=== PATIENT | female | born 1935 | race Caucasian/White ===

== ENCOUNTER 2018-03-27 16:18 | Inpatient (IN) | payer MEDICARE ==
[~2018-03-27] VITALS: Ht 162.6 cm; Wt 51.0 kg
[2018-03-27] MEDS ORDERED: DULO30CA2 PO (16:32)
[2018-03-27] MEDS ORDERED: IRBE300T3 PO (16:32)
[2018-03-27] MEDS ORDERED: MEMA10TA PO (16:32)
[2018-03-27] MEDS ORDERED: MELA3TAB2 PO (16:32)
[2018-03-27] MEDS ORDERED: ATOR10TA60 PO (16:32)
[2018-03-27] MEDS ORDERED: QUET25TA5 PO (16:32)
[2018-03-27] MEDS ORDERED: [UNRECOGNIZED DRUG - OTHER] SWSP (16:32)
[2018-03-27] MEDS ORDERED: TRAM50TA PO (16:32)
[2018-03-27 16:50] LABS: BASO # 0.1 x10^3/uL (0.0-0.2); BASO % 1 % (0-3); EOS # 0.1 x10^3/uL (0.0-0.7); EOS % 1 % (0-3); HEMATOCRIT 42.9 % (36.0-47.0); HEMOGLOBIN 14.3 g/dL (12.0-15.5); LYMPH # 3.3 x10^3/uL (1.0-4.8); LYMPH % 30 % (24-48); MEAN CORPUSCULAR HEMOGLOBIN 31 pg (25-35); MEAN CORPUSCULAR HGB CONC 33 g/dL (31-37); MEAN CORPUSCULAR VOLUME 94 fL (79-100); MONO # 0.9 x10^3/uL (0.0-1.1); MONO % 8 % (0-9); NEUT # 6.7 x10^3uL (1.8-7.7); NEUT % 60 % (31-73); PLATELET COUNT 229 x10^3/uL (140-400); RED BLOOD COUNT 4.57 x10^6/uL (3.50-5.40); WHITE BLOOD COUNT 11.2 x10^3/uL (4.0-11.0)
[2018-03-27 17:03] LABS: ALBUMIN 4.5 g/dL (3.4-5.0); ALBUMIN/GLOBULIN RATIO 1.2 (1.0-1.7); CALCIUM 10.5 mg/dL (8.5-10.1); CREATININE 1.6 mg/dL (0.6-1.0); GFR 30.9; POTASSIUM 3.5 mmol/L (3.5-5.1); TOTAL BILIRUBIN 0.7 mg/dL (0.2-1.0); TOTAL PROTEIN 8.2 g/dL (6.4-8.2)
--- NOTE | 2018-03-27 17:09 | EKG ---
[address] [address] Test Date: 2018-03-27 Test Time: 16:46:52 Pat Name: KLARISSA GRIGSBY Department: Room: Gender: F [employer] Maker: JASMEET : 1935 Requested By: NIMESH VASQUEZ Order Number: [id number] Reading MD: Curt Cordero Measurements Intervals [place] Rate: 85 P: 59 OK: 138 QRS: -20 QRSD: 94 T: 14 QT: 362 QTc: 436 Interpretive Statements SINUS RHYTHM LEFTWARD AXIS Electronically Signed On 03-31-2018 9:41:13 ASSISTANT HV[employer] MECH[employer]IC by Curt Cordero
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
[2018-03-27 17:38] LABS: BACTERIA,URINE 0 /HPF (0-FEW); BILIRUBIN,URINE NEG (NEG); CLARITY,URINE HAZY; COLOR,URINE AMBER; GLUCOSE,URINE NEG (NEG); HYALINE CASTS, URINE OCC /HPF; NITRITE,URINE NEG (NEG); RBC,URINE 0 /HPF (0-2); SQUAMOUS EPITHELIAL CELL,UR OCC /LPF; UROBILINOGEN,URINE 0.2 mg/dL (0.2 mg/dL)
[2018-03-27] MEDS ORDERED: SMZ/TMP 800/160MG TABLET. PO ONE (18:00)
[2018-03-27] MEDS ORDERED: ACETAMINOPHEN 325 MG TABLET PO PRN (18:15)
[2018-03-27] MEDS ORDERED: METHYL SALICYLATE/MENTHOL TOPICAL OINTMENT 29GM TUBE. TP PRN (18:15)
[2018-03-27] MEDS ORDERED: MAG HYDROX/AL HYDROX/SIMETH 30 ML ORAL.SUSP PO PRN (18:15)
[2018-03-27 18:17] VITALS: BP 172/94
[2018-03-27] MEDS: MELATONIN 3 MG TABLET PO SCH ×2 (19:41→21:00)
[2018-03-27] MEDS: QUEtiapine 25 MG TABLET. PO SCH ×2 (19:41→21:00)
[2018-03-27] MEDS: ATORVASTATIN CALCIUM 10 MG TABLET. PO SCH (20:31)
[2018-03-27] MEDS: MEMANTINE 10 MG TABLET. PO SCH (20:31)
[2018-03-27] MEDS: LIDOCAINE 2% VISCOUS 15 ML SOLUTION. SWSW SCH (21:00)
[2018-03-28] MEDS: QUEtiapine 25 MG TABLET. PO SCH ×2 (01:37→19:55)
[2018-03-28] MEDS: MELATONIN 3 MG TABLET PO SCH ×2 (01:37→19:55)
[2018-03-28 06:17] VITALS: BP 154/97
[2018-03-28] MEDS: MEMANTINE 10 MG TABLET. PO SCH ×2 (07:49→19:55)
[2018-03-28] MEDS: DULoxetine HCL 30 MG CAPSULE.DR PO SCH (07:49)
[2018-03-28] MEDS: LIDOCAINE 2% VISCOUS 15 ML SOLUTION. SWSW SCH ×4 (07:49→20:39)
[2018-03-28] MEDS: IRBESARTAN 150 MG PO SCH ×2 (07:49→07:50)
[2018-03-28] MEDS: traMADol 50 MG TABLET PO PRN ×2 (13:18→20:19)
[2018-03-28 15:49] VITALS: BP 159/93
[2018-03-28] MEDS: LISINOPRIL 10 MG TABLET PO SCH (16:31)
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
[2018-03-28 19:01] LABS: THYROID STIM HORMONE (TSH) 1.853 uIU/mL (0.358-3.740)
[2018-03-28] MEDS: ATORVASTATIN CALCIUM 10 MG TABLET. PO SCH (19:55)
[2018-03-28 21:09] LABS: THYROXINE 7.3 ug/dL (4.5-12.0)
[2018-03-29 00:08] LABS: HEMOGLOBIN A1C 5.5 % (4.8-5.6)
[2018-03-29 06:08] VITALS: BP 128/61
[2018-03-29] MEDS: MEMANTINE 10 MG TABLET. PO SCH ×2 (08:08→20:17)
[2018-03-29] MEDS: LIDOCAINE 2% VISCOUS 15 ML SOLUTION. SWSW SCH ×4 (08:08→20:39)
[2018-03-29] MEDS: DULoxetine HCL 30 MG CAPSULE.DR PO SCH (08:08)
[2018-03-29] MEDS: LISINOPRIL 10 MG TABLET PO SCH (08:08)
[2018-03-29] MEDS: NYSTATIN TOPICAL POWDER 15GM BOTTLE. TP SCH ×2 (08:09→20:40)
[2018-03-29] MEDS: traMADol 50 MG TABLET PO PRN (13:32)
[2018-03-29 15:58] VITALS: BP 127/84
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
[2018-03-29] MEDS: ATORVASTATIN CALCIUM 10 MG TABLET. PO SCH (20:17)
[2018-03-29] MEDS: QUEtiapine 25 MG TABLET. PO SCH (20:17)
[2018-03-29] MEDS: MELATONIN 3 MG TABLET PO SCH (20:17)
[2018-03-30 05:59] VITALS: BP 153/93
[2018-03-30] MEDS: LIDOCAINE 2% VISCOUS 15 ML SOLUTION. SWSW SCH ×4 (07:48→19:31)
[2018-03-30] MEDS: MEMANTINE 10 MG TABLET. PO SCH ×2 (09:11→19:30)
[2018-03-30] MEDS: DULoxetine HCL 30 MG CAPSULE.DR PO SCH (09:11)
[2018-03-30] MEDS: NYSTATIN TOPICAL POWDER 15GM BOTTLE. TP SCH ×2 (09:11→19:31)
[2018-03-30] MEDS: LISINOPRIL 10 MG TABLET PO SCH (09:11)
[2018-03-30 14:04] VITALS: BP 177/74
[2018-03-30 14:17] VITALS: BP 150/80
[2018-03-30 16:34] VITALS: BP 143/90
[2018-03-30 16:35] VITALS: BP 117/79
[2018-03-30 16:39] VITALS: BP 143/90
[2018-03-30] MEDS: QUEtiapine 25 MG TABLET. PO SCH (19:30)
[2018-03-30] MEDS: ATORVASTATIN CALCIUM 10 MG TABLET. PO SCH (19:30)
[2018-03-30] MEDS: MELATONIN 3 MG TABLET PO SCH (19:31)
[2018-03-31 05:51] VITALS: BP 151/83
[2018-03-31] MEDS: LIDOCAINE 2% VISCOUS 15 ML SOLUTION. SWSW SCH ×4 (07:30→20:21)
[2018-03-31] MEDS: DULoxetine HCL 30 MG CAPSULE.DR PO SCH (07:40)
[2018-03-31] MEDS: LISINOPRIL 10 MG TABLET PO SCH (07:40)
[2018-03-31] MEDS: MEMANTINE 10 MG TABLET. PO SCH ×2 (07:40→20:20)
[2018-03-31] MEDS: NYSTATIN TOPICAL POWDER 15GM BOTTLE. TP SCH ×2 (07:41→20:23)
--- NOTE | 2018-03-31 09:16 | PDOC ---
Exam Note: Eddie Note: Late entry for DOS 03/30/2018. Please also refer to the separate dictated note~ for this date of service dictated separately. Discussed the patient with Nursing staff reviewed the chart.~Reviewed interim history and current functioning. Reviewed vital signs,~Labs/ Radiology~and current medications noted below. Continue current treatment with the changes noted in the dictated addendum note Assessment: Vital Signs: VS - Last 72 Hours, by Label Date Time Temp Pulse Resp B/P (MAP) Pulse Ox O2 Delivery O2 Flow Rate FiO2 03/31/18 07:40 80 151/83 03/31/18 05:51 98.1 80 16 151/83 (105) 99 03/30/18 16:39 97.4 95 16 143/90 (107) 98 03/30/18 16:35 97.7 105 16 117/79 (92) 98 03/30/18 16:34 97.4 95 16 143/90 (107) 98 03/30/18 14:17 95 150/80 (103) 98 Room Air 03/30/18 14:04 98.9 102 177/74 (108) 93 Room Air 03/30/18 09:11 63 153/93 03/30/18 05:59 97.0 63 20 153/93 (113) 99 03/29/18 15:58 98.0 90 18 127/84 (98) 97 03/29/18 08:08 66 128/61 03/29/18 06:08 98.0 66 20 128/61 (83) 12 03/28/18 21:19 97 03/28/18 20:19 97 03/28/18 16:31 73 159/93 03/28/18 15:49 98.3 73 20 159/93 (115) 97 Vital Signs Date Time Temp Pulse Resp B/P (MAP) Pulse Ox O2 Delivery O2 Flow Rate FiO2 03/31/18 07:40 80 151/83 03/31/18 05:51 98.1 16 99 03/30/18 14:17 Room Air I&O Intake and Output 03/31/18 07:01 Intake Total 300 ml Balance 300 ml Intake Oral 300 ml Current Medications: Meds: Current Medications Trimethoprim/ Sulfamethoxazole (Bactrim Ds) 1 tab 1X ONCE PO Last administered on 03/27/18at 18:31; Start 03/27/18 at 18:00; Stop 03/28/18 at 14:01 ; Status DC Acetaminophen (Tylenol) 650 mg PRN Q6HRS PRN PO PAIN / TEMP; Start 03/27/18 at 18:15 Multi-Ingredient Ointment (Analgesic [place]) 1 majo PRN QID PRN TP MUSCLE PAIN; Start 03/27/18 at 18:15 Al Hydroxide/Mg Hydroxide (Mylanta Plus Xs) 15 ml PRN AFTMEALHC PRN PO DYSPEPSIA; Start 03/27/18 at 18:15 Magnesium Hydroxide (Milk Of Magnesia) 2,400 mg PRN QHS PRN PO CONSTIPATION; Start 03/27/18 at 18:15 Tramadol HCl (Ultram) 50 mg PRN Q6HRS PRN PO PAIN Last administered on at 13:32; Start 03/27/18 at 18:15 Atorvastatin Calcium (Lipitor) 10 mg QHS PO Last administered on 03/30/18 19: 30; Start 03/27/18 at 21:00 Duloxetine HCl (Cymbalta) 30 mg DAILY PO Last administered on 03/31/18 07:40; Start 03/28/18 at 09:00 Non-Formulary Medication (Irbesartan ) 150 mg DAILY PO ; Start 03/28/18 at 09:00 ; Stop 03/28/18 at 14:01; Status DC Melatonin 3 mg HS PO Last administered on 03/30/18 19:31; Start 03/27/18 at 21 :00 Memantine (Namenda) 10 mg BID PO Last administered on 03/31/18 07:40; Start at 21:00 Quetiapine Fumarate (SEROquel) 25 mg HS PO Last administered on 03/30/18 19:30 ; Start 03/27/18 at 21:00 Lidocaine HCl (Viscous Lidocaine) 5 ml QIDACHS SWSW Last administered on 16:39; Start 03/27/18 at 21:00 Lisinopril (Prinivil) 10 mg DAILY PO Last administered on 03/31/18 07:40; Start 03/28/18 at 14:00 Olanzapine (ZyPREXA ZYDIS) 2.5 mg PRN Q2HR PRN PO ANXIETY / AGITATION Last administered on 1/15/19at 08:32; Start 03/28/18 at 17:00 Trazodone HCl (Desyrel) 50 mg PRN QHS PRN PO INSOMNIA, MAY REPEAT X1; Start 03/04 at 17:00 Nystatin (Nystop) 1 majo BID TP Last administered on 03/31/18at 07:41; Start at 09:00 Active Scripts Active Reported Tramadol Hcl (Tramadol HCl) 50 Mg Tablet 50 Mg PO PRN Q6HRS PRN Seroquel (Quetiapine Fumarate) 25 Mg Tablet 25 Mg PO HS Namenda (Memantine Hcl) 10 Mg Tablet 10 Mg PO BID [viscous lidocain 2%] 5 Ml SWSP QIDACHS Melatonin 3 Mg Tablet 3 Mg PO HS Irbesartan 300 Mg Tablet 150 Mg PO DAILY Cymbalta (Duloxetine Hcl) 30 Mg Capsule.dr 30 Mg PO DAILY Atorvastatin Calcium 10 Mg Tablet 10 Mg PO QHS I have reviewed the current psychotropics carefully including drug interactions. Risk benefit ratio favors no change other than as noted in my dictated progress note. 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
[2018-03-31] MEDS: traMADol 50 MG TABLET PO PRN ×2 (10:59→20:23)
[2018-03-31 17:16] VITALS: BP 135/85
[2018-03-31] MEDS: traZODone 50 MG TABLET. PO PRN (20:20)
[2018-03-31] MEDS: ATORVASTATIN CALCIUM 10 MG TABLET. PO SCH (20:20)
[2018-03-31] MEDS: QUEtiapine 25 MG TABLET. PO SCH ×2 (20:20→20:23)
[2018-03-31] MEDS: MELATONIN 3 MG TABLET PO SCH (20:20)
--- NOTE | 2018-03-31 21:03 | PN ---
DATE: 03/30/2018 PSYCHIATRIC PROGRESS NOTE This late entry 03/30/2018 covers elements not covered in my initial note. SUBJECTIVE: I met with the patient in the evening at length in her room. Per nursing report, the patient's , Jose visited her and she remains quite resistive to medications, disorganized, agitated when staff was checking her blood pressure. She is unable to cooperate with doing the lidocaine swish and spit. Quite confused. REVIEW OF SYSTEMS: Ambulation impaired. No CV, , pulmonary, eye system symptoms on review. She is quite restless, anxious, constantly moving. MENTAL STATUS EXAM: Oriented to herself. Insight, judgment, recent and remote memory, attention, concentration, fund of knowledge poor, consistent with her diagnosis. IMPRESSION: Major neurocognitive disorder, Alzheimer, vascular with delusion, depression, behavioral disturbance. Rest unchanged. PLAN: Continue psychotropics from initial note. We may consider adjusting the Seroquel to help with her anxiety, restlessness. DERICK LINARES MD DR: HADLEY/maria elena JOB#: [id number] / [id number]
--- NOTE | 2018-03-31 22:43 | PDOC ---
Exam Note: Eddie Note: Please also refer to the separate dictated note~for this date of service dictated separately.~Patient seen individually. Discussed the patient with Nursing staff reviewed the chart.~Reviewed interim history and current functioning. Reviewed vital signs,~Labs/ Radiology~and current medications noted below. Continue current treatment with the changes noted in the dictated addendum note Assessment: Vital Signs: Vital Signs Date Time Temp Pulse Resp B/P (MAP) Pulse Ox O2 Delivery O2 Flow Rate FiO2 03/31/18 21:23 20 97 03/31/18 17:16 98.8 89 135/85 (102) 03/31/18 12:15 Room Air I&O Intake and Output 03/31/18 07:01 Intake Total 300 ml Balance 300 ml Intake Oral 300 ml Current Medications: Meds: Current Medications Trimethoprim/ Sulfamethoxazole (Bactrim Ds) 1 tab 1X ONCE PO Last administered on 03/27/18at 18:31; Start 03/27/18 at 18:00; Stop 03/28/18 at 14:01 ; Status DC Acetaminophen (Tylenol) 650 mg PRN Q6HRS PRN PO PAIN / TEMP; Start 03/27/18 at 18:15 Multi-Ingredient Ointment (Analgesic [place]) 1 majo PRN QID PRN TP MUSCLE PAIN; Start 03/27/18 at 18:15 Al Hydroxide/Mg Hydroxide (Mylanta Plus Xs) 15 ml PRN AFTMEALHC PRN PO DYSPEPSIA; Start 03/27/18 at 18:15 Magnesium Hydroxide (Milk Of Magnesia) 2,400 mg PRN QHS PRN PO CONSTIPATION; Start 03/27/18 at 18:15 Tramadol HCl (Ultram) 50 mg PRN Q6HRS PRN PO PAIN Last administered on at 20:23; Start 03/27/18 at 18:15 Atorvastatin Calcium (Lipitor) 10 mg QHS PO Last administered on 03/31/18at 20: 20; Start 03/27/18 at 21:00 Duloxetine HCl (Cymbalta) 30 mg DAILY PO Last administered on 03/31/18at 07:40; Start 03/28/18 at 09:00 Non-Formulary Medication (Irbesartan ) 150 mg DAILY PO ; Start 03/28/18 at 09:00 ; Stop 03/28/18 at 14:01; Status DC Melatonin 3 mg HS PO Last administered on 03/31/18 20:20; Start 03/27/18 at 21 :00 Memantine (Namenda) 10 mg BID PO Last administered on 03/31/18 20:20; Start at 21:00 Quetiapine Fumarate (SEROquel) 25 mg HS PO Last administered on 03/31/18 20:20 ; Start 03/27/18 at 21:00; Stop 03/31/18 at 21:00; Status DC Lidocaine HCl (Viscous Lidocaine) 5 ml QIDACHS SWSW Last administered on 20:21; Start 03/27/18 at 21:00 Lisinopril (Prinivil) 10 mg DAILY PO Last administered on 03/31/18 07:40; Start 03/28/18 at 14:00 Olanzapine (ZyPREXA ZYDIS) 2.5 mg PRN Q2HR PRN PO ANXIETY / AGITATION Last administered on 03/31/18 20:22; Start 03/28/18 at 17:00 Trazodone HCl (Desyrel) 50 mg PRN QHS PRN PO INSOMNIA, MAY REPEAT X1 Last administered on 03/31/18 20:20; Start 03/28/18 at 17:00 Nystatin (Nystop) 1 majo BID TP Last administered on 03/31/18 20:23; Start at 09:00 Quetiapine Fumarate (SEROquel) 12.5 mg TID@0900,1700,2100 PO Last administered on 03/31/18 20:23; Start 03/31/18 at 21:00 Active Scripts Active Reported Tramadol Hcl (Tramadol HCl) 50 Mg Tablet 50 Mg PO PRN Q6HRS PRN Seroquel (Quetiapine Fumarate) 25 Mg Tablet 25 Mg PO HS Namenda (Memantine Hcl) 10 Mg Tablet 10 Mg PO BID [viscous lidocain 2%] 5 Ml SWSP QIDACHS Melatonin 3 Mg Tablet 3 Mg PO HS Irbesartan 300 Mg Tablet 150 Mg PO DAILY Cymbalta (Duloxetine Hcl) 30 Mg Capsule.dr 30 Mg PO DAILY Atorvastatin Calcium 10 Mg Tablet 10 Mg PO QHS I have reviewed the current psychotropics carefully including drug interactions. Risk benefit ratio favors no change other than as noted in my dictated progress note. Diagnosis: Problems: (1) Dementia (2) Agitation (3) Anxiety disorder (4) Dementia, vascular, with delusions (5) Dementia, vascular, with depression (6) Dementia in Alzheimer's disease with depression (7) Dementia in Alzheimer's disease with delusions (8) Impulse control disorder DERICK LINARES MD Mar 31, 2018 22:43
[2018-04-01 05:47] VITALS: BP 159/89
[2018-04-01 07:17] LABS: BASO % 1 % (0-3); EOS # 0.2 x10^3/uL (0.0-0.7); EOS % 3 % (0-3); HEMATOCRIT 38.5 % (36.0-47.0); HEMOGLOBIN 12.8 g/dL (12.0-15.5); LYMPH # 2.6 x10^3/uL (1.0-4.8); LYMPH % 42 % (24-48); MEAN CORPUSCULAR HEMOGLOBIN 31 pg (25-35); MEAN CORPUSCULAR HGB CONC 33 g/dL (31-37); MEAN CORPUSCULAR VOLUME 94 fL (79-100); MONO # 0.6 x10^3/uL (0.0-1.1); MONO % 10 % (0-9); NEUT # 2.7 x10^3uL (1.8-7.7); NEUT % 44 % (31-73); PLATELET COUNT 162 x10^3/uL (140-400); RED BLOOD COUNT 4.11 x10^6/uL (3.50-5.40); WHITE BLOOD COUNT 6.2 x10^3/uL (4.0-11.0)
[2018-04-01 07:31] LABS: ALBUMIN 3.8 g/dL (3.4-5.0); ALBUMIN/GLOBULIN RATIO 1.2 (1.0-1.7); CALCIUM 9.8 mg/dL (8.5-10.1); CREATININE 1.6 mg/dL (0.6-1.0); GFR 30.9; POTASSIUM 3.5 mmol/L (3.5-5.1); TOTAL BILIRUBIN 0.7 mg/dL (0.2-1.0)
[2018-04-01] MEDS: LISINOPRIL 10 MG TABLET PO SCH (08:00)
[2018-04-01] MEDS: DULoxetine HCL 30 MG CAPSULE.DR PO SCH (08:01)
[2018-04-01] MEDS: QUEtiapine 25 MG TABLET. PO SCH ×3 (08:01→19:52)
[2018-04-01] MEDS: MEMANTINE 10 MG TABLET. PO SCH ×2 (08:01→19:58)
[2018-04-01] MEDS: NYSTATIN TOPICAL POWDER 15GM BOTTLE. TP SCH ×2 (08:01→19:59)
[2018-04-01] MEDS: LIDOCAINE 2% VISCOUS 15 ML SOLUTION. SWSW SCH (08:02)
[2018-04-01] MEDS: traMADol 50 MG TABLET PO PRN (10:31)
[2018-04-01 15:51] VITALS: BP 132/82
[2018-04-01] MEDS: traZODone 50 MG TABLET. PO PRN (19:53)
[2018-04-01] MEDS: MELATONIN 3 MG TABLET PO SCH (19:53)
[2018-04-01] MEDS: ATORVASTATIN CALCIUM 10 MG TABLET. PO SCH (19:53)
--- NOTE | 2018-04-01 20:27 | PN ---
DATE: 03/31/2018 PSYCHIATRIC PROGRESS NOTE This late entry 03/31/2018 covers elements not covered in my initial note. SUBJECTIVE: I met with the patient in the evening. The patient slept 7-3/4 hours previous night, remains quite confused, agitated, disorganized, threw her book in a rather aggressive manner at another patient. Received Zyprexa, had to be placed in the [place]. Gait is unsteady. Information from the family relates that she has a long history of anxiety and in the 1940s, she would carry Valium with her all the time for the anxiety. REVIEW OF SYSTEMS: No CV, , pulmonary, eye, ENT system symptoms on review. Reliability poor. MENTAL STATUS EXAM: Oriented to herself. Insight, judgment, recent and remote memory, attention, concentration, fund of knowledge poor, consistent with her diagnosis. She seems quite paranoid as I met with her at some length. LABORATORY DATA: Reviewed. IMPRESSION: Major neurocognitive disorder, Alzheimer, vascular with delusion, depression, behavioral disturbance; anxiety disorder, unspecified; impulse control disorder, unspecified. PLAN: Change Seroquel 25 mg at bedtime to 12.5 mg 9 a.m., 5:00 p.m. and at bedtime. Maintain Namenda, Cymbalta along with Zyprexa p.r.n., trazodone p.r.n. for now. DERICK LINARES MD DR: HADLEY/maria elena JOB#: [id number] / [id number]
--- NOTE | 2018-04-01 22:41 | PDOC ---
Exam Note: Eddie Note: Please also refer to the separate dictated note~for this date of service dictated separately.~Patient seen individually. Discussed the patient with Nursing staff reviewed the chart.~Reviewed interim history and current functioning. Reviewed vital signs,~Labs/ Radiology~and current medications noted below. Continue current treatment with the changes noted in the dictated addendum note Assessment: Vital Signs: Vital Signs Date Time Temp Pulse Resp B/P (MAP) Pulse Ox O2 Delivery O2 Flow Rate FiO2 04/01/18 15:51 98.4 84 18 132/82 (99) 95 04/01/18 12:40 Room Air I&O Intake and Output 04/01/18 07:01 Intake Total 600 ml Balance 600 ml Intake Oral 600 ml # Bowel Movements 1 Labs: Laboratory Tests Test 04/01/18 06:48 White Blood Count 6.2 x10^3/uL (4.0-11.0) Red Blood Count 4.11 x10^6/uL (3.50-5.40) Hemoglobin 12.8 g/dL (12.0-15.5) Hematocrit 38.5 % (36.0-47.0) Mean Corpuscular Volume 94 fL (79-100) Mean Corpuscular Hemoglobin 31 pg (25-35) Mean Corpuscular Hemoglobin Concent 33 g/dL (31-37) Red Cell Distribution Width 13.0 % (11.5-14.5) Platelet Count 162 x10^3/uL (140-400) Neutrophils (%) (Auto) 44 % (31-73) Lymphocytes (%) (Auto) 42 % (24-48) Monocytes (%) (Auto) 10 % (0-9) H Eosinophils (%) (Auto) 3 % (0-3) Basophils (%) (Auto) 1 % (0-3) Neutrophils # (Auto) 2.7 x10^3uL (1.8-7.7) Lymphocytes # (Auto) 2.6 x10^3/uL (1.0-4.8) Monocytes # (Auto) 0.6 x10^3/uL (0.0-1.1) Eosinophils # (Auto) 0.2 x10^3/uL (0.0-0.7) Basophils # (Auto) 0.0 x10^3/uL (0.0-0.2) Sodium Level 146 mmol/L (136-145) H Potassium Level 3.5 mmol/L (3.5-5.1) Chloride Level 107 mmol/L (98-107) Carbon Dioxide Level 29 mmol/L (21-32) Anion Gap 10 (6-14) Blood Urea Nitrogen 32 mg/dL (7-20) H Creatinine 1.6 mg/dL (0.6-1.0) H Estimated GFR (Cockcroft-Gault) 30.9 BUN/Creatinine Ratio 20 (6-20) Glucose Level 86 mg/dL (70-99) Calcium Level 9.8 mg/dL (8.5-10.1) Total Bilirubin 0.7 mg/dL (0.2-1.0) Aspartate Amino Transferase (AST) 15 U/L (15-37) Alanine Aminotransferase (ALT) 17 U/L (14-59) Alkaline Phosphatase 48 U/L (46-116) Total Protein 7.0 g/dL (6.4-8.2) Albumin 3.8 g/dL (3.4-5.0) Albumin/Globulin Ratio 1.2 (1.0-1.7) Current Medications: Meds: Current Medications Trimethoprim/ Sulfamethoxazole (Bactrim Ds) 1 tab 1X ONCE PO Last administered on 03/27/18at 18:31; Start 03/27/18 at 18:00; Stop 03/28/18 at 14:01 ; Status DC Acetaminophen (Tylenol) 650 mg PRN Q6HRS PRN PO PAIN / TEMP; Start 03/27/18 at 18:15 Multi-Ingredient Ointment (Analgesic [place]) 1 majo PRN QID PRN TP MUSCLE PAIN; Start 03/27/18 at 18:15 Al Hydroxide/Mg Hydroxide (Mylanta Plus Xs) 15 ml PRN AFTMEALHC PRN PO DYSPEPSIA; Start 03/27/18 at 18:15 Magnesium Hydroxide (Milk Of Magnesia) 2,400 mg PRN QHS PRN PO CONSTIPATION; Start 03/27/18 at 18:15 Tramadol HCl (Ultram) 50 mg PRN Q6HRS PRN PO PAIN Last administered on at 10:31; Start 03/27/18 at 18:15 Atorvastatin Calcium (Lipitor) 10 mg QHS PO Last administered on 04/01/18 19: 53; Start 03/27/18 at 21:00 Duloxetine HCl (Cymbalta) 30 mg DAILY PO Last administered on 04/01/18at 08:01; Start 03/28/18 at 09:00 Non-Formulary Medication (Irbesartan ) 150 mg DAILY PO ; Start 03/28/18 at 09:00 ; Stop 03/28/18 at 14:01; Status DC Melatonin 3 mg HS PO Last administered on 04/01/18 19:53; Start 03/27/18 at 21 :00 Memantine (Namenda) 10 mg BID PO Last administered on 04/01/18 19:58; Start at 21:00 Quetiapine Fumarate (SEROquel) 25 mg HS PO Last administered on 03/31/18 20:20 ; Start 03/27/18 at 21:00; Stop 03/31/18 at 21:00; Status DC Lidocaine HCl (Viscous Lidocaine) 5 ml QIDACHS SWSW Last administered on 08:02; Start 03/27/18 at 21:00; Stop 04/01/18 at 12:18; Status DC Lisinopril (Prinivil) 10 mg DAILY PO Last administered on 04/01/18 08:00; Start 03/28/18 at 14:00 Olanzapine (ZyPREXA ZYDIS) 2.5 mg PRN Q2HR PRN PO ANXIETY / AGITATION Last administered on 03/31/18 20:22; Start 03/28/18 at 17:00 Trazodone HCl (Desyrel) 50 mg PRN QHS PRN PO INSOMNIA, MAY REPEAT X1 Last administered on 04/01/18 19:53; Start 03/28/18 at 17:00 Nystatin (Nystop) 1 majo BID TP Last administered on 04/01/18 19:59; Start at 09:00 Quetiapine Fumarate (SEROquel) 12.5 mg TID@0900,1700,2100 PO Last administered on 04/01/18 19:52; Start 03/31/18 at 21:00 Active Scripts Active Reported Tramadol Hcl (Tramadol HCl) 50 Mg Tablet 50 Mg PO PRN Q6HRS PRN Seroquel (Quetiapine Fumarate) 25 Mg Tablet 25 Mg PO HS Namenda (Memantine Hcl) 10 Mg Tablet 10 Mg PO BID [viscous lidocain 2%] 5 Ml SWSP QIDACHS Melatonin 3 Mg Tablet 3 Mg PO HS Irbesartan 300 Mg Tablet 150 Mg PO DAILY Cymbalta (Duloxetine Hcl) 30 Mg Capsule.dr 30 Mg PO DAILY Atorvastatin Calcium 10 Mg Tablet 10 Mg PO QHS I have reviewed the current psychotropics carefully including drug interactions. Risk benefit ratio favors no change other than as noted in my dictated progress note. Diagnosis: Problems: (1) Dementia (2) Agitation (3) Anxiety disorder (4) Dementia, vascular, with delusions (5) Dementia, vascular, with depression (6) Dementia in Alzheimer's disease with depression (7) Dementia in Alzheimer's disease with delusions (8) Impulse control disorder DERICK LINARES MD Apr 01, 2018 22:41
[2018-04-02 05:15] VITALS: BP 132/85
[2018-04-02] MEDS: MEMANTINE 10 MG TABLET. PO SCH ×2 (08:16→19:10)
[2018-04-02] MEDS: DULoxetine HCL 30 MG CAPSULE.DR PO SCH (08:16)
[2018-04-02] MEDS: QUEtiapine 25 MG TABLET. PO SCH ×3 (08:16→19:13)
[2018-04-02] MEDS: LISINOPRIL 10 MG TABLET PO SCH (08:16)
[2018-04-02] MEDS: NYSTATIN TOPICAL POWDER 15GM BOTTLE. TP SCH ×2 (08:17→19:13)
[2018-04-02 15:51] VITALS: BP 122/76
[2018-04-02] MEDS: MELATONIN 3 MG TABLET PO SCH (19:10)
[2018-04-02] MEDS: ATORVASTATIN CALCIUM 10 MG TABLET. PO SCH (19:10)
[2018-04-02] MEDS: traZODone 50 MG TABLET. PO PRN (19:13)
--- NOTE | 2018-04-02 19:52 | PN ---
DATE: 04/01/2018 This late entry for 04/01/2018 covers elements not covered in my initial note. SUBJECTIVE: I met with the patient in the evening. The patient was quite agitated previous night, slept 6-3/4 hours, drowsy during the day on 04/01/2018, complains of back pain. REVIEW OF SYSTEMS: No CV, , pulmonary, eye system symptoms on review. Reliability poor. Gait unsteady, in [place] chair. MENTAL STATUS EXAM: Oriented to herself. Insight, judgment, recent and remote memory, attention, concentration, fund of knowledge poor, consistent with her diagnosis. No active suicidal ideation. LABORATORY DATA: Reviewed. IMPRESSION: Major neurocognitive disorder, Alzheimer, vascular with delusion, depression, behavioral disturbance; anxiety disorder, unspecified; impulse control disorder, unspecified. PLAN: Continue current psychotropics. No change from initial note. We will adjust further post-assessment over the next day or so. DERICK LINARES MD DR: HADLEY/maria elena JOB#: [id number] / [id number]
--- NOTE | 2018-04-02 23:12 | PDOC ---
Exam Note: Eddie Note: Please also refer to the separate dictated note~for this date of service dictated separately.~Patient seen individually. Discussed the patient with Nursing staff reviewed the chart.~Reviewed interim history and current functioning. Reviewed vital signs,~Labs/ Radiology~and current medications noted below. Continue current treatment with the changes noted in the dictated addendum note Assessment: Vital Signs: Vital Signs Date Time Temp Pulse Resp B/P (MAP) Pulse Ox O2 Delivery O2 Flow Rate FiO2 04/02/18 15:51 97.6 76 17 122/76 (91) 97 Room Air I&O Intake and Output 04/02/18 07:01 Intake Total 740 ml Balance 740 ml Intake Oral 740 ml Current Medications: Meds: Current Medications Trimethoprim/ Sulfamethoxazole (Bactrim Ds) 1 tab 1X ONCE PO Last administered on 03/27/18at 18:31; Start 03/27/18 at 18:00; Stop 03/28/18 at 14:01 ; Status DC Acetaminophen (Tylenol) 650 mg PRN Q6HRS PRN PO PAIN / TEMP; Start 03/27/18 at 18:15 Multi-Ingredient Ointment (Analgesic [place]) 1 majo PRN QID PRN TP MUSCLE PAIN; Start 03/27/18 at 18:15 Al Hydroxide/Mg Hydroxide (Mylanta Plus Xs) 15 ml PRN AFTMEALHC PRN PO DYSPEPSIA; Start 03/27/18 at 18:15 Magnesium Hydroxide (Milk Of Magnesia) 2,400 mg PRN QHS PRN PO CONSTIPATION; Start 03/27/18 at 18:15 Tramadol HCl (Ultram) 50 mg PRN Q6HRS PRN PO PAIN Last administered on at 10:31; Start 03/27/18 at 18:15 Atorvastatin Calcium (Lipitor) 10 mg QHS PO Last administered on 04/02/18at 19: 10; Start 03/27/18 at 21:00 Duloxetine HCl (Cymbalta) 30 mg DAILY PO Last administered on 04/02/18at 08:16; Start 03/28/18 at 09:00 Non-Formulary Medication (Irbesartan ) 150 mg DAILY PO ; Start 03/28/18 at 09:00 ; Stop 03/28/18 at 14:01; Status DC Melatonin 3 mg HS PO Last administered on 04/02/18 19:10; Start 03/27/18 at 21 :00 Memantine (Namenda) 10 mg BID PO Last administered on 04/02/18at 19:10; Start at 21:00 Quetiapine Fumarate (SEROquel) 25 mg HS PO Last administered on 03/31/18at 20:20 ; Start 03/27/18 at 21:00; Stop 03/31/18 at 21:00; Status DC Lidocaine HCl (Viscous Lidocaine) 5 ml QIDACHS SWSW Last administered on 08:02; Start 03/27/18 at 21:00; Stop 04/01/18 at 12:18; Status DC Lisinopril (Prinivil) 10 mg DAILY PO Last administered on 04/02/18at 08:16; Start 03/28/18 at 14:00 Olanzapine (ZyPREXA ZYDIS) 2.5 mg PRN Q2HR PRN PO ANXIETY / AGITATION Last administered on 03/31/18at 20:22; Start 03/28/18 at 17:00 Trazodone HCl (Desyrel) 50 mg PRN QHS PRN PO INSOMNIA, MAY REPEAT X1 Last administered on 04/02/18 19:13; Start 03/28/18 at 17:00 Nystatin (Nystop) 1 majo BID TP Last administered on 04/02/18at 19:13; Start at 09:00 Quetiapine Fumarate (SEROquel) 12.5 mg TID@0900,1700,2100 PO Last administered on 04/02/18at 19:13; Start 03/31/18 at 21:00 Active Scripts Active Reported Tramadol Hcl (Tramadol HCl) 50 Mg Tablet 50 Mg PO PRN Q6HRS PRN Seroquel (Quetiapine Fumarate) 25 Mg Tablet 25 Mg PO HS Namenda (Memantine Hcl) 10 Mg Tablet 10 Mg PO BID [viscous lidocain 2%] 5 Ml SWSP QIDACHS Melatonin 3 Mg Tablet 3 Mg PO HS Irbesartan 300 Mg Tablet 150 Mg PO DAILY Cymbalta (Duloxetine Hcl) 30 Mg Capsule.dr 30 Mg PO DAILY Atorvastatin Calcium 10 Mg Tablet 10 Mg PO QHS I have reviewed the current psychotropics carefully including drug interactions. Risk benefit ratio favors no change other than as noted in my dictated progress note. Diagnosis: Problems: (1) Dementia (2) Agitation (3) Anxiety disorder (4) Dementia, vascular, with delusions (5) Dementia, vascular, with depression (6) Dementia in Alzheimer's disease with depression (7) Dementia in Alzheimer's disease with delusions (8) Impulse control disorder DERICK LINARES MD Apr 02, 2018 23:12
[2018-04-03] MEDS: traMADol 50 MG TABLET PO PRN ×2 (02:34→19:46)
[2018-04-03 05:43] VITALS: BP 151/87
[2018-04-03] MEDS: DULoxetine HCL 30 MG CAPSULE.DR PO SCH (07:07)
[2018-04-03] MEDS: QUEtiapine 25 MG TABLET. PO SCH ×3 (07:07→19:38)
[2018-04-03] MEDS: NYSTATIN TOPICAL POWDER 15GM BOTTLE. TP SCH ×2 (07:07→19:39)
[2018-04-03] MEDS: LISINOPRIL 10 MG TABLET PO SCH (07:07)
[2018-04-03] MEDS: MEMANTINE 10 MG TABLET. PO SCH ×2 (07:07→19:38)
[2018-04-03 16:15] VITALS: BP 134/77
[2018-04-03] MEDS: ATORVASTATIN CALCIUM 10 MG TABLET. PO SCH (19:38)
[2018-04-03] MEDS: MELATONIN 3 MG TABLET PO SCH (19:38)
[2018-04-03] MEDS: MIRTAZAPINE 7.5 MG TABLET. PO SCH (19:38)
--- NOTE | 2018-04-03 20:08 | PN ---
DATE: 04/02/2018 This late entry for 04/02/2018 covers elements not covered in my initial note. SUBJECTIVE: I met with the patient in the evening and staffed at a treatment team meeting with the entire team in the morning. The patient slept 6-1/4 hours previous evening. Appetite is 50%. She is restless, complains of pain, received lidocaine patch, drowsy, disorganized most of the day. Reportedly from her history, she used to be a certified nursing assistant instructor in Humanities at . She did attend physical therapy intervention on 04/02/2018. REVIEW OF SYSTEMS: Ambulation impaired, in wheelchair. No CV, , pulmonary, eye, ENT system symptoms on review. Gait unsteady. MENTAL STATUS EXAM: Oriented to herself. Insight, judgment, recent and remote memory, attention, concentration, fund of knowledge poor, consistent with her diagnosis. IMPRESSION: Major neurocognitive disorder, Alzheimer, vascular with delusion, depression, behavioral disturbance. Rest unchanged from initial note. PLAN: No change from initial note. DERICK LINARES MD DR: HADLEY/maria elena JOB#: [id number] / [id number]
--- NOTE | 2018-04-03 23:56 | PDOC ---
Exam Note: Eddie Note: Please also refer to the separate dictated note~for this date of service dictated separately.~Patient seen individually. Discussed the patient with Nursing staff reviewed the chart.~Reviewed interim history and current functioning. Reviewed vital signs,~Labs/ Radiology~and current medications noted below. Continue current treatment with the changes noted in the dictated addendum note Assessment: Vital Signs: Vital Signs Date Time Temp Pulse Resp B/P (MAP) Pulse Ox O2 Delivery O2 Flow Rate FiO2 04/03/18 20:46 96 04/03/18 16:15 98.0 94 20 134/77 (96) 04/03/18 05:43 Room Air I&O Intake and Output 04/03/18 07:01 Intake Total 420 ml Balance 420 ml Intake Oral 420 ml Current Medications: Meds: Current Medications Trimethoprim/ Sulfamethoxazole (Bactrim Ds) 1 tab 1X ONCE PO Last administered on 03/27/18at 18:31; Start 03/27/18 at 18:00; Stop 03/28/18 at 14:01 ; Status DC Acetaminophen (Tylenol) 650 mg PRN Q6HRS PRN PO PAIN / TEMP; Start 03/27/18 at 18:15 Multi-Ingredient Ointment (Analgesic [place]) 1 majo PRN QID PRN TP MUSCLE PAIN; Start 03/27/18 at 18:15 Al Hydroxide/Mg Hydroxide (Mylanta Plus Xs) 15 ml PRN AFTMEALHC PRN PO DYSPEPSIA; Start 03/27/18 at 18:15 Magnesium Hydroxide (Milk Of Magnesia) 2,400 mg PRN QHS PRN PO CONSTIPATION; Start 03/27/18 at 18:15 Tramadol HCl (Ultram) 50 mg PRN Q6HRS PRN PO PAIN Last administered on at 19:46; Start 03/27/18 at 18:15 Atorvastatin Calcium (Lipitor) 10 mg QHS PO Last administered on 04/03/18at 19: 38; Start 03/27/18 at 21:00 Duloxetine HCl (Cymbalta) 30 mg DAILY PO Last administered on 04/03/18at 07:07; Start 03/28/18 at 09:00 Non-Formulary Medication (Irbesartan ) 150 mg DAILY PO ; Start 03/28/18 at 09:00 ; Stop 03/28/18 at 14:01; Status DC Melatonin 3 mg HS PO Last administered on 04/03/18 19:38; Start 03/27/18 at 21 :00 Memantine (Namenda) 10 mg BID PO Last administered on 04/03/18at 19:38; Start at 21:00 Quetiapine Fumarate (SEROquel) 25 mg HS PO Last administered on 03/31/18at 20:20 ; Start 03/27/18 at 21:00; Stop 03/31/18 at 21:00; Status DC Lidocaine HCl (Viscous Lidocaine) 5 ml QIDACHS SWSW Last administered on at 08:02; Start 03/27/18 at 21:00; Stop 04/01/18 at 12:18; Status DC Lisinopril (Prinivil) 10 mg DAILY PO Last administered on 04/03/18 07:07; Start 03/28/18 at 14:00 Olanzapine (ZyPREXA ZYDIS) 2.5 mg PRN Q2HR PRN PO ANXIETY / AGITATION Last administered on 04/03/18at 02:29; Start 03/28/18 at 17:00 Trazodone HCl (Desyrel) 50 mg PRN QHS PRN PO INSOMNIA, MAY REPEAT X1 Last administered on 04/02/18at 19:13; Start 03/28/18 at 17:00 Nystatin (Nystop) 1 majo BID TP Last administered on 04/03/18at 19:39; Start at 09:00 Quetiapine Fumarate (SEROquel) 12.5 mg TID@0900,1700,2100 PO Last administered on 04/03/18at 19:38; Start 03/31/18 at 21:00 Mirtazapine (Remeron) 7.5 mg QHS PO Last administered on 04/03/18at 19:38; Start 04/03/18 at 21:00 Active Scripts Active Reported Tramadol Hcl (Tramadol HCl) 50 Mg Tablet 50 Mg PO PRN Q6HRS PRN Seroquel (Quetiapine Fumarate) 25 Mg Tablet 25 Mg PO HS Namenda (Memantine Hcl) 10 Mg Tablet 10 Mg PO BID [viscous lidocain 2%] 5 Ml SWSP QIDACHS Melatonin 3 Mg Tablet 3 Mg PO HS Irbesartan 300 Mg Tablet 150 Mg PO DAILY Cymbalta (Duloxetine Hcl) 30 Mg Capsule.dr 30 Mg PO DAILY Atorvastatin Calcium 10 Mg Tablet 10 Mg PO QHS I have reviewed the current psychotropics carefully including drug interactions. Risk benefit ratio favors no change other than as noted in my dictated progress note. Diagnosis: Problems: (1) Dementia (2) Agitation (3) Anxiety disorder (4) Dementia, vascular, with delusions (5) Dementia, vascular, with depression (6) Dementia in Alzheimer's disease with depression (7) Dementia in Alzheimer's disease with delusions (8) Impulse control disorder DERICK LINARES MD Apr 03, 2018 23:56
[2018-04-04 05:28] VITALS: BP 135/87
[2018-04-04] MEDS: MEMANTINE 10 MG TABLET. PO SCH ×2 (07:55→19:40)
[2018-04-04] MEDS: DULoxetine HCL 30 MG CAPSULE.DR PO SCH (07:55)
[2018-04-04] MEDS: LISINOPRIL 10 MG TABLET PO SCH (07:57)
[2018-04-04] MEDS: QUEtiapine 25 MG TABLET. PO SCH ×3 (07:58→19:41)
[2018-04-04] MEDS: NYSTATIN TOPICAL POWDER 15GM BOTTLE. TP SCH ×2 (08:08→19:41)
[2018-04-04 15:33] VITALS: BP 119/80
[2018-04-04] MEDS: CHOLECALCIFEROL (VITAMIN D3) 50,000 UNIT CAPSULE PO SCH (16:13)
[2018-04-04] MEDS: traMADol 50 MG TABLET PO PRN (19:40)
[2018-04-04] MEDS: MIRTAZAPINE 7.5 MG TABLET. PO SCH (19:40)
[2018-04-04] MEDS: MELATONIN 3 MG TABLET PO SCH (19:41)
[2018-04-04] MEDS: ATORVASTATIN CALCIUM 10 MG TABLET. PO SCH (19:41)
--- NOTE | 2018-04-04 23:59 | PDOC ---
Exam Note: Eddie Note: Please also refer to the separate dictated note~for this date of service dictated separately.~Patient seen individually. Discussed the patient with Nursing staff reviewed the chart.~Reviewed interim history and current functioning. Reviewed vital signs,~Labs/ Radiology~and current medications noted below. Continue current treatment with the changes noted in the dictated addendum note Assessment: Vital Signs: Vital Signs Date Time Temp Pulse Resp B/P (MAP) Pulse Ox O2 Delivery O2 Flow Rate FiO2 04/04/18 20:40 94 04/04/18 15:33 97.7 87 18 119/80 (93) 04/03/18 05:43 Room Air I&O Intake and Output 04/04/18 07:01 Intake Total 600 ml Balance 600 ml Intake Oral 600 ml Current Medications: Meds: Current Medications Trimethoprim/ Sulfamethoxazole (Bactrim Ds) 1 tab 1X ONCE PO Last administered on 03/27/18at 18:31; Start 03/27/18 at 18:00; Stop 03/28/18 at 14:01 ; Status DC Acetaminophen (Tylenol) 650 mg PRN Q6HRS PRN PO PAIN / TEMP; Start 03/27/18 at 18:15 Multi-Ingredient Ointment (Analgesic [place]) 1 majo PRN QID PRN TP MUSCLE PAIN; Start 03/27/18 at 18:15 Al Hydroxide/Mg Hydroxide (Mylanta Plus Xs) 15 ml PRN AFTMEALHC PRN PO DYSPEPSIA; Start 03/27/18 at 18:15 Magnesium Hydroxide (Milk Of Magnesia) 2,400 mg PRN QHS PRN PO CONSTIPATION; Start 03/27/18 at 18:15 Tramadol HCl (Ultram) 50 mg PRN Q6HRS PRN PO PAIN Last administered on at 19:40; Start 03/27/18 at 18:15 Atorvastatin Calcium (Lipitor) 10 mg QHS PO Last administered on 04/04/18at 19: 41; Start 03/27/18 at 21:00 Duloxetine HCl (Cymbalta) 30 mg DAILY PO Last administered on 04/04/18at 07:55; Start 03/28/18 at 09:00 Non-Formulary Medication (Irbesartan ) 150 mg DAILY PO ; Start 03/28/18 at 09:00 ; Stop 03/28/18 at 14:01; Status DC Melatonin 3 mg HS PO Last administered on 04/04/18 19:41; Start 03/27/18 at 21 :00 Memantine (Namenda) 10 mg BID PO Last administered on 04/04/18 19:40; Start at 21:00 Quetiapine Fumarate (SEROquel) 25 mg HS PO Last administered on 03/31/18 20:20 ; Start 03/27/18 at 21:00; Stop 03/31/18 at 21:00; Status DC Lidocaine HCl (Viscous Lidocaine) 5 ml QIDACHS SWSW Last administered on 08:02; Start 03/27/18 at 21:00; Stop 04/01/18 at 12:18; Status DC Lisinopril (Prinivil) 10 mg DAILY PO Last administered on 04/04/18 07:57; Start 03/28/18 at 14:00 Olanzapine (ZyPREXA ZYDIS) 2.5 mg PRN Q2HR PRN PO ANXIETY / AGITATION Last administered on 04/03/18 02:29; Start 03/28/18 at 17:00 Trazodone HCl (Desyrel) 50 mg PRN QHS PRN PO INSOMNIA, MAY REPEAT X1 Last administered on 04/02/18 19:13; Start 03/28/18 at 17:00 Nystatin (Nystop) 1 majo BID TP Last administered on 04/04/18 19:41; Start at 09:00 Quetiapine Fumarate (SEROquel) 12.5 mg TID@0900,1700,2100 PO Last administered on 04/04/18 19:41; Start 03/31/18 at 21:00 Mirtazapine (Remeron) 7.5 mg QHS PO Last administered on 04/04/18 19:40; Start 04/03/18 at 21:00 Vitamin D (Vitamin D3) 50,000 unit WEEKLY PO Last administered on 04/04/18 16: 13; Start 04/04/18 at 16:15 Active Scripts Active Reported Tramadol Hcl (Tramadol HCl) 50 Mg Tablet 50 Mg PO PRN Q6HRS PRN Seroquel (Quetiapine Fumarate) 25 Mg Tablet 25 Mg PO HS Namenda (Memantine Hcl) 10 Mg Tablet 10 Mg PO BID [viscous lidocain 2%] 5 Ml SWSP QIDACHS Melatonin 3 Mg Tablet 3 Mg PO HS Irbesartan 300 Mg Tablet 150 Mg PO DAILY Cymbalta (Duloxetine Hcl) 30 Mg Capsule.dr 30 Mg PO DAILY Atorvastatin Calcium 10 Mg Tablet 10 Mg PO QHS I have reviewed the current psychotropics carefully including drug interactions. Risk benefit ratio favors no change other than as noted in my dictated progress note. Diagnosis: Problems: (1) Dementia (2) Agitation (3) Anxiety disorder (4) Dementia, vascular, with delusions (5) Dementia, vascular, with depression (6) Dementia in Alzheimer's disease with depression (7) Dementia in Alzheimer's disease with delusions (8) Impulse control disorder DERICK LINARES MD Apr 04, 2018 23:59
[2018-04-05 05:50] VITALS: BP 141/85
[2018-04-05] MEDS: MEMANTINE 10 MG TABLET. PO SCH ×2 (08:03→19:42)
[2018-04-05] MEDS: QUEtiapine 25 MG TABLET. PO SCH ×3 (08:03→19:42)
[2018-04-05] MEDS: DULoxetine HCL 30 MG CAPSULE.DR PO SCH (08:03)
[2018-04-05] MEDS: LISINOPRIL 10 MG TABLET PO SCH (08:04)
[2018-04-05] MEDS: NYSTATIN TOPICAL POWDER 15GM BOTTLE. TP SCH ×2 (08:04→19:42)
[2018-04-05 15:40] VITALS: BP 128/94
[2018-04-05] MEDS: MELATONIN 3 MG TABLET PO SCH (19:42)
[2018-04-05] MEDS: MIRTAZAPINE 7.5 MG TABLET. PO SCH (19:42)
[2018-04-05] MEDS: ATORVASTATIN CALCIUM 10 MG TABLET. PO SCH (19:42)
[2018-04-05] MEDS: traMADol 50 MG TABLET PO PRN (19:47)
--- NOTE | 2018-04-05 22:32 | PDOC ---
Exam Note: Eddie Note: Please also refer to the separate dictated note~for this date of service dictated separately. Discussed the patient with Nursing staff reviewed the chart.~Reviewed interim history and current functioning. Reviewed vital signs,~ Labs/ Radiology~and current medications noted below. Continue current treatment with the changes noted in the dictated addendum note Assessment: Vital Signs: Vital Signs Date Time Temp Pulse Resp B/P (MAP) Pulse Ox O2 Delivery O2 Flow Rate FiO2 04/05/18 20:47 98 04/05/18 15:40 97.6 90 16 128/94 (105) 04/03/18 05:43 Room Air I&O Intake and Output 04/05/18 07:01 Intake Total 890 ml Output Total 1 ml Balance 889 ml Intake Oral 840 ml Tube Feeding 50 ml Output Urine Total 1 ml Current Medications: Meds: Current Medications Trimethoprim/ Sulfamethoxazole (Bactrim Ds) 1 tab 1X ONCE PO Last administered on 03/27/18at 18:31; Start 03/27/18 at 18:00; Stop 03/28/18 at 14:01 ; Status DC Acetaminophen (Tylenol) 650 mg PRN Q6HRS PRN PO PAIN / TEMP; Start 03/27/18 at 18:15 Multi-Ingredient Ointment (Analgesic [place]) 1 majo PRN QID PRN TP MUSCLE PAIN; Start 03/27/18 at 18:15 Al Hydroxide/Mg Hydroxide (Mylanta Plus Xs) 15 ml PRN AFTMEALHC PRN PO DYSPEPSIA; Start 03/27/18 at 18:15 Magnesium Hydroxide (Milk Of Magnesia) 2,400 mg PRN QHS PRN PO CONSTIPATION; Start 03/27/18 at 18:15 Tramadol HCl (Ultram) 50 mg PRN Q6HRS PRN PO PAIN Last administered on at 19:47; Start 03/27/18 at 18:15 Atorvastatin Calcium (Lipitor) 10 mg QHS PO Last administered on 04/05/18at 19: 42; Start 03/27/18 at 21:00 Duloxetine HCl (Cymbalta) 30 mg DAILY PO Last administered on 04/05/18at 08:03; Start 03/28/18 at 09:00 Non-Formulary Medication (Irbesartan ) 150 mg DAILY PO ; Start 03/28/18 at 09:00 ; Stop 03/28/18 at 14:01; Status DC Melatonin 3 mg HS PO Last administered on 04/05/18 19:42; Start 03/27/18 at 21 :00 Memantine (Namenda) 10 mg BID PO Last administered on 04/05/18at 19:42; Start at 21:00 Quetiapine Fumarate (SEROquel) 25 mg HS PO Last administered on 03/31/18at 20:20 ; Start 03/27/18 at 21:00; Stop 03/31/18 at 21:00; Status DC Lidocaine HCl (Viscous Lidocaine) 5 ml QIDACHS SWSW Last administered on 08:02; Start 03/27/18 at 21:00; Stop 04/01/18 at 12:18; Status DC Lisinopril (Prinivil) 10 mg DAILY PO Last administered on 04/05/18at 08:04; Start 03/28/18 at 14:00 Olanzapine (ZyPREXA ZYDIS) 2.5 mg PRN Q2HR PRN PO ANXIETY / AGITATION Last administered on 04/03/18at 02:29; Start 03/28/18 at 17:00 Trazodone HCl (Desyrel) 50 mg PRN QHS PRN PO INSOMNIA, MAY REPEAT X1 Last administered on 04/02/18 19:13; Start 03/28/18 at 17:00 Nystatin (Nystop) 1 majo BID TP Last administered on 04/05/18 19:42; Start at 09:00 Quetiapine Fumarate (SEROquel) 12.5 mg TID@0900,1700,2100 PO Last administered on 04/05/18 19:42; Start 03/31/18 at 21:00 Mirtazapine (Remeron) 7.5 mg QHS PO Last administered on 04/05/18 19:42; Start 04/03/18 at 21:00 Vitamin D (Vitamin D3) 50,000 unit WEEKLY PO Last administered on 04/04/18 16: 13; Start 04/04/18 at 16:15 Active Scripts Active Reported Tramadol Hcl (Tramadol HCl) 50 Mg Tablet 50 Mg PO PRN Q6HRS PRN Seroquel (Quetiapine Fumarate) 25 Mg Tablet 25 Mg PO HS Namenda (Memantine Hcl) 10 Mg Tablet 10 Mg PO BID [viscous lidocain 2%] 5 Ml SWSP QIDACHS Melatonin 3 Mg Tablet 3 Mg PO HS Irbesartan 300 Mg Tablet 150 Mg PO DAILY Cymbalta (Duloxetine Hcl) 30 Mg Capsule.dr 30 Mg PO DAILY Atorvastatin Calcium 10 Mg Tablet 10 Mg PO QHS I have reviewed the current psychotropics carefully including drug interactions. Risk benefit ratio favors no change other than as noted in my dictated progress note. Diagnosis: Problems: (1) Dementia (2) Agitation (3) Anxiety disorder (4) Dementia, vascular, with delusions (5) Dementia, vascular, with depression (6) Dementia in Alzheimer's disease with depression (7) Dementia in Alzheimer's disease with delusions (8) Impulse control disorder DERICK LINARES MD Apr 05, 2018 22:32
[2018-04-06 05:57] VITALS: BP 167/91
--- NOTE | 2018-04-06 06:55 | PDOC ---
Exam Note: Eddie Note: PSYCHIATRIC PROGRESS NOTE This late entry 04/03/2018 covers elements, not covered in my initial note. SUBJECTIVE: I met with the patient individually in the evening of 04/03/2018. Reviewed information from nursing staff. Reviewed the chart. She slept 2 hours. She was sedated during the day. She got trazodone previous night. REVIEW OF SYSTEMS: Gait unsteady. No CV, , Pulmonary, Eye, ENT system symptoms on review. MENTAL STATUS EXAMINATION: Oriented to herself. Insight and judgment, recent and remote memory, attention and concentration, fund of knowledge poor consistent with her diagnosis. LABORATORY DATA: Reviewed. IMPRESSION: Major neurocognitive disorder, vascular with delusion, depression, behavioral disturbance. Rest unchanged. PLAN: I have carefully reviewed current psychotropics. We will add Remeron 7.5 mg p.o. h.s. Assessment: Vital Signs: VS - Last 72 Hours, by Label Date Time Temp Pulse Resp B/P (MAP) Pulse Ox O2 Delivery O2 Flow Rate FiO2 04/06/18 05:57 97.3 83 16 167/91 (116) 97 04/05/18 20:47 98 04/05/18 15:40 97.6 90 16 128/94 (105) 98 04/05/18 08:04 67 141/85 04/05/18 05:50 97.8 67 16 141/85 (103) 99 04/04/18 19:40 94 04/04/18 15:33 97.7 87 18 119/80 (93) 94 04/04/18 07:57 79 135/87 04/04/18 05:28 98.1 79 18 135/87 (103) 100 04/03/18 19:46 96 04/03/18 16:15 98.0 94 20 134/77 (96) 96 04/03/18 07:07 85 151/87 Vital Signs Date Time Temp Pulse Resp B/P (MAP) Pulse Ox O2 Delivery O2 Flow Rate FiO2 04/06/18 05:57 97.3 83 16 167/91 (116) 97 04/03/18 05:43 Room Air I&O Intake and Output 04/06/18 07:01 Intake Total 720 ml Balance 720 ml Intake Oral 720 ml Current Medications: Meds: Current Medications Trimethoprim/ Sulfamethoxazole (Bactrim Ds) 1 tab 1X ONCE PO Last administered on 03/27/18at 18:31; Start 03/27/18 at 18:00; Stop 03/28/18 at 14:01 ; Status DC Acetaminophen (Tylenol) 650 mg PRN Q6HRS PRN PO PAIN / TEMP; Start 03/27/18 at 18:15 Multi-Ingredient Ointment (Analgesic [place]) 1 majo PRN QID PRN TP MUSCLE PAIN; Start 03/27/18 at 18:15 Al Hydroxide/Mg Hydroxide (Mylanta Plus Xs) 15 ml PRN AFTMEALHC PRN PO DYSPEPSIA; Start 03/27/18 at 18:15 Magnesium Hydroxide (Milk Of Magnesia) 2,400 mg PRN QHS PRN PO CONSTIPATION; Start 03/27/18 at 18:15 Tramadol HCl (Ultram) 50 mg PRN Q6HRS PRN PO PAIN Last administered on at 19:47; Start 03/27/18 at 18:15 Atorvastatin Calcium (Lipitor) 10 mg QHS PO Last administered on 04/05/18at 19: 42; Start 03/27/18 at 21:00 Duloxetine HCl (Cymbalta) 30 mg DAILY PO Last administered on 04/05/18at 08:03; Start 03/28/18 at 09:00 Non-Formulary Medication (Irbesartan ) 150 mg DAILY PO ; Start 03/28/18 at 09:00 ; Stop 03/28/18 at 14:01; Status DC Melatonin 3 mg HS PO Last administered on 04/05/18at 19:42; Start 03/27/18 at 21 :00 Memantine (Namenda) 10 mg BID PO Last administered on 04/05/18at 19:42; Start at 21:00 Quetiapine Fumarate (SEROquel) 25 mg HS PO Last administered on 03/31/18at 20:20 ; Start 03/27/18 at 21:00; Stop 03/31/18 at 21:00; Status DC Lidocaine HCl (Viscous Lidocaine) 5 ml QIDACHS SWSW Last administered on at 08:02; Start 03/27/18 at 21:00; Stop 04/01/18 at 12:18; Status DC Lisinopril (Prinivil) 10 mg DAILY PO Last administered on 04/05/18 08:04; Start 03/28/18 at 14:00 Olanzapine (ZyPREXA ZYDIS) 2.5 mg PRN Q2HR PRN PO ANXIETY / AGITATION Last administered on 04/03/18 02:29; Start 03/28/18 at 17:00 Trazodone HCl (Desyrel) 50 mg PRN QHS PRN PO INSOMNIA, MAY REPEAT X1 Last administered on 04/02/18 19:13; Start 03/28/18 at 17:00 Nystatin (Nystop) 1 majo BID TP Last administered on 04/05/18 19:42; Start at 09:00 Quetiapine Fumarate (SEROquel) 12.5 mg TID@0900,1700,2100 PO Last administered on 04/05/18 19:42; Start 03/31/18 at 21:00 Mirtazapine (Remeron) 7.5 mg QHS PO Last administered on 04/05/18 19:42; Start 04/03/18 at 21:00 Vitamin D (Vitamin D3) 50,000 unit WEEKLY PO Last administered on 04/04/18 16: 13; Start 04/04/18 at 16:15 Active Scripts Active Reported Tramadol Hcl (Tramadol HCl) 50 Mg Tablet 50 Mg PO PRN Q6HRS PRN Seroquel (Quetiapine Fumarate) 25 Mg Tablet 25 Mg PO HS Namenda (Memantine Hcl) 10 Mg Tablet 10 Mg PO BID [viscous lidocain 2%] 5 Ml SWSP QIDACHS Melatonin 3 Mg Tablet 3 Mg PO HS Irbesartan 300 Mg Tablet 150 Mg PO DAILY Cymbalta (Duloxetine Hcl) 30 Mg Capsule.dr 30 Mg PO DAILY Atorvastatin Calcium 10 Mg Tablet 10 Mg PO QHS I have reviewed the current psychotropics carefully including drug interactions. Risk benefit ratio favors no change other than as noted in my dictated progress note. Diagnosis: Problems: (1) Dementia (2) Agitation (3) Anxiety disorder (4) Dementia, vascular, with delusions (5) Dementia, vascular, with depression (6) Dementia in Alzheimer's disease with depression (7) Dementia in Alzheimer's disease with delusions (8) Impulse control disorder DERICK LINARES MD Apr 06, 2018 06:55
--- NOTE | 2018-04-06 07:13 | PDOC ---
Exam Note: Eddie Note: PSYCHIATRIC PROGRESS NOTE This late entry 04/04/2018 covers elements, not covered in my initial note. SUBJECTIVE: I met with the patient individually in the evening of 04/04/2018. Reviewed information from nursing staff. Reviewed the chart. She slept 7-1/2 hours. She did well previous night. She was disorganized, restless, agitated, unable to ambulate in wheelchair, but walking little bit better to the bathroom , which is an improvement. Rest unchanged. REVIEW OF SYSTEMS: Gait unsteady. No CV, , Pulmonary, Eye, ENT system symptoms on review. MENTAL STATUS EXAMINATION: Oriented to herself. Insight and judgment, recent and remote memory, attention and concentration, fund of knowledge poor consistent with her diagnosis. LABORATORY DATA: Reviewed. IMPRESSION: Major neurocognitive disorder, vascular with delusion, depression, behavioral disturbance. Rest unchanged. PLAN: I have carefully reviewed her current psychotropics. There is no change from my initial note. Assessment: Vital Signs: VS - Last 72 Hours, by Label Date Time Temp Pulse Resp B/P (MAP) Pulse Ox O2 Delivery O2 Flow Rate FiO2 04/06/18 05:57 97.3 83 16 167/91 (116) 97 04/05/18 20:47 98 04/05/18 15:40 97.6 90 16 128/94 (105) 98 04/05/18 08:04 67 141/85 04/05/18 05:50 97.8 67 16 141/85 (103) 99 04/04/18 19:40 94 04/04/18 15:33 97.7 87 18 119/80 (93) 94 04/04/18 07:57 79 135/87 04/04/18 05:28 98.1 79 18 135/87 (103) 100 04/03/18 19:46 96 04/03/18 16:15 98.0 94 20 134/77 (96) 96 Vital Signs Date Time Temp Pulse Resp B/P (MAP) Pulse Ox O2 Delivery O2 Flow Rate FiO2 04/06/18 05:57 97.3 83 16 167/91 (116) 97 04/03/18 05:43 Room Air I&O Intake and Output 04/06/18 07:01 Intake Total 720 ml Balance 720 ml Intake Oral 720 ml Current Medications: Meds: Current Medications Trimethoprim/ Sulfamethoxazole (Bactrim Ds) 1 tab 1X ONCE PO Last administered on 03/27/18at 18:31; Start 03/27/18 at 18:00; Stop 03/28/18 at 14:01 ; Status DC Acetaminophen (Tylenol) 650 mg PRN Q6HRS PRN PO PAIN / TEMP; Start 03/27/18 at 18:15 Multi-Ingredient Ointment (Analgesic [place]) 1 majo PRN QID PRN TP MUSCLE PAIN; Start 03/27/18 at 18:15 Al Hydroxide/Mg Hydroxide (Mylanta Plus Xs) 15 ml PRN AFTMEALHC PRN PO DYSPEPSIA; Start 03/27/18 at 18:15 Magnesium Hydroxide (Milk Of Magnesia) 2,400 mg PRN QHS PRN PO CONSTIPATION; Start 03/27/18 at 18:15 Tramadol HCl (Ultram) 50 mg PRN Q6HRS PRN PO PAIN Last administered on at 19:47; Start 03/27/18 at 18:15 Atorvastatin Calcium (Lipitor) 10 mg QHS PO Last administered on 04/05/18at 19: 42; Start 03/27/18 at 21:00 Duloxetine HCl (Cymbalta) 30 mg DAILY PO Last administered on 04/05/18at 08:03; Start 03/28/18 at 09:00 Non-Formulary Medication (Irbesartan ) 150 mg DAILY PO ; Start 03/28/18 at 09:00 ; Stop 03/28/18 at 14:01; Status DC Melatonin 3 mg HS PO Last administered on 04/05/18at 19:42; Start 03/27/18 at 21 :00 Memantine (Namenda) 10 mg BID PO Last administered on 04/05/18at 19:42; Start at 21:00 Quetiapine Fumarate (SEROquel) 25 mg HS PO Last administered on 03/31/18at 20:20 ; Start 03/27/18 at 21:00; Stop 03/31/18 at 21:00; Status DC Lidocaine HCl (Viscous Lidocaine) 5 ml QIDACHS SWSW Last administered on at 08:02; Start 03/27/18 at 21:00; Stop 04/01/18 at 12:18; Status DC Lisinopril (Prinivil) 10 mg DAILY PO Last administered on 04/05/18 08:04; Start 03/28/18 at 14:00 Olanzapine (ZyPREXA ZYDIS) 2.5 mg PRN Q2HR PRN PO ANXIETY / AGITATION Last administered on 04/03/18 02:29; Start 03/28/18 at 17:00 Trazodone HCl (Desyrel) 50 mg PRN QHS PRN PO INSOMNIA, MAY REPEAT X1 Last administered on 04/02/18 19:13; Start 03/28/18 at 17:00 Nystatin (Nystop) 1 majo BID TP Last administered on 04/05/18 19:42; Start at 09:00 Quetiapine Fumarate (SEROquel) 12.5 mg TID@0900,1700,2100 PO Last administered on 04/05/18 19:42; Start 03/31/18 at 21:00 Mirtazapine (Remeron) 7.5 mg QHS PO Last administered on 04/05/18 19:42; Start 04/03/18 at 21:00 Vitamin D (Vitamin D3) 50,000 unit WEEKLY PO Last administered on 04/04/18 16: 13; Start 04/04/18 at 16:15 Active Scripts Active Reported Tramadol Hcl (Tramadol HCl) 50 Mg Tablet 50 Mg PO PRN Q6HRS PRN Seroquel (Quetiapine Fumarate) 25 Mg Tablet 25 Mg PO HS Namenda (Memantine Hcl) 10 Mg Tablet 10 Mg PO BID [viscous lidocain 2%] 5 Ml SWSP QIDACHS Melatonin 3 Mg Tablet 3 Mg PO HS Irbesartan 300 Mg Tablet 150 Mg PO DAILY Cymbalta (Duloxetine Hcl) 30 Mg Capsule.dr 30 Mg PO DAILY Atorvastatin Calcium 10 Mg Tablet 10 Mg PO QHS I have reviewed the current psychotropics carefully including drug interactions. Risk benefit ratio favors no change other than as noted in my dictated progress note. Diagnosis: Problems: (1) Dementia (2) Agitation (3) Anxiety disorder (4) Dementia, vascular, with delusions (5) Dementia, vascular, with depression (6) Dementia in Alzheimer's disease with depression (7) Dementia in Alzheimer's disease with delusions (8) Impulse control disorder DERICK LINARES MD Apr 06, 2018 07:13
[2018-04-06] MEDS: QUEtiapine 25 MG TABLET. PO SCH ×3 (07:47→19:21)
[2018-04-06] MEDS: DULoxetine HCL 30 MG CAPSULE.DR PO SCH (07:47)
[2018-04-06] MEDS: NYSTATIN TOPICAL POWDER 15GM BOTTLE. TP SCH ×2 (07:48→19:21)
[2018-04-06] MEDS: MEMANTINE 10 MG TABLET. PO SCH ×2 (07:48→19:20)
[2018-04-06] MEDS: LISINOPRIL 10 MG TABLET PO SCH (07:48)
[2018-04-06 16:40] VITALS: BP 165/93
[2018-04-06] MEDS: ATORVASTATIN CALCIUM 10 MG TABLET. PO SCH (19:20)
[2018-04-06] MEDS: MIRTAZAPINE 7.5 MG TABLET. PO SCH (19:20)
[2018-04-06] MEDS: MELATONIN 3 MG TABLET PO SCH (19:20)
[2018-04-06] MEDS: MAGNESIUM HYDROXIDE 2,400 MG/30 ML ORAL.SUSP. PO PRN (19:23)
[2018-04-06] MEDS: traMADol 50 MG TABLET PO PRN (19:23)
--- NOTE | 2018-04-06 22:32 | PDOC ---
Exam Note: Eddie Note: Please also refer to the separate dictated note~for this date of service dictated separately.~Patient seen individually. Discussed the patient with Nursing staff reviewed the chart.~Reviewed interim history and current functioning. Reviewed vital signs,~Labs/ Radiology~and current medications noted below. Continue current treatment with the changes noted in the dictated addendum note Assessment: Vital Signs: Vital Signs Date Time Temp Pulse Resp B/P (MAP) Pulse Ox O2 Delivery O2 Flow Rate FiO2 04/06/18 20:23 95 04/06/18 16:40 97.6 89 20 165/93 (117) 04/03/18 05:43 Room Air I&O Intake and Output 04/06/18 07:01 Intake Total 720 ml Balance 720 ml Intake Oral 720 ml Current Medications: Meds: Current Medications Trimethoprim/ Sulfamethoxazole (Bactrim Ds) 1 tab 1X ONCE PO Last administered on 03/27/18at 18:31; Start 03/27/18 at 18:00; Stop 03/28/18 at 14:01 ; Status DC Acetaminophen (Tylenol) 650 mg PRN Q6HRS PRN PO PAIN / TEMP; Start 03/27/18 at 18:15 Multi-Ingredient Ointment (Analgesic [place]) 1 majo PRN QID PRN TP MUSCLE PAIN; Start 03/27/18 at 18:15 Al Hydroxide/Mg Hydroxide (Mylanta Plus Xs) 15 ml PRN AFTMEALHC PRN PO DYSPEPSIA; Start 03/27/18 at 18:15 Magnesium Hydroxide (Milk Of Magnesia) 2,400 mg PRN QHS PRN PO CONSTIPATION Last administered on 04/06/18at 19:23; Start 03/27/18 at 18:15 Tramadol HCl (Ultram) 50 mg PRN Q6HRS PRN PO PAIN Last administered on at 19:23; Start 03/27/18 at 18:15 Atorvastatin Calcium (Lipitor) 10 mg QHS PO Last administered on 04/06/18at 19: 20; Start 03/27/18 at 21:00 Duloxetine HCl (Cymbalta) 30 mg DAILY PO Last administered on 04/06/18at 07:47; Start 03/28/18 at 09:00 Non-Formulary Medication (Irbesartan ) 150 mg DAILY PO ; Start 03/28/18 at 09:00 ; Stop 03/28/18 at 14:01; Status DC Melatonin 3 mg HS PO Last administered on 04/06/18 19:20; Start 03/27/18 at 21 :00 Memantine (Namenda) 10 mg BID PO Last administered on 04/06/18 19:20; Start at 21:00 Quetiapine Fumarate (SEROquel) 25 mg HS PO Last administered on 03/31/18at 20:20 ; Start 03/27/18 at 21:00; Stop 03/31/18 at 21:00; Status DC Lidocaine HCl (Viscous Lidocaine) 5 ml QIDACHS SWSW Last administered on 08:02; Start 03/27/18 at 21:00; Stop 04/01/18 at 12:18; Status DC Lisinopril (Prinivil) 10 mg DAILY PO Last administered on 04/06/18at 07:48; Start 03/28/18 at 14:00 Olanzapine (ZyPREXA ZYDIS) 2.5 mg PRN Q2HR PRN PO ANXIETY / AGITATION Last administered on 04/03/18at 02:29; Start 03/28/18 at 17:00 Trazodone HCl (Desyrel) 50 mg PRN QHS PRN PO INSOMNIA, MAY REPEAT X1 Last administered on 04/02/18 19:13; Start 03/28/18 at 17:00 Nystatin (Nystop) 1 majo BID TP Last administered on 04/06/18 19:21; Start at 09:00 Quetiapine Fumarate (SEROquel) 12.5 mg TID@0900,1700,2100 PO Last administered on 04/06/18 19:21; Start 03/31/18 at 21:00 Mirtazapine (Remeron) 7.5 mg QHS PO Last administered on 04/06/18 19:20; Start 04/03/18 at 21:00 Vitamin D (Vitamin D3) 50,000 unit WEEKLY PO Last administered on 04/04/18 16: 13; Start 04/04/18 at 16:15 Active Scripts Active Reported Tramadol Hcl (Tramadol HCl) 50 Mg Tablet 50 Mg PO PRN Q6HRS PRN Seroquel (Quetiapine Fumarate) 25 Mg Tablet 25 Mg PO HS Namenda (Memantine Hcl) 10 Mg Tablet 10 Mg PO BID [viscous lidocain 2%] 5 Ml SWSP QIDACHS Melatonin 3 Mg Tablet 3 Mg PO HS Irbesartan 300 Mg Tablet 150 Mg PO DAILY Cymbalta (Duloxetine Hcl) 30 Mg Capsule.dr 30 Mg PO DAILY Atorvastatin Calcium 10 Mg Tablet 10 Mg PO QHS I have reviewed the current psychotropics carefully including drug interactions. Risk benefit ratio favors no change other than as noted in my dictated progress note. Diagnosis: Problems: (1) Dementia (2) Agitation (3) Anxiety disorder (4) Dementia, vascular, with delusions (5) Dementia, vascular, with depression (6) Dementia in Alzheimer's disease with depression (7) Dementia in Alzheimer's disease with delusions (8) Impulse control disorder DERICK LINARES MD Apr 06, 2018 22:32
[2018-04-07 05:38] VITALS: BP 127/83
[2018-04-07] MEDS: LISINOPRIL 10 MG TABLET PO SCH (08:51)
[2018-04-07] MEDS: DULoxetine HCL 30 MG CAPSULE.DR PO SCH (08:51)
[2018-04-07] MEDS: NYSTATIN TOPICAL POWDER 15GM BOTTLE. TP SCH ×2 (08:52→19:41)
[2018-04-07] MEDS: QUEtiapine 25 MG TABLET. PO SCH ×3 (08:52→19:41)
[2018-04-07] MEDS: MEMANTINE 10 MG TABLET. PO SCH ×2 (08:52→19:42)
[2018-04-07] MEDS: traMADol 50 MG TABLET PO PRN (11:24)
[2018-04-07 15:46] VITALS: BP 128/82
--- NOTE | 2018-04-07 16:52 | PN ---
DATE: 04/05/2018 PSYCHIATRIC PROGRESS NOTE SUBJECTIVE: This late entry 04/05/2018 covers elements not covered in my initial note. The patient slept 8-1/4 hours previous night, compliant with medication, remains in a Broda chair, confused, agitated in the evening. Swallow study will be done at the request of the family. MENTAL STATUS EXAM: Oriented to herself. Insight, judgment, recent and remote memory, attention, concentration, fund of knowledge poor, consistent with her diagnosis mentioned in my initial note. PLAN: No change from initial note. MAN Leonid LINARES MD DR: HADLEY/maria elena JOB#: [id number] / [id number]
--- NOTE | 2018-04-07 17:59 | PN ---
DATE: 04/06/2018 PSYCHIATRIC PROGRESS NOTE This late entry 04/06/2018 covers elements not covered in my initial note. SUBJECTIVE: I met with the patient in the evening. The patient slept 7-1/2 hours previous night. She remains confused, withdrawn. REVIEW OF SYSTEMS: Ambulation impaired, in Broda chair. No CV, , pulmonary, eye, ENT system symptoms on review. Reliability poor. MENTAL STATUS EXAM: Oriented to herself. Insight, judgment, recent and remote memory, attention, concentration, fund of knowledge poor, consistent with her diagnosis mentioned in my initial note. PLAN: No change from initial note. Maintain Cymbalta, melatonin, Seroquel, Namenda, trazodone, Remeron along with Zyprexa p.r.n. MAN Leonid LINARES MD DR: HADLEY/maria elena JOB#: [id number] / [id number]
[2018-04-07] MEDS: MIRTAZAPINE 7.5 MG TABLET. PO SCH (19:42)
[2018-04-07] MEDS: ATORVASTATIN CALCIUM 10 MG TABLET. PO SCH (19:42)
[2018-04-07] MEDS: MELATONIN 3 MG TABLET PO SCH (19:42)
--- NOTE | 2018-04-07 22:22 | PDOC ---
Exam Note: Eddie Note: Please also refer to the separate dictated note~for this date of service dictated separately.~Patient seen individually. Discussed the patient with Nursing staff reviewed the chart.~Reviewed interim history and current functioning. Reviewed vital signs,~Labs/ Radiology~and current medications noted below. Continue current treatment with the changes noted in the dictated addendum note Assessment: Vital Signs: Vital Signs Date Time Temp Pulse Resp B/P (MAP) Pulse Ox O2 Delivery O2 Flow Rate FiO2 04/07/18 15:46 97.4 81 16 128/82 (97) 97 04/07/18 11:24 Room Air I&O Intake and Output 04/07/18 07:01 Intake Total 1080 ml Balance 1080 ml Intake Oral 1080 ml Current Medications: Meds: Current Medications Trimethoprim/ Sulfamethoxazole (Bactrim Ds) 1 tab 1X ONCE PO Last administered on 03/27/18at 18:31; Start 03/27/18 at 18:00; Stop 03/28/18 at 14:01 ; Status DC Acetaminophen (Tylenol) 650 mg PRN Q6HRS PRN PO PAIN / TEMP; Start 03/27/18 at 18:15 Multi-Ingredient Ointment (Analgesic [place]) 1 majo PRN QID PRN TP MUSCLE PAIN; Start 03/27/18 at 18:15 Al Hydroxide/Mg Hydroxide (Mylanta Plus Xs) 15 ml PRN AFTMEALHC PRN PO DYSPEPSIA; Start 03/27/18 at 18:15 Magnesium Hydroxide (Milk Of Magnesia) 2,400 mg PRN QHS PRN PO CONSTIPATION Last administered on 04/06/18at 19:23; Start 03/27/18 at 18:15 Tramadol HCl (Ultram) 50 mg PRN Q6HRS PRN PO PAIN Last administered on at 11:24; Start 03/27/18 at 18:15 Atorvastatin Calcium (Lipitor) 10 mg QHS PO Last administered on 04/07/18at 19: 42; Start 03/27/18 at 21:00 Duloxetine HCl (Cymbalta) 30 mg DAILY PO Last administered on 04/07/18at 08:51; Start 03/28/18 at 09:00 Non-Formulary Medication (Irbesartan ) 150 mg DAILY PO ; Start 03/28/18 at 09:00 ; Stop 03/28/18 at 14:01; Status DC Melatonin 3 mg HS PO Last administered on 04/07/18 19:42; Start 03/27/18 at 21 :00 Memantine (Namenda) 10 mg BID PO Last administered on 04/07/18 19:42; Start at 21:00 Quetiapine Fumarate (SEROquel) 25 mg HS PO Last administered on 03/31/18 20:20 ; Start 03/27/18 at 21:00; Stop 03/31/18 at 21:00; Status DC Lidocaine HCl (Viscous Lidocaine) 5 ml QIDACHS SWSW Last administered on 08:02; Start 03/27/18 at 21:00; Stop 04/01/18 at 12:18; Status DC Lisinopril (Prinivil) 10 mg DAILY PO Last administered on 04/07/18 08:51; Start 03/28/18 at 14:00 Olanzapine (ZyPREXA ZYDIS) 2.5 mg PRN Q2HR PRN PO ANXIETY / AGITATION Last administered on 04/07/18 18:51; Start 03/28/18 at 17:00 Trazodone HCl (Desyrel) 50 mg PRN QHS PRN PO INSOMNIA, MAY REPEAT X1 Last administered on 04/02/18 19:13; Start 03/28/18 at 17:00 Nystatin (Nystop) 1 majo BID TP Last administered on 04/07/18 19:41; Start at 09:00 Quetiapine Fumarate (SEROquel) 12.5 mg TID@0900,1700,2100 PO Last administered on 04/07/18 19:41; Start 03/31/18 at 21:00 Mirtazapine (Remeron) 7.5 mg QHS PO Last administered on 04/07/18 19:42; Start 04/03/18 at 21:00 Vitamin D (Vitamin D3) 50,000 unit WEEKLY PO Last administered on 04/04/18 16: 13; Start 04/04/18 at 16:15 Active Scripts Active Reported Tramadol Hcl (Tramadol HCl) 50 Mg Tablet 50 Mg PO PRN Q6HRS PRN Seroquel (Quetiapine Fumarate) 25 Mg Tablet 25 Mg PO HS Namenda (Memantine Hcl) 10 Mg Tablet 10 Mg PO BID [viscous lidocain 2%] 5 Ml SWSP QIDACHS Melatonin 3 Mg Tablet 3 Mg PO HS Irbesartan 300 Mg Tablet 150 Mg PO DAILY Cymbalta (Duloxetine Hcl) 30 Mg Capsule.dr 30 Mg PO DAILY Atorvastatin Calcium 10 Mg Tablet 10 Mg PO QHS I have reviewed the current psychotropics carefully including drug interactions. Risk benefit ratio favors no change other than as noted in my dictated progress note. Diagnosis: Problems: (1) Dementia (2) Agitation (3) Anxiety disorder (4) Dementia, vascular, with delusions (5) Dementia, vascular, with depression (6) Dementia in Alzheimer's disease with depression (7) Dementia in Alzheimer's disease with delusions (8) Impulse control disorder DERICK LINARES MD Apr 07, 2018 22:22
[2018-04-08 06:19] VITALS: BP 177/94
[2018-04-08] MEDS: LISINOPRIL 10 MG TABLET PO SCH (06:53)
[2018-04-08] MEDS: MEMANTINE 10 MG TABLET. PO SCH ×2 (06:53→21:07)
[2018-04-08] MEDS: DULoxetine HCL 30 MG CAPSULE.DR PO SCH (06:53)
[2018-04-08] MEDS: QUEtiapine 25 MG TABLET. PO SCH ×3 (06:53→21:07)
[2018-04-08] MEDS: NYSTATIN TOPICAL POWDER 15GM BOTTLE. TP SCH ×2 (06:54→21:07)
[2018-04-08] MEDS: traMADol 50 MG TABLET PO PRN (16:13)
[2018-04-08 16:58] VITALS: BP 147/84
--- NOTE | 2018-04-08 20:51 | PN ---
DATE: 04/07/2018 This is a late entry for 04/07/2018 and covers elements not covered in my initial note. SUBJECTIVE: I met with the patient in the evening. The patient has been confused, disorganized, slept 7 hours previous night, quite anxious at times. REVIEW OF SYSTEMS: Ambulation impaired, in Broda chair. He complains of back pain, received Ultram at 12:30 p.m. No CV, , pulmonary, eye system symptoms on review. MENTAL STATUS EXAM: Oriented to herself. Insight, judgment, recent and remote memory, attention, concentration, fund of knowledge poor, consistent with her diagnosis. She gets quite disturbed around nighttime and nursing staff wonders whether it is due to pain. We will defer to Dr. Goss to see if Ultram could be added at night as well. LABORATORY DATA: Reviewed. IMPRESSION: Major neurocognitive disorder, Alzheimer, vascular with delusion, depression, behavioral disturbance; anxiety disorder, unspecified; impulse control disorder, unspecified. Rest unchanged from initial note. PLAN: No change from initial note other than what is noted above. MAN Leonid LINARES MD DR: HADLEY/maria elena JOB#: [id number] / [id number]
[2018-04-08] MEDS: traMADol 50 MG TABLET PO SCH (21:00)
[2018-04-08] MEDS: MELATONIN 3 MG TABLET PO SCH (21:06)
[2018-04-08] MEDS: MIRTAZAPINE 7.5 MG TABLET. PO SCH (21:06)
[2018-04-08] MEDS: ATORVASTATIN CALCIUM 10 MG TABLET. PO SCH (21:07)
--- NOTE | 2018-04-08 22:36 | PDOC ---
Exam Note: Eddie Note: Please also refer to the separate dictated note~for this date of service dictated separately.~Patient seen individually. Discussed the patient with Nursing staff reviewed the chart.~Reviewed interim history and current functioning. Reviewed vital signs,~Labs/ Radiology~and current medications noted below. Continue current treatment with the changes noted in the dictated addendum note Assessment: Vital Signs: Vital Signs Date Time Temp Pulse Resp B/P (MAP) Pulse Ox O2 Delivery O2 Flow Rate FiO2 04/08/18 17:36 97 Room Air 04/08/18 16:58 97.9 87 18 147/84 (105) I&O Intake and Output 04/08/18 07:01 Intake Total 660 ml Balance 660 ml Intake Oral 660 ml # Bowel Movements 1 Current Medications: Meds: Current Medications Trimethoprim/ Sulfamethoxazole (Bactrim Ds) 1 tab 1X ONCE PO Last administered on 03/27/18at 18:31; Start 03/27/18 at 18:00; Stop 03/28/18 at 14:01 ; Status DC Acetaminophen (Tylenol) 650 mg PRN Q6HRS PRN PO PAIN / TEMP; Start 03/27/18 at 18:15 Multi-Ingredient Ointment (Analgesic [place]) 1 majo PRN QID PRN TP MUSCLE PAIN; Start 03/27/18 at 18:15 Al Hydroxide/Mg Hydroxide (Mylanta Plus Xs) 15 ml PRN AFTMEALHC PRN PO DYSPEPSIA; Start 03/27/18 at 18:15 Magnesium Hydroxide (Milk Of Magnesia) 2,400 mg PRN QHS PRN PO CONSTIPATION Last administered on 04/06/18at 19:23; Start 03/27/18 at 18:15 Tramadol HCl (Ultram) 50 mg PRN Q6HRS PRN PO PAIN Last administered on at 16:13; Start 03/27/18 at 18:15 Atorvastatin Calcium (Lipitor) 10 mg QHS PO Last administered on 04/08/18at 21: 07; Start 03/27/18 at 21:00 Duloxetine HCl (Cymbalta) 30 mg DAILY PO Last administered on 04/08/18at 06:53; Start 03/28/18 at 09:00; Stop 04/08/18 at 16:56; Status DC Non-Formulary Medication (Irbesartan ) 150 mg DAILY PO ; Start 03/28/18 at 09:00 ; Stop 03/28/18 at 14:01; Status DC Melatonin 3 mg HS PO Last administered on 04/08/18 21:06; Start 03/27/18 at 21 :00 Memantine (Namenda) 10 mg BID PO Last administered on 04/08/18 21:07; Start at 21:00 Quetiapine Fumarate (SEROquel) 25 mg HS PO Last administered on 03/31/18 20:20 ; Start 03/27/18 at 21:00; Stop 03/31/18 at 21:00; Status DC Lidocaine HCl (Viscous Lidocaine) 5 ml QIDACHS SWSW Last administered on 08:02; Start 03/27/18 at 21:00; Stop 04/01/18 at 12:18; Status DC Lisinopril (Prinivil) 10 mg DAILY PO Last administered on 04/08/18 06:53; Start 03/28/18 at 14:00 Olanzapine (ZyPREXA ZYDIS) 2.5 mg PRN Q2HR PRN PO ANXIETY / AGITATION Last administered on 04/07/18 18:51; Start 03/28/18 at 17:00 Trazodone HCl (Desyrel) 50 mg PRN QHS PRN PO INSOMNIA, MAY REPEAT X1 Last administered on 04/02/18at 19:13; Start 03/28/18 at 17:00 Nystatin (Nystop) 1 majo BID TP Last administered on 04/08/18 21:07; Start at 09:00 Quetiapine Fumarate (SEROquel) 12.5 mg TID@0900,1700,2100 PO Last administered on 04/08/18 21:07; Start 03/31/18 at 21:00 Mirtazapine (Remeron) 7.5 mg QHS PO Last administered on 04/08/18 21:06; Start 04/03/18 at 21:00 Vitamin D (Vitamin D3) 50,000 unit WEEKLY PO Last administered on 04/04/18 16: 13; Start 04/04/18 at 16:15 Duloxetine HCl (Cymbalta) 40 mg DAILY PO ; Start 1/24/19 at 09:00 Tramadol HCl (Ultram) 50 mg QHS PO ; Start 04/08/18 at 21:00 Active Scripts Active Reported Tramadol Hcl (Tramadol HCl) 50 Mg Tablet 50 Mg PO PRN Q6HRS PRN Seroquel (Quetiapine Fumarate) 25 Mg Tablet 25 Mg PO HS Namenda (Memantine Hcl) 10 Mg Tablet 10 Mg PO BID [viscous lidocain 2%] 5 Ml SWSP QIDACHS Melatonin 3 Mg Tablet 3 Mg PO HS Irbesartan 300 Mg Tablet 150 Mg PO DAILY Cymbalta (Duloxetine Hcl) 30 Mg Capsule.dr 30 Mg PO DAILY Atorvastatin Calcium 10 Mg Tablet 10 Mg PO QHS I have reviewed the current psychotropics carefully including drug interactions. Risk benefit ratio favors no change other than as noted in my dictated progress note. Diagnosis: Problems: (1) Dementia (2) Agitation (3) Anxiety disorder (4) Dementia, vascular, with delusions (5) Dementia, vascular, with depression (6) Dementia in Alzheimer's disease with depression (7) Dementia in Alzheimer's disease with delusions (8) Impulse control disorder DERICK LINARES MD Apr 08, 2018 22:36
[2018-04-09 05:34] VITALS: BP 123/82
[2018-04-09] MEDS: QUEtiapine 25 MG TABLET. PO SCH ×3 (08:25→20:06)
[2018-04-09] MEDS: MEMANTINE 10 MG TABLET. PO SCH ×2 (08:25→20:05)
[2018-04-09] MEDS: LISINOPRIL 10 MG TABLET PO SCH (08:25)
[2018-04-09] MEDS: DULoxetine HCL 20 MG CAPSULE.DR PO SCH (08:27)
[2018-04-09] MEDS: NYSTATIN TOPICAL POWDER 15GM BOTTLE. TP SCH ×2 (08:28→20:06)
[2018-04-09 10:01] LABS: BASO # 0.1 x10^3/uL (0.0-0.2); BASO % 1 % (0-3); EOS # 0.2 x10^3/uL (0.0-0.7); EOS % 2 % (0-3); HEMATOCRIT 38.7 % (36.0-47.0); HEMOGLOBIN 12.8 g/dL (12.0-15.5); LYMPH # 2.2 x10^3/uL (1.0-4.8); LYMPH % 25 % (24-48); MEAN CORPUSCULAR HEMOGLOBIN 31 pg (25-35); MEAN CORPUSCULAR HGB CONC 33 g/dL (31-37); MEAN CORPUSCULAR VOLUME 94 fL (79-100); MONO # 0.7 x10^3/uL (0.0-1.1); MONO % 8 % (0-9); NEUT # 5.5 x10^3uL (1.8-7.7); NEUT % 63 % (31-73); PLATELET COUNT 181 x10^3/uL (140-400); RED BLOOD COUNT 4.13 x10^6/uL (3.50-5.40); RED CELL DISTRIBUTION WIDTH 13.2 % (11.5-14.5); WHITE BLOOD COUNT 8.7 x10^3/uL (4.0-11.0)
[2018-04-09 10:13] LABS: ALBUMIN 3.2 g/dL (3.4-5.0); ALBUMIN/GLOBULIN RATIO 0.9 (1.0-1.7); CALCIUM 9.6 mg/dL (8.5-10.1); CREATININE 1.5 mg/dL (0.6-1.0); GFR 33.2; POTASSIUM 3.9 mmol/L (3.5-5.1); TOTAL BILIRUBIN 0.4 mg/dL (0.2-1.0); TOTAL PROTEIN 6.9 g/dL (6.4-8.2)
[2018-04-09] MEDS: traMADol 50 MG TABLET PO PRN (11:52)
[2018-04-09 16:39] VITALS: BP 152/76
[2018-04-09] MEDS: ATORVASTATIN CALCIUM 10 MG TABLET. PO SCH (20:05)
[2018-04-09] MEDS: MIRTAZAPINE 7.5 MG TABLET. PO SCH (20:05)
[2018-04-09] MEDS: MELATONIN 3 MG TABLET PO SCH (20:06)
[2018-04-09] MEDS: traMADol 50 MG TABLET PO SCH (20:06)
--- NOTE | 2018-04-09 22:48 | PDOC ---
Exam Note: Eddie Note: Please also refer to the separate dictated note~for this date of service dictated separately.~Patient seen individually. Discussed the patient with Nursing staff reviewed the chart.~Reviewed interim history and current functioning. Reviewed vital signs,~Labs/ Radiology~and current medications noted below. Continue current treatment with the changes noted in the dictated addendum note Assessment: Vital Signs: Vital Signs Date Time Temp Pulse Resp B/P (MAP) Pulse Ox O2 Delivery O2 Flow Rate FiO2 04/09/18 20:06 Room Air 04/09/18 16:39 97.2 76 18 152/76 (101) 97 I&O Intake and Output 04/09/18 07:01 Intake Total 380 ml Balance 380 ml Intake Oral 380 ml # Voids 1 Labs: Laboratory Tests Test 04/09/18 09:50 White Blood Count 8.7 x10^3/uL (4.0-11.0) Red Blood Count 4.13 x10^6/uL (3.50-5.40) Hemoglobin 12.8 g/dL (12.0-15.5) Hematocrit 38.7 % (36.0-47.0) Mean Corpuscular Volume 94 fL (79-100) Mean Corpuscular Hemoglobin 31 pg (25-35) Mean Corpuscular Hemoglobin Concent 33 g/dL (31-37) Red Cell Distribution Width 13.2 % (11.5-14.5) Platelet Count 181 x10^3/uL (140-400) Neutrophils (%) (Auto) 63 % (31-73) Lymphocytes (%) (Auto) 25 % (24-48) Monocytes (%) (Auto) 8 % (0-9) Eosinophils (%) (Auto) 2 % (0-3) Basophils (%) (Auto) 1 % (0-3) Neutrophils # (Auto) 5.5 x10^3uL (1.8-7.7) Lymphocytes # (Auto) 2.2 x10^3/uL (1.0-4.8) Monocytes # (Auto) 0.7 x10^3/uL (0.0-1.1) Eosinophils # (Auto) 0.2 x10^3/uL (0.0-0.7) Basophils # (Auto) 0.1 x10^3/uL (0.0-0.2) Sodium Level 144 mmol/L (136-145) Potassium Level 3.9 mmol/L (3.5-5.1) Chloride Level 104 mmol/L (98-107) Carbon Dioxide Level 32 mmol/L (21-32) Anion Gap 8 (6-14) Blood Urea Nitrogen 50 mg/dL (7-20) H Creatinine 1.5 mg/dL (0.6-1.0) H Estimated GFR (Cockcroft-Gault) 33.2 BUN/Creatinine Ratio 33 (6-20) H Glucose Level 123 mg/dL (70-99) H Calcium Level 9.6 mg/dL (8.5-10.1) Total Bilirubin 0.4 mg/dL (0.2-1.0) Aspartate Amino Transferase (AST) 22 U/L (15-37) Alanine Aminotransferase (ALT) 29 U/L (14-59) Alkaline Phosphatase 58 U/L (46-116) Total Protein 6.9 g/dL (6.4-8.2) Albumin 3.2 g/dL (3.4-5.0) L Albumin/Globulin Ratio 0.9 (1.0-1.7) L Current Medications: Meds: Current Medications Trimethoprim/ Sulfamethoxazole (Bactrim Ds) 1 tab 1X ONCE PO Last administered on 03/27/18at 18:31; Start 03/27/18 at 18:00; Stop 03/28/18 at 14:01 ; Status DC Acetaminophen (Tylenol) 650 mg PRN Q6HRS PRN PO PAIN / TEMP; Start 03/27/18 at 18:15 Multi-Ingredient Ointment (Analgesic [place]) 1 majo PRN QID PRN TP MUSCLE PAIN; Start 03/27/18 at 18:15 Al Hydroxide/Mg Hydroxide (Mylanta Plus Xs) 15 ml PRN AFTMEALHC PRN PO DYSPEPSIA; Start 03/27/18 at 18:15 Magnesium Hydroxide (Milk Of Magnesia) 2,400 mg PRN QHS PRN PO CONSTIPATION Last administered on 04/06/18at 19:23; Start 03/27/18 at 18:15 Tramadol HCl (Ultram) 50 mg PRN Q6HRS PRN PO PAIN Last administered on at 11:52; Start 03/27/18 at 18:15 Atorvastatin Calcium (Lipitor) 10 mg QHS PO Last administered on 04/09/18 20: 05; Start 03/27/18 at 21:00 Duloxetine HCl (Cymbalta) 30 mg DAILY PO Last administered on 04/08/18at 06:53; Start 03/28/18 at 09:00; Stop 04/08/18 at 16:56; Status DC Non-Formulary Medication (Irbesartan ) 150 mg DAILY PO ; Start 03/28/18 at 09:00 ; Stop 03/28/18 at 14:01; Status DC Melatonin 3 mg HS PO Last administered on 04/09/18 20:06; Start 03/27/18 at 21 :00 Memantine (Namenda) 10 mg BID PO Last administered on 04/09/18 20:05; Start at 21:00 Quetiapine Fumarate (SEROquel) 25 mg HS PO Last administered on 03/31/18 20:20 ; Start 03/27/18 at 21:00; Stop 03/31/18 at 21:00; Status DC Lidocaine HCl (Viscous Lidocaine) 5 ml QIDACHS SWSW Last administered on at 08:02; Start 03/27/18 at 21:00; Stop 04/01/18 at 12:18; Status DC Lisinopril (Prinivil) 10 mg DAILY PO Last administered on 04/09/18 08:25; Start 03/28/18 at 14:00 Olanzapine (ZyPREXA ZYDIS) 2.5 mg PRN Q2HR PRN PO ANXIETY / AGITATION Last administered on 04/07/18at 18:51; Start 03/28/18 at 17:00 Trazodone HCl (Desyrel) 50 mg PRN QHS PRN PO INSOMNIA, MAY REPEAT X1 Last administered on 04/02/18 19:13; Start 03/28/18 at 17:00 Nystatin (Nystop) 1 majo BID TP Last administered on 04/09/18 20:06; Start at 09:00 Quetiapine Fumarate (SEROquel) 12.5 mg TID@0900,1700,2100 PO Last administered on 04/09/18 20:06; Start 03/31/18 at 21:00 Mirtazapine (Remeron) 7.5 mg QHS PO Last administered on 04/09/18at 20:05; Start 04/03/18 at 21:00 Vitamin D (Vitamin D3) 50,000 unit WEEKLY PO Last administered on 04/04/18at 16: 13; Start 04/04/18 at 16:15 Duloxetine HCl (Cymbalta) 40 mg DAILY PO Last administered on 04/09/18at 08:27; Start 04/09/18 at 09:00 Tramadol HCl (Ultram) 50 mg QHS PO Last administered on 04/09/18at 20:06; Start 04/08/18 at 21:00 Active Scripts Active Reported Tramadol Hcl (Tramadol HCl) 50 Mg Tablet 50 Mg PO PRN Q6HRS PRN Seroquel (Quetiapine Fumarate) 25 Mg Tablet 25 Mg PO HS Namenda (Memantine Hcl) 10 Mg Tablet 10 Mg PO BID [viscous lidocain 2%] 5 Ml SWSP QIDACHS Melatonin 3 Mg Tablet 3 Mg PO HS Irbesartan 300 Mg Tablet 150 Mg PO DAILY Cymbalta (Duloxetine Hcl) 30 Mg Capsule.dr 30 Mg PO DAILY Atorvastatin Calcium 10 Mg Tablet 10 Mg PO QHS I have reviewed the current psychotropics carefully including drug interactions. Risk benefit ratio favors no change other than as noted in my dictated progress note. Diagnosis: Problems: (1) Dementia (2) Agitation (3) Anxiety disorder (4) Dementia, vascular, with delusions (5) Dementia, vascular, with depression (6) Dementia in Alzheimer's disease with depression (7) Dementia in Alzheimer's disease with delusions (8) Impulse control disorder DERICK LINARES MD Apr 09, 2018 22:48
[2018-04-10 05:59] VITALS: BP 160/94
[2018-04-10] MEDS: DULoxetine HCL 20 MG CAPSULE.DR PO SCH (08:12)
[2018-04-10] MEDS: LISINOPRIL 10 MG TABLET PO SCH (08:12)
[2018-04-10] MEDS: MEMANTINE 10 MG TABLET. PO SCH ×2 (08:12→19:43)
[2018-04-10] MEDS: QUEtiapine 25 MG TABLET. PO SCH ×3 (08:12→19:43)
[2018-04-10] MEDS: NYSTATIN TOPICAL POWDER 15GM BOTTLE. TP SCH ×2 (08:13→19:44)
--- NOTE | 2018-04-10 15:53 | PN ---
DATE: 04/08/2018 PSYCHIATRIC PROGRESS NOTE This late entry 04/08/2018 covers elements, not covered in my initial note. SUBJECTIVE: I met with the patient in the evening. The patient slept 7-1/4 hours previous night. She was tired in the morning, more awake around 2:00 p.m., calling out for gym. REVIEW OF SYSTEMS: Positive for back pain, impaired ambulation, in Broda chair, received Ultram in the morning. No CV, , pulmonary, eye system symptoms on review. MENTAL STATUS EXAM: Oriented to herself. Insight, judgment, recent and remote memory, attention, concentration, fund of knowledge poor, consistent with her diagnosis. LABORATORY DATA: Reviewed. IMPRESSION: Major neurocognitive disorder, Alzheimer, vascular with delusion, depression, behavioral disturbance; anxiety disorder, unspecified. Rest unchanged. PLAN: Increase Cymbalta from 30 mg a day to 40 mg a day. Continue rest, unchanged for now. MAN Leonid LINARES MD DR: HADLEY/maria elena JOB#: [id number] / [id number]
[2018-04-10 16:49] VITALS: BP 110/92
[2018-04-10] MEDS: MELATONIN 3 MG TABLET PO SCH (19:42)
[2018-04-10] MEDS: ATORVASTATIN CALCIUM 10 MG TABLET. PO SCH (19:42)
[2018-04-10] MEDS: MIRTAZAPINE 7.5 MG TABLET. PO SCH (19:43)
[2018-04-10] MEDS: traMADol 50 MG TABLET PO SCH (19:43)
--- NOTE | 2018-04-10 20:17 | PN ---
DATE: 04/09/2018 PSYCHIATRIC PROGRESS NOTE This late entry 04/09/2018 covers elements not covered in my initial note. SUBJECTIVE: I met with the patient in the evening. The patient was staffed at a treatment team meeting with the entire team in the morning. The patient slept 7 hours previous evening. Appetite is 50%. She gets somewhat irritable, labile at times, yells out, but less so than before. It seems during visits that she gets more irritative when her is around per nursing report. REVIEW OF SYSTEMS: Ambulation impaired, in Broda chair. No CV, , pulmonary, eye, ENT system symptoms on review. Reliability poor. MENTAL STATUS EXAM: Oriented to herself. Insight, judgment, recent and remote memory, attention, concentration, fund of knowledge poor, consistent with her diagnosis mentioned in my initial note. IMPRESSION: Major neurocognitive disorder, Alzheimer, vascular with delusion, depression, behavioral disturbance. Rest unchanged. PLAN: No change from initial note, may need to adjust Seroquel gradually depending on her progress. MAN Leonid LINARES MD DR: HADLEY/maria elena JOB#: [id number] / [id number]
--- NOTE | 2018-04-10 22:38 | PDOC ---
Exam Note: Eddie Note: Please also refer to the separate dictated note~for this date of service dictated separately.~Patient seen individually. Discussed the patient with Nursing staff reviewed the chart.~Reviewed interim history and current functioning. Reviewed vital signs,~Labs/ Radiology~and current medications noted below. Continue current treatment with the changes noted in the dictated addendum note Assessment: Vital Signs: Vital Signs Date Time Temp Pulse Resp B/P (MAP) Pulse Ox O2 Delivery O2 Flow Rate FiO2 04/10/18 20:52 20 95 04/10/18 16:49 97.1 94 110/92 (98) Room Air I&O Intake and Output 04/10/18 07:01 Intake Total 520 ml Balance 520 ml Intake Oral 520 ml Current Medications: Meds: Current Medications Trimethoprim/ Sulfamethoxazole (Bactrim Ds) 1 tab 1X ONCE PO Last administered on 03/27/18at 18:31; Start 03/27/18 at 18:00; Stop 03/28/18 at 14:01 ; Status DC Acetaminophen (Tylenol) 650 mg PRN Q6HRS PRN PO PAIN / TEMP; Start 03/27/18 at 18:15 Multi-Ingredient Ointment (Analgesic [place]) 1 majo PRN QID PRN TP MUSCLE PAIN; Start 03/27/18 at 18:15 Al Hydroxide/Mg Hydroxide (Mylanta Plus Xs) 15 ml PRN AFTMEALHC PRN PO DYSPEPSIA; Start 03/27/18 at 18:15 Magnesium Hydroxide (Milk Of Magnesia) 2,400 mg PRN QHS PRN PO CONSTIPATION Last administered on 04/06/18at 19:23; Start 03/27/18 at 18:15 Tramadol HCl (Ultram) 50 mg PRN Q6HRS PRN PO PAIN Last administered on at 11:52; Start 03/27/18 at 18:15 Atorvastatin Calcium (Lipitor) 10 mg QHS PO Last administered on 04/10/18at 19: 42; Start 03/27/18 at 21:00 Duloxetine HCl (Cymbalta) 30 mg DAILY PO Last administered on 04/08/18at 06:53; Start 03/28/18 at 09:00; Stop 04/08/18 at 16:56; Status DC Non-Formulary Medication (Irbesartan ) 150 mg DAILY PO ; Start 03/28/18 at 09:00 ; Stop 03/28/18 at 14:01; Status DC Melatonin 3 mg HS PO Last administered on 04/10/18 19:42; Start 03/27/18 at 21 :00 Memantine (Namenda) 10 mg BID PO Last administered on 04/10/18 19:43; Start at 21:00 Quetiapine Fumarate (SEROquel) 25 mg HS PO Last administered on 03/31/18 20:20 ; Start 03/27/18 at 21:00; Stop 03/31/18 at 21:00; Status DC Lidocaine HCl (Viscous Lidocaine) 5 ml QIDACHS SWSW Last administered on 08:02; Start 03/27/18 at 21:00; Stop 04/01/18 at 12:18; Status DC Lisinopril (Prinivil) 10 mg DAILY PO Last administered on 04/10/18 08:12; Start 03/28/18 at 14:00 Olanzapine (ZyPREXA ZYDIS) 2.5 mg PRN Q2HR PRN PO ANXIETY / AGITATION Last administered on 04/10/18 09:55; Start 03/28/18 at 17:00 Trazodone HCl (Desyrel) 50 mg PRN QHS PRN PO INSOMNIA, MAY REPEAT X1 Last administered on 04/02/18 19:13; Start 03/28/18 at 17:00 Nystatin (Nystop) 1 majo BID TP Last administered on 04/10/18 19:44; Start at 09:00 Quetiapine Fumarate (SEROquel) 12.5 mg TID@0900,1700,2100 PO Last administered on 04/10/18 19:43; Start 03/31/18 at 21:00 Mirtazapine (Remeron) 7.5 mg QHS PO Last administered on 04/10/18 19:43; Start 04/03/18 at 21:00 Vitamin D (Vitamin D3) 50,000 unit WEEKLY PO Last administered on 04/04/18 16: 13; Start 04/04/18 at 16:15 Duloxetine HCl (Cymbalta) 40 mg DAILY PO Last administered on 04/10/18 08:12; Start 04/09/18 at 09:00 Tramadol HCl (Ultram) 50 mg QHS PO Last administered on 04/10/18at 19:43; Start 04/08/18 at 21:00 Active Scripts Active Reported Tramadol Hcl (Tramadol HCl) 50 Mg Tablet 50 Mg PO PRN Q6HRS PRN Seroquel (Quetiapine Fumarate) 25 Mg Tablet 25 Mg PO HS Namenda (Memantine Hcl) 10 Mg Tablet 10 Mg PO BID [viscous lidocain 2%] 5 Ml SWSP QIDACHS Melatonin 3 Mg Tablet 3 Mg PO HS Irbesartan 300 Mg Tablet 150 Mg PO DAILY Cymbalta (Duloxetine Hcl) 30 Mg Capsule.dr 30 Mg PO DAILY Atorvastatin Calcium 10 Mg Tablet 10 Mg PO QHS I have reviewed the current psychotropics carefully including drug interactions. Risk benefit ratio favors no change other than as noted in my dictated progress note. Diagnosis: Problems: (1) Dementia (2) Agitation (3) Anxiety disorder (4) Dementia, vascular, with delusions (5) Dementia, vascular, with depression (6) Dementia in Alzheimer's disease with depression (7) Dementia in Alzheimer's disease with delusions (8) Impulse control disorder DERICK LINARES MD Apr 10, 2018 22:38
[2018-04-11 06:27] VITALS: BP 136/85
[2018-04-11] MEDS: LISINOPRIL 10 MG TABLET PO SCH (08:13)
[2018-04-11] MEDS: MEMANTINE 10 MG TABLET. PO SCH ×2 (08:13→19:38)
[2018-04-11] MEDS: DULoxetine HCL 20 MG CAPSULE.DR PO SCH (08:13)
[2018-04-11] MEDS: QUEtiapine 25 MG TABLET. PO SCH ×3 (08:13→19:39)
[2018-04-11] MEDS: CHOLECALCIFEROL (VITAMIN D3) 50,000 UNIT CAPSULE PO SCH (09:47)
[2018-04-11] MEDS: NYSTATIN TOPICAL POWDER 15GM BOTTLE. TP SCH ×2 (09:47→19:39)
[2018-04-11 15:50] VITALS: BP 108/71
[2018-04-11] MEDS: MIRTAZAPINE 7.5 MG TABLET. PO SCH (19:38)
[2018-04-11] MEDS: MELATONIN 3 MG TABLET PO SCH (19:38)
[2018-04-11] MEDS: ATORVASTATIN CALCIUM 10 MG TABLET. PO SCH (19:38)
[2018-04-11] MEDS: traMADol 50 MG TABLET PO SCH (19:39)
--- NOTE | 2018-04-11 22:16 | PDOC ---
Exam Note: Eddie Note: Please also refer to the separate dictated note~for this date of service dictated separately.~Patient seen individually. Discussed the patient with Nursing staff reviewed the chart.~Reviewed interim history and current functioning. Reviewed vital signs,~Labs/ Radiology~and current medications noted below. Continue current treatment with the changes noted in the dictated addendum note Assessment: Vital Signs: Vital Signs Date Time Temp Pulse Resp B/P (MAP) Pulse Ox O2 Delivery O2 Flow Rate FiO2 04/11/18 20:39 98 04/11/18 15:50 97.0 87 20 108/71 (83) 04/10/18 16:49 Room Air I&O Intake and Output 04/11/18 07:01 Intake Total 780 ml Balance 780 ml Intake Oral 780 ml # Voids 1 Current Medications: Meds: Current Medications Trimethoprim/ Sulfamethoxazole (Bactrim Ds) 1 tab 1X ONCE PO Last administered on 03/27/18at 18:31; Start 03/27/18 at 18:00; Stop 03/28/18 at 14:01 ; Status DC Acetaminophen (Tylenol) 650 mg PRN Q6HRS PRN PO PAIN / TEMP; Start 03/27/18 at 18:15 Multi-Ingredient Ointment (Analgesic [place]) 1 majo PRN QID PRN TP MUSCLE PAIN; Start 03/27/18 at 18:15 Al Hydroxide/Mg Hydroxide (Mylanta Plus Xs) 15 ml PRN AFTMEALHC PRN PO DYSPEPSIA; Start 03/27/18 at 18:15 Magnesium Hydroxide (Milk Of Magnesia) 2,400 mg PRN QHS PRN PO CONSTIPATION Last administered on 04/06/18at 19:23; Start 03/27/18 at 18:15 Tramadol HCl (Ultram) 50 mg PRN Q6HRS PRN PO PAIN Last administered on at 11:52; Start 03/27/18 at 18:15 Atorvastatin Calcium (Lipitor) 10 mg QHS PO Last administered on 04/11/18at 19: 38; Start 03/27/18 at 21:00 Duloxetine HCl (Cymbalta) 30 mg DAILY PO Last administered on 04/08/18at 06:53; Start 03/28/18 at 09:00; Stop 04/08/18 at 16:56; Status DC Non-Formulary Medication (Irbesartan ) 150 mg DAILY PO ; Start 03/28/18 at 09:00 ; Stop 03/28/18 at 14:01; Status DC Melatonin 3 mg HS PO Last administered on 04/11/18 19:38; Start 03/27/18 at 21 :00 Memantine (Namenda) 10 mg BID PO Last administered on 04/11/18 19:38; Start at 21:00 Quetiapine Fumarate (SEROquel) 25 mg HS PO Last administered on 03/31/18 20:20 ; Start 03/27/18 at 21:00; Stop 03/31/18 at 21:00; Status DC Lidocaine HCl (Viscous Lidocaine) 5 ml QIDACHS SWSW Last administered on 08:02; Start 03/27/18 at 21:00; Stop 04/01/18 at 12:18; Status DC Lisinopril (Prinivil) 10 mg DAILY PO Last administered on 04/11/18 08:13; Start 03/28/18 at 14:00 Olanzapine (ZyPREXA ZYDIS) 2.5 mg PRN Q2HR PRN PO ANXIETY / AGITATION Last administered on 04/11/18 17:58; Start 03/28/18 at 17:00 Trazodone HCl (Desyrel) 50 mg PRN QHS PRN PO INSOMNIA, MAY REPEAT X1 Last administered on 04/02/18 19:13; Start 03/28/18 at 17:00 Nystatin (Nystop) 1 majo BID TP Last administered on 04/11/18 19:39; Start at 09:00 Quetiapine Fumarate (SEROquel) 12.5 mg TID@0900,1700,2100 PO Last administered on 04/11/18 19:39; Start 03/31/18 at 21:00 Mirtazapine (Remeron) 7.5 mg QHS PO Last administered on 04/11/18 19:38; Start 04/03/18 at 21:00 Vitamin D (Vitamin D3) 50,000 unit WEEKLY PO Last administered on 04/11/18at 09: 47; Start 04/04/18 at 16:15 Duloxetine HCl (Cymbalta) 40 mg DAILY PO Last administered on 04/11/18at 08:13; Start 04/09/18 at 09:00 Tramadol HCl (Ultram) 50 mg QHS PO Last administered on 04/11/18at 19:39; Start 04/08/18 at 21:00 Active Scripts Active Reported Tramadol Hcl (Tramadol HCl) 50 Mg Tablet 50 Mg PO PRN Q6HRS PRN Seroquel (Quetiapine Fumarate) 25 Mg Tablet 25 Mg PO HS Namenda (Memantine Hcl) 10 Mg Tablet 10 Mg PO BID [viscous lidocain 2%] 5 Ml SWSP QIDACHS Melatonin 3 Mg Tablet 3 Mg PO HS Irbesartan 300 Mg Tablet 150 Mg PO DAILY Cymbalta (Duloxetine Hcl) 30 Mg Capsule.dr 30 Mg PO DAILY Atorvastatin Calcium 10 Mg Tablet 10 Mg PO QHS I have reviewed the current psychotropics carefully including drug interactions. Risk benefit ratio favors no change other than as noted in my dictated progress note. Diagnosis: Problems: (1) Dementia (2) Agitation (3) Anxiety disorder (4) Dementia, vascular, with delusions (5) Dementia, vascular, with depression (6) Dementia in Alzheimer's disease with depression (7) Dementia in Alzheimer's disease with delusions (8) Impulse control disorder DERICK LINARES MD Apr 11, 2018 22:16
--- NOTE | 2018-04-12 05:04 | PN ---
DATE: 04/10/2018 PSYCHIATRIC PROGRESS NOTE This is a late entry 04/10/2018, covers elements not covered in my initial note. SUBJECTIVE: I met with the patient in the evening. Per nursing report, the patient slept 8 hours previous night, was walking earlier in the day room, anxious around lunchtime. REVIEW OF SYSTEMS: Ambulation impaired, in Broda chair. No CV, , pulmonary, eye, ENT system symptoms on review. Reliability poor. MENTAL STATUS EXAM: Oriented to herself. Insight, judgment, recent and remote memory, attention, concentration, fund of knowledge poor, consistent with her diagnosis mentioned in my initial note. PLAN: No change from initial note. MAN Leonid LINARES MD DR: HADLEY/maria elena JOB#: [id number] / [id number]
[2018-04-12 05:54] VITALS: BP 159/81
[2018-04-12] MEDS: DULoxetine HCL 20 MG CAPSULE.DR PO SCH (07:49)
[2018-04-12] MEDS: QUEtiapine 25 MG TABLET. PO SCH ×3 (07:49→20:08)
[2018-04-12] MEDS: MEMANTINE 10 MG TABLET. PO SCH ×2 (07:49→20:06)
[2018-04-12] MEDS: LISINOPRIL 10 MG TABLET PO SCH (07:49)
[2018-04-12] MEDS: NYSTATIN TOPICAL POWDER 15GM BOTTLE. TP SCH ×2 (08:05→21:42)
[2018-04-12 08:16] LABS: BASO # 0.1 x10^3/uL (0.0-0.2); BASO % 1 % (0-3); EOS # 0.2 x10^3/uL (0.0-0.7); EOS % 3 % (0-3); HEMATOCRIT 40.4 % (36.0-47.0); HEMOGLOBIN 13.3 g/dL (12.0-15.5); LYMPH # 2.4 x10^3/uL (1.0-4.8); LYMPH % 30 % (24-48); MEAN CORPUSCULAR HEMOGLOBIN 31 pg (25-35); MEAN CORPUSCULAR HGB CONC 33 g/dL (31-37); MEAN CORPUSCULAR VOLUME 95 fL (79-100); MONO # 0.8 x10^3/uL (0.0-1.1); MONO % 10 % (0-9); NEUT # 4.7 x10^3uL (1.8-7.7); NEUT % 57 % (31-73); PLATELET COUNT 181 x10^3/uL (140-400); RED BLOOD COUNT 4.26 x10^6/uL (3.50-5.40); RED CELL DISTRIBUTION WIDTH 12.7 % (11.5-14.5); WHITE BLOOD COUNT 8.3 x10^3/uL (4.0-11.0)
[2018-04-12 08:36] LABS: ALBUMIN 3.2 g/dL (3.4-5.0); ALBUMIN/GLOBULIN RATIO 0.9 (1.0-1.7); CALCIUM 9.7 mg/dL (8.5-10.1); CREATININE 1.5 mg/dL (0.6-1.0); GFR 33.2; TOTAL BILIRUBIN 0.5 mg/dL (0.2-1.0); TOTAL PROTEIN 6.9 g/dL (6.4-8.2)
[2018-04-12] MEDS: traMADol 50 MG TABLET PO PRN (14:49)
[2018-04-12] MEDS: MAGNESIUM HYDROXIDE 2,400 MG/30 ML ORAL.SUSP. PO PRN (14:50)
[2018-04-12 16:12] VITALS: BP 138/84
[2018-04-12] MEDS: MIRTAZAPINE 7.5 MG TABLET. PO SCH (20:06)
[2018-04-12] MEDS: ATORVASTATIN CALCIUM 10 MG TABLET. PO SCH (20:06)
[2018-04-12] MEDS: traMADol 50 MG TABLET PO SCH (20:07)
[2018-04-12] MEDS: MELATONIN 3 MG TABLET PO SCH (20:08)
--- NOTE | 2018-04-12 22:56 | PDOC ---
Exam Note: Eddie Note: Please also refer to the separate dictated note~for this date of service dictated separately.~Patient seen individually. Discussed the patient with Nursing staff reviewed the chart.~Reviewed interim history and current functioning. Reviewed vital signs,~Labs/ Radiology~and current medications noted below. Continue current treatment with the changes noted in the dictated addendum note Assessment: Vital Signs: Vital Signs Date Time Temp Pulse Resp B/P (MAP) Pulse Ox O2 Delivery O2 Flow Rate FiO2 04/12/18 21:42 96 04/12/18 16:12 97.9 87 18 138/84 (102) 04/10/18 16:49 Room Air I&O Intake and Output 04/12/18 07:01 Intake Total 520 ml Balance 520 ml Intake Oral 520 ml Labs: Laboratory Tests Test 04/12/18 07:40 White Blood Count 8.3 x10^3/uL (4.0-11.0) Red Blood Count 4.26 x10^6/uL (3.50-5.40) Hemoglobin 13.3 g/dL (12.0-15.5) Hematocrit 40.4 % (36.0-47.0) Mean Corpuscular Volume 95 fL (79-100) Mean Corpuscular Hemoglobin 31 pg (25-35) Mean Corpuscular Hemoglobin Concent 33 g/dL (31-37) Red Cell Distribution Width 12.7 % (11.5-14.5) Platelet Count 181 x10^3/uL (140-400) Neutrophils (%) (Auto) 57 % (31-73) Lymphocytes (%) (Auto) 30 % (24-48) Monocytes (%) (Auto) 10 % (0-9) H Eosinophils (%) (Auto) 3 % (0-3) Basophils (%) (Auto) 1 % (0-3) Neutrophils # (Auto) 4.7 x10^3uL (1.8-7.7) Lymphocytes # (Auto) 2.4 x10^3/uL (1.0-4.8) Monocytes # (Auto) 0.8 x10^3/uL (0.0-1.1) Eosinophils # (Auto) 0.2 x10^3/uL (0.0-0.7) Basophils # (Auto) 0.1 x10^3/uL (0.0-0.2) Sodium Level 144 mmol/L (136-145) Potassium Level 4.0 mmol/L (3.5-5.1) Chloride Level 107 mmol/L (98-107) Carbon Dioxide Level 30 mmol/L (21-32) Anion Gap 7 (6-14) Blood Urea Nitrogen 34 mg/dL (7-20) H Creatinine 1.5 mg/dL (0.6-1.0) H Estimated GFR (Cockcroft-Gault) 33.2 BUN/Creatinine Ratio 23 (6-20) H Glucose Level 94 mg/dL (70-99) Calcium Level 9.7 mg/dL (8.5-10.1) Total Bilirubin 0.5 mg/dL (0.2-1.0) Aspartate Amino Transferase (AST) 14 U/L (15-37) L Alanine Aminotransferase (ALT) 24 U/L (14-59) Alkaline Phosphatase 58 U/L (46-116) Total Protein 6.9 g/dL (6.4-8.2) Albumin 3.2 g/dL (3.4-5.0) L Albumin/Globulin Ratio 0.9 (1.0-1.7) L Current Medications: Meds: Current Medications Trimethoprim/ Sulfamethoxazole (Bactrim Ds) 1 tab 1X ONCE PO Last administered on 03/27/18at 18:31; Start 03/27/18 at 18:00; Stop 03/28/18 at 14:01 ; Status DC Acetaminophen (Tylenol) 650 mg PRN Q6HRS PRN PO PAIN / TEMP; Start 03/27/18 at 18:15 Multi-Ingredient Ointment (Analgesic [place]) 1 majo PRN QID PRN TP MUSCLE PAIN; Start 03/27/18 at 18:15 Al Hydroxide/Mg Hydroxide (Mylanta Plus Xs) 15 ml PRN AFTMEALHC PRN PO DYSPEPSIA Last administered on 04/12/18at 12:33; Start 03/27/18 at 18:15 Magnesium Hydroxide (Milk Of Magnesia) 2,400 mg PRN QHS PRN PO CONSTIPATION Last administered on 04/12/18at 14:50; Start 03/27/18 at 18:15 Tramadol HCl (Ultram) 50 mg PRN Q6HRS PRN PO PAIN Last administered on 14:49; Start 03/27/18 at 18:15 Atorvastatin Calcium (Lipitor) 10 mg QHS PO Last administered on 04/12/18 20: 06; Start 03/27/18 at 21:00 Duloxetine HCl (Cymbalta) 30 mg DAILY PO Last administered on 04/08/18 06:53; Start 03/28/18 at 09:00; Stop 04/08/18 at 16:56; Status DC Non-Formulary Medication (Irbesartan ) 150 mg DAILY PO ; Start 03/28/18 at 09:00 ; Stop 03/28/18 at 14:01; Status DC Melatonin 3 mg HS PO Last administered on 04/12/18 20:08; Start 03/27/18 at 21 :00 Memantine (Namenda) 10 mg BID PO Last administered on 04/12/18 20:06; Start at 21:00 Quetiapine Fumarate (SEROquel) 25 mg HS PO Last administered on 03/31/18 20:20 ; Start 03/27/18 at 21:00; Stop 03/31/18 at 21:00; Status DC Lidocaine HCl (Viscous Lidocaine) 5 ml QIDACHS SWSW Last administered on 08:02; Start 03/27/18 at 21:00; Stop 04/01/18 at 12:18; Status DC Lisinopril (Prinivil) 10 mg DAILY PO Last administered on 04/12/18 07:49; Start 03/28/18 at 14:00 Olanzapine (ZyPREXA ZYDIS) 2.5 mg PRN Q2HR PRN PO ANXIETY / AGITATION Last administered on 04/11/18 17:58; Start 03/28/18 at 17:00 Trazodone HCl (Desyrel) 50 mg PRN QHS PRN PO INSOMNIA, MAY REPEAT X1 Last administered on 04/02/18 19:13; Start 03/28/18 at 17:00 Nystatin (Nystop) 1 majo BID TP Last administered on 04/12/18 21:42; Start at 09:00 Quetiapine Fumarate (SEROquel) 12.5 mg TID@0900,1700,2100 PO Last administered on 04/12/18 20:08; Start 03/31/18 at 21:00 Mirtazapine (Remeron) 7.5 mg QHS PO Last administered on 04/12/18 20:06; Start 04/03/18 at 21:00 Vitamin D (Vitamin D3) 50,000 unit WEEKLY PO Last administered on 04/11/18at 09: 47; Start 04/04/18 at 16:15 Duloxetine HCl (Cymbalta) 40 mg DAILY PO Last administered on 04/12/18at 07:49; Start 04/09/18 at 09:00 Tramadol HCl (Ultram) 50 mg QHS PO Last administered on 04/12/18at 20:07; Start 04/08/18 at 21:00 Active Scripts Active Reported Tramadol Hcl (Tramadol HCl) 50 Mg Tablet 50 Mg PO PRN Q6HRS PRN Seroquel (Quetiapine Fumarate) 25 Mg Tablet 25 Mg PO HS Namenda (Memantine Hcl) 10 Mg Tablet 10 Mg PO BID [viscous lidocain 2%] 5 Ml SWSP QIDACHS Melatonin 3 Mg Tablet 3 Mg PO HS Irbesartan 300 Mg Tablet 150 Mg PO DAILY Cymbalta (Duloxetine Hcl) 30 Mg Capsule.dr 30 Mg PO DAILY Atorvastatin Calcium 10 Mg Tablet 10 Mg PO QHS I have reviewed the current psychotropics carefully including drug interactions. Risk benefit ratio favors no change other than as noted in my dictated progress note. Diagnosis: Problems: (1) Dementia (2) Agitation (3) Anxiety disorder (4) Dementia, vascular, with delusions (5) Dementia, vascular, with depression (6) Dementia in Alzheimer's disease with depression (7) Dementia in Alzheimer's disease with delusions (8) Impulse control disorder DERICK LINARES MD Apr 12, 2018 22:56
[2018-04-13 05:23] VITALS: BP 146/77
[2018-04-13] MEDS: MEMANTINE 10 MG TABLET. PO SCH ×2 (07:49→19:36)
[2018-04-13] MEDS: LISINOPRIL 10 MG TABLET PO SCH (07:50)
[2018-04-13] MEDS: QUEtiapine 25 MG TABLET. PO SCH ×3 (07:50→19:37)
[2018-04-13] MEDS: DULoxetine HCL 20 MG CAPSULE.DR PO SCH (07:50)
[2018-04-13] MEDS: NYSTATIN TOPICAL POWDER 15GM BOTTLE. TP SCH ×2 (07:50→19:37)
[2018-04-13 15:43] VITALS: BP 116/70
--- NOTE | 2018-04-13 16:02 | RAD ---
2 view chest 04/13/2018 CLINICAL INDICATION: Shortness of breath. COMPARISON: None. FINDINGS: Cardiac and mediastinal silhouettes are unremarkable. No pleural effusion, pneumothorax or focal consolidation. IMPRESSION: No acute cardiopulmonary abnormality. Electronically signed by: Nguyễn Lozano MD (04/13/2018 3:58 PM) [facility]
[2018-04-13] MEDS: MIRTAZAPINE 7.5 MG TABLET. PO SCH (19:36)
[2018-04-13] MEDS: MELATONIN 3 MG TABLET PO SCH (19:37)
[2018-04-13] MEDS: ATORVASTATIN CALCIUM 10 MG TABLET. PO SCH (19:37)
[2018-04-13] MEDS: traMADol 50 MG TABLET PO SCH (19:39)
--- NOTE | 2018-04-13 21:37 | PN ---
DATE: 04/12/2018 This is a late entry for 04/12/2018 covers elements not covered in my initial note. SUBJECTIVE: The patient slept 8 hours previous night. She gets more agitated consequent to pain, does much better when she receives Ultram, received Zyprexa x 2. REVIEW OF SYSTEMS: Ambulation impaired, in Broda chair. No CV, , pulmonary, eye system symptoms on review. MENTAL STATUS EXAM: Oriented to herself. Insight, judgment, recent and remote memory, attention, concentration, fund of knowledge poor, consistent with her diagnosis mentioned in my initial note. IMPRESSION: Major neurocognitive disorder, Alzheimer, vascular with delusion, depression, behavioral disturbance. Rest unchanged. PLAN: No change from initial note. Continue Cymbalta, melatonin, Seroquel and Namenda along with trazodone and Zyprexa p.r.n., Remeron 7.5 mg at bedtime. DERICK LINARES MD DR: HADLEY/maria elena JOB#: [id number] / [id number]
--- NOTE | 2018-04-13 22:26 | PN ---
DATE: 04/11/2018 This late entry for 04/11/2018 covers elements not covered in my initial note. SUBJECTIVE: I met with the patient in the evening. The patient slept 8-1/4 hours previous night. She has been anxious, grabbing at the hands of anyone standing around her, confused speech is nonsensical. She was agitated, received Zyprexa and then did better. REVIEW OF SYSTEMS: Ambulation impaired, in Broda chair. No CV, , pulmonary, eye, ENT system symptoms on review. Reliability poor. MENTAL STATUS EXAM: Oriented to herself. Insight, judgment, recent and remote memory, attention, concentration, fund of knowledge poor, consistent with her diagnosis mentioned in my initial note. PLAN: No change from initial note. MAN Leonid LINARES MD DR: HADLEY/maria elena JOB#: [id number] / [id number]
--- NOTE | 2018-04-13 22:54 | PDOC ---
Exam Note: Eddie Note: Please also refer to the separate dictated note~for this date of service dictated separately.~Patient seen individually. Discussed the patient with Nursing staff reviewed the chart.~Reviewed interim history and current functioning. Reviewed vital signs,~Labs/ Radiology~and current medications noted below. Continue current treatment with the changes noted in the dictated addendum note Assessment: Vital Signs: Vital Signs Date Time Temp Pulse Resp B/P (MAP) Pulse Ox O2 Delivery O2 Flow Rate FiO2 04/13/18 20:39 98 04/13/18 15:43 98.5 76 20 116/70 (85) 04/10/18 16:49 Room Air I&O Intake and Output 04/13/18 07:01 Intake Total 480 ml Balance 480 ml Intake Oral 480 ml Current Medications: Meds: Current Medications Trimethoprim/ Sulfamethoxazole (Bactrim Ds) 1 tab 1X ONCE PO Last administered on 03/27/18at 18:31; Start 03/27/18 at 18:00; Stop 03/28/18 at 14:01 ; Status DC Acetaminophen (Tylenol) 650 mg PRN Q6HRS PRN PO PAIN / TEMP; Start 03/27/18 at 18:15 Multi-Ingredient Ointment (Analgesic [place]) 1 majo PRN QID PRN TP MUSCLE PAIN; Start 03/27/18 at 18:15 Al Hydroxide/Mg Hydroxide (Mylanta Plus Xs) 15 ml PRN AFTMEALHC PRN PO DYSPEPSIA Last administered on 04/12/18at 12:33; Start 03/27/18 at 18:15 Magnesium Hydroxide (Milk Of Magnesia) 2,400 mg PRN QHS PRN PO CONSTIPATION Last administered on 04/12/18at 14:50; Start 03/27/18 at 18:15 Tramadol HCl (Ultram) 50 mg PRN Q6HRS PRN PO PAIN Last administered on at 14:49; Start 03/27/18 at 18:15 Atorvastatin Calcium (Lipitor) 10 mg QHS PO Last administered on 04/13/18at 19: 37; Start 03/27/18 at 21:00 Duloxetine HCl (Cymbalta) 30 mg DAILY PO Last administered on 04/08/18at 06:53; Start 03/28/18 at 09:00; Stop 04/08/18 at 16:56; Status DC Non-Formulary Medication (Irbesartan ) 150 mg DAILY PO ; Start 03/28/18 at 09:00 ; Stop 03/28/18 at 14:01; Status DC Melatonin 3 mg HS PO Last administered on 04/13/18at 19:37; Start 03/27/18 at 21 :00 Memantine (Namenda) 10 mg BID PO Last administered on 04/13/18 19:36; Start at 21:00 Quetiapine Fumarate (SEROquel) 25 mg HS PO Last administered on 03/31/18 20:20 ; Start 03/27/18 at 21:00; Stop 03/31/18 at 21:00; Status DC Lidocaine HCl (Viscous Lidocaine) 5 ml QIDACHS SWSW Last administered on at 08:02; Start 03/27/18 at 21:00; Stop 04/01/18 at 12:18; Status DC Lisinopril (Prinivil) 10 mg DAILY PO Last administered on 04/13/18at 07:50; Start 03/28/18 at 14:00 Olanzapine (ZyPREXA ZYDIS) 2.5 mg PRN Q2HR PRN PO ANXIETY / AGITATION Last administered on 04/11/18 17:58; Start 03/28/18 at 17:00 Trazodone HCl (Desyrel) 50 mg PRN QHS PRN PO INSOMNIA, MAY REPEAT X1 Last administered on 04/02/18at 19:13; Start 03/28/18 at 17:00 Nystatin (Nystop) 1 majo BID TP Last administered on 04/13/18 19:37; Start at 09:00 Quetiapine Fumarate (SEROquel) 12.5 mg TID@0900,1700,2100 PO Last administered on 04/13/18 19:37; Start 03/31/18 at 21:00 Mirtazapine (Remeron) 7.5 mg QHS PO Last administered on 04/13/18 19:36; Start 04/03/18 at 21:00 Vitamin D (Vitamin D3) 50,000 unit WEEKLY PO Last administered on 04/11/18 09: 47; Start 04/04/18 at 16:15 Duloxetine HCl (Cymbalta) 40 mg DAILY PO Last administered on 04/13/18at 07:50; Start 04/09/18 at 09:00 Tramadol HCl (Ultram) 50 mg QHS PO Last administered on 04/13/18at 19:39; Start 04/08/18 at 21:00 Furosemide (Lasix) 40 mg DAILY PO ; Start 04/14/18 at 09:00; Stop 04/14/18 at 09 :00; Status DC Active Scripts Active Reported Tramadol Hcl (Tramadol HCl) 50 Mg Tablet 50 Mg PO PRN Q6HRS PRN Seroquel (Quetiapine Fumarate) 25 Mg Tablet 25 Mg PO HS Namenda (Memantine Hcl) 10 Mg Tablet 10 Mg PO BID [viscous lidocain 2%] 5 Ml SWSP QIDACHS Melatonin 3 Mg Tablet 3 Mg PO HS Irbesartan 300 Mg Tablet 150 Mg PO DAILY Cymbalta (Duloxetine Hcl) 30 Mg Capsule.dr 30 Mg PO DAILY Atorvastatin Calcium 10 Mg Tablet 10 Mg PO QHS I have reviewed the current psychotropics carefully including drug interactions. Risk benefit ratio favors no change other than as noted in my dictated progress note. Diagnosis: Problems: (1) Dementia (2) Agitation (3) Anxiety disorder (4) Dementia, vascular, with delusions (5) Dementia, vascular, with depression (6) Dementia in Alzheimer's disease with depression (7) Dementia in Alzheimer's disease with delusions (8) Impulse control disorder DERICK LINARES MD Apr 13, 2018 22:54
--- NOTE | 2018-04-14 00:29 | PN ---
DATE: 04/13/2018 SUBJECTIVE: The patient is an 82-year-old female patient whom I have seen today at the nursing staff request as the patient has bilateral lower extremity swelling and also marked erythema. She apparently was seen by Dr. Bernard, who started her on doxycycline for bilateral lower extremity cellulitis; however, she continued to have severe pain, particularly in her left heel area and swelling of both lower extremities. No fever, chills or rigors were documented. OBJECTIVE: GENERAL: When I examined her, she looked well and was clearly in no apparent respiratory distress. No pallor, jaundice, cyanosis, or thyromegaly. No jugular venous distension. No limb edema. VITAL SIGNS: Her heart rate was 91, blood pressure 146/77, temperature was 97.7, respiratory rate was 18, and oxygen saturation 100%. HEAD, EYES, EARS, NOSE AND THROAT: Normocephalic, atraumatic. NECK: Supple. HEART: Showed normal first and second sounds. No gallop, rub or murmur. CHEST: Clear to auscultation. No crepitation or rhonchi. ABDOMEN: Slightly distended, soft, nontender. 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 She moves upper extremities to much greater extent than lower extremity. She is mostly chair bound. LABORATORY DATA: As of yesterday showed white cell count of 8300, hemoglobin 13.3, hematocrit 40, MCV 95, and platelet count of 181,000. Her serum sodium 144, potassium 4, chloride 107, bicarbonate 30, anion gap of 7, BUN 34, creatinine 1.5, estimated GFR was 33 mL. Glucose was 94 and calcium was 9.7. Total bilirubin, AST, ALT, alkaline phosphatase were normal. Total protein was 6.9, albumin was 3.2. Her 25-hydroxy vitamin D is 18.7. PLAN: My plan is to obviously continue with the doxycycline. I will add Lasix 40 mg once a day. We will monitor her closely and obviously. [place] have [place] her on IV antibiotic if her cellulitis has not responded well to doxycycline. ALY HOOKER MD DR: JOEY/maria elena JOB#: [id number] / [id number]
[2018-04-14 06:30] VITALS: BP 144/75
[2018-04-14] MEDS: LISINOPRIL 10 MG TABLET PO SCH (07:48)
[2018-04-14] MEDS: MEMANTINE 10 MG TABLET. PO SCH ×2 (07:49→21:06)
[2018-04-14] MEDS: QUEtiapine 25 MG TABLET. PO SCH ×3 (07:49→21:06)
[2018-04-14] MEDS: NYSTATIN TOPICAL POWDER 15GM BOTTLE. TP SCH ×2 (07:49→21:08)
[2018-04-14] MEDS: DULoxetine HCL 20 MG CAPSULE.DR PO SCH (07:49)
[2018-04-14] MEDS ORDERED: FUROSEMIDE 40 MG TABLET PO SCH (09:00)
[2018-04-14] MEDS: traMADol 50 MG TABLET PO PRN (11:14)
[2018-04-14 16:13] VITALS: BP 143/83
[2018-04-14] MEDS: ATORVASTATIN CALCIUM 10 MG TABLET. PO SCH (21:06)
[2018-04-14] MEDS: MIRTAZAPINE 7.5 MG TABLET. PO SCH (21:06)
[2018-04-14] MEDS: MELATONIN 3 MG TABLET PO SCH (21:06)
[2018-04-14] MEDS: traMADol 50 MG TABLET PO SCH (21:08)
--- NOTE | 2018-04-14 22:45 | PDOC ---
Exam Note: Eddie Note: Please also refer to the separate dictated note~for this date of service dictated separately.~Patient seen individually. Discussed the patient with Nursing staff reviewed the chart.~Reviewed interim history and current functioning. Reviewed vital signs,~Labs/ Radiology~and current medications noted below. Continue current treatment with the changes noted in the dictated addendum note Assessment: Vital Signs: Vital Signs Date Time Temp Pulse Resp B/P (MAP) Pulse Ox O2 Delivery O2 Flow Rate FiO2 04/14/18 16:13 97.5 91 16 143/83 (103) 97 Room Air I&O Intake and Output 04/14/18 07:01 Intake Total 720 ml Balance 720 ml Intake Oral 720 ml Current Medications: Meds: Current Medications Trimethoprim/ Sulfamethoxazole (Bactrim Ds) 1 tab 1X ONCE PO Last administered on 03/27/18at 18:31; Start 03/27/18 at 18:00; Stop 03/28/18 at 14:01 ; Status DC Acetaminophen (Tylenol) 650 mg PRN Q6HRS PRN PO PAIN / TEMP; Start 03/27/18 at 18:15 Multi-Ingredient Ointment (Analgesic [place]) 1 majo PRN QID PRN TP MUSCLE PAIN; Start 03/27/18 at 18:15 Al Hydroxide/Mg Hydroxide (Mylanta Plus Xs) 15 ml PRN AFTMEALHC PRN PO DYSPEPSIA Last administered on 04/12/18at 12:33; Start 03/27/18 at 18:15 Magnesium Hydroxide (Milk Of Magnesia) 2,400 mg PRN QHS PRN PO CONSTIPATION Last administered on 04/12/18at 14:50; Start 03/27/18 at 18:15 Tramadol HCl (Ultram) 50 mg PRN Q6HRS PRN PO PAIN Last administered on at 11:14; Start 03/27/18 at 18:15 Atorvastatin Calcium (Lipitor) 10 mg QHS PO Last administered on 04/14/18at 21: 06; Start 03/27/18 at 21:00 Duloxetine HCl (Cymbalta) 30 mg DAILY PO Last administered on 04/08/18at 06:53; Start 03/28/18 at 09:00; Stop 04/08/18 at 16:56; Status DC Non-Formulary Medication (Irbesartan ) 150 mg DAILY PO ; Start 03/28/18 at 09:00 ; Stop 03/28/18 at 14:01; Status DC Melatonin 3 mg HS PO Last administered on 04/14/18 21:06; Start 03/27/18 at 21 :00 Memantine (Namenda) 10 mg BID PO Last administered on 04/14/18 21:06; Start at 21:00 Quetiapine Fumarate (SEROquel) 25 mg HS PO Last administered on 03/31/18 20:20 ; Start 03/27/18 at 21:00; Stop 03/31/18 at 21:00; Status DC Lidocaine HCl (Viscous Lidocaine) 5 ml QIDACHS SWSW Last administered on 08:02; Start 03/27/18 at 21:00; Stop 04/01/18 at 12:18; Status DC Lisinopril (Prinivil) 10 mg DAILY PO Last administered on 04/14/18 07:48; Start 03/28/18 at 14:00 Olanzapine (ZyPREXA ZYDIS) 2.5 mg PRN Q2HR PRN PO ANXIETY / AGITATION Last administered on 04/14/18 10:22; Start 03/28/18 at 17:00 Trazodone HCl (Desyrel) 50 mg PRN QHS PRN PO INSOMNIA, MAY REPEAT X1 Last administered on 04/02/18 19:13; Start 03/28/18 at 17:00 Nystatin (Nystop) 1 majo BID TP Last administered on 04/14/18 21:08; Start at 09:00 Quetiapine Fumarate (SEROquel) 12.5 mg TID@0900,1700,2100 PO Last administered on 04/14/18 21:06; Start 03/31/18 at 21:00 Mirtazapine (Remeron) 7.5 mg QHS PO Last administered on 04/14/18 21:06; Start 04/03/18 at 21:00 Vitamin D (Vitamin D3) 50,000 unit WEEKLY PO Last administered on 04/11/18 09: 47; Start 04/04/18 at 16:15 Duloxetine HCl (Cymbalta) 40 mg DAILY PO Last administered on 1/29/19at 07:49; Start 04/09/18 at 09:00 Tramadol HCl (Ultram) 50 mg QHS PO Last administered on 04/14/18at 21:08; Start 04/08/18 at 21:00 Furosemide (Lasix) 40 mg DAILY PO ; Start 04/14/18 at 09:00; Stop 04/14/18 at 09 :00; Status DC Active Scripts Active Reported Tramadol Hcl (Tramadol HCl) 50 Mg Tablet 50 Mg PO PRN Q6HRS PRN Seroquel (Quetiapine Fumarate) 25 Mg Tablet 25 Mg PO HS Namenda (Memantine Hcl) 10 Mg Tablet 10 Mg PO BID [viscous lidocain 2%] 5 Ml SWSP QIDACHS Melatonin 3 Mg Tablet 3 Mg PO HS Irbesartan 300 Mg Tablet 150 Mg PO DAILY Cymbalta (Duloxetine Hcl) 30 Mg Capsule.dr 30 Mg PO DAILY Atorvastatin Calcium 10 Mg Tablet 10 Mg PO QHS I have reviewed the current psychotropics carefully including drug interactions. Risk benefit ratio favors no change other than as noted in my dictated progress note. Diagnosis: Problems: (1) Dementia (2) Agitation (3) Anxiety disorder (4) Dementia, vascular, with delusions (5) Dementia, vascular, with depression (6) Dementia in Alzheimer's disease with depression (7) Dementia in Alzheimer's disease with delusions (8) Impulse control disorder DERICK LINARES MD Apr 14, 2018 22:45
--- NOTE | 2018-04-14 22:54 | PN ---
DATE: 04/13/2018 PSYCHIATRIC PROGRESS NOTE This late entry 04/13/2018 covers elements not covered in my initial note. SUBJECTIVE: I met with the patient in the evening. The patient slept 7-1/4 hours previous night. She has been somewhat sedated during the day in a Broda chair. Seroquel is being held if she is sedated. REVIEW OF SYSTEMS: Ambulation impaired as above. No CV, , pulmonary, eye, ENT system symptoms on review. Reliability poor. She does have some stiffness. MENTAL STATUS EXAM: Oriented to herself. Insight, judgment, recent and remote memory, attention, concentration, fund of knowledge poor, consistent with her diagnoses. IMPRESSION: Major neurocognitive disorder, Alzheimer, vascular with delusion, depression, behavioral disturbance. Rest unchanged. PLAN: No change from initial note. Hold Seroquel if she is sedated. Rest unchanged. MAN Leonid LINARES MD DR: HADLEY/maria elena JOB#: [id number] / [id number]
[2018-04-15] MEDS ORDERED: LISI10TA2 PO (00:20)
[2018-04-15] MEDS ORDERED: TRAM-48 PO (00:23)
[2018-04-15] MEDS ORDERED: MIRT15TA PO (00:25)
[2018-04-15] MEDS ORDERED: TRAZ-120 PO (00:26)
[2018-04-15] MEDS ORDERED: OLAN5TAB5 PO (00:28)
[2018-04-15] MEDS ORDERED: NYST15PO9 TP (00:29)
[2018-04-15] MEDS ORDERED: CHOL500021 PO (00:31)
[2018-04-15] MEDS ORDERED: ACET325T9 PO (00:32)
[2018-04-15] MEDS ORDERED: MAG355OR17 PO (00:35)
[2018-04-15] MEDS ORDERED: MAGN2400 PO (00:36)
[2018-04-15] MEDS ORDERED: MENT113G6 TP (00:37)
[2018-04-15 05:58] VITALS: BP 151/89
[2018-04-15] MEDS: DULoxetine HCL 20 MG CAPSULE.DR PO SCH (08:17)
[2018-04-15] MEDS: LISINOPRIL 10 MG TABLET PO SCH (08:17)
[2018-04-15] MEDS: MEMANTINE 10 MG TABLET. PO SCH ×2 (08:18→20:34)
[2018-04-15] MEDS: QUEtiapine 25 MG TABLET. PO SCH ×3 (08:18→20:34)
[2018-04-15] MEDS: NYSTATIN TOPICAL POWDER 15GM BOTTLE. TP SCH ×2 (08:18→20:35)
[2018-04-15] MEDS: MAGNESIUM HYDROXIDE 2,400 MG/30 ML ORAL.SUSP. PO PRN ×2 (10:37→20:36)
[2018-04-15 16:33] VITALS: BP 136/74
[2018-04-15] MEDS: ATORVASTATIN CALCIUM 10 MG TABLET. PO SCH (20:34)
[2018-04-15] MEDS: MIRTAZAPINE 7.5 MG TABLET. PO SCH (20:34)
[2018-04-15] MEDS: traMADol 50 MG TABLET PO SCH (20:34)
[2018-04-15] MEDS: MELATONIN 3 MG TABLET PO SCH (20:34)
--- NOTE | 2018-04-15 22:07 | PN ---
DATE: 04/14/2018 PSYCHIATRIC PROGRESS NOTE This late entry 04/14/2018 covers elements not covered in my initial note. SUBJECTIVE: I met with the patient in the evening. The patient slept 7-3/4 hours previous night. She has been ambulating a little bit better, wandered into the day room, was agitated around 10:30, received Zyprexa 2.5 for this. Ultram for pain, really helps behaviorally as well. REVIEW OF SYSTEMS: Ambulation impaired. No CV, , pulmonary, eye system symptoms on review. MENTAL STATUS EXAM: Oriented to herself. Insight, judgment, recent and remote memory, attention, concentration, fund of knowledge poor, consistent with her diagnosis. She is not very verbal. LABORATORY DATA: Reviewed. IMPRESSION: Major neurocognitive disorder, Alzheimer, vascular with delusion, depression, behavioral disturbance. Rest unchanged. PLAN: No change from initial note. DERICK LINARES MD DR: HADLEY/maria elena JOB#: [id number] / [id number]
--- NOTE | 2018-04-15 22:38 | PDOC ---
Exam Note: Eddie Note: Please also refer to the separate dictated note~for this date of service dictated separately.~Patient seen individually. Discussed the patient with Nursing staff reviewed the chart.~Reviewed interim history and current functioning. Reviewed vital signs,~Labs/ Radiology~and current medications noted below. Continue current treatment with the changes noted in the dictated addendum note Assessment: Vital Signs: Vital Signs Date Time Temp Pulse Resp B/P (MAP) Pulse Ox O2 Delivery O2 Flow Rate FiO2 04/15/18 16:33 97.4 70 20 136/74 (94) 95 04/14/18 16:13 Room Air I&O Intake and Output 04/15/18 07:01 Intake Total 600 ml Balance 600 ml Intake Oral 600 ml Current Medications: Meds: Current Medications Trimethoprim/ Sulfamethoxazole (Bactrim Ds) 1 tab 1X ONCE PO Last administered on 03/27/18at 18:31; Start 03/27/18 at 18:00; Stop 03/28/18 at 14:01 ; Status DC Acetaminophen (Tylenol) 650 mg PRN Q6HRS PRN PO PAIN / TEMP; Start 03/27/18 at 18:15 Multi-Ingredient Ointment (Analgesic [place]) 1 majo PRN QID PRN TP MUSCLE PAIN; Start 03/27/18 at 18:15 Al Hydroxide/Mg Hydroxide (Mylanta Plus Xs) 15 ml PRN AFTMEALHC PRN PO DYSPEPSIA Last administered on 04/12/18at 12:33; Start 03/27/18 at 18:15 Magnesium Hydroxide (Milk Of Magnesia) 2,400 mg PRN QHS PRN PO CONSTIPATION Last administered on 04/15/18at 20:36; Start 03/27/18 at 18:15 Tramadol HCl (Ultram) 50 mg PRN Q6HRS PRN PO PAIN Last administered on at 11:14; Start 03/27/18 at 18:15 Atorvastatin Calcium (Lipitor) 10 mg QHS PO Last administered on 04/15/18at 20: 34; Start 03/27/18 at 21:00 Duloxetine HCl (Cymbalta) 30 mg DAILY PO Last administered on 04/08/18at 06:53; Start 03/28/18 at 09:00; Stop 04/08/18 at 16:56; Status DC Non-Formulary Medication (Irbesartan ) 150 mg DAILY PO ; Start 03/28/18 at 09:00 ; Stop 03/28/18 at 14:01; Status DC Melatonin 3 mg HS PO Last administered on 04/15/18 20:34; Start 03/27/18 at 21 :00 Memantine (Namenda) 10 mg BID PO Last administered on 04/15/18 20:34; Start at 21:00 Quetiapine Fumarate (SEROquel) 25 mg HS PO Last administered on 03/31/18 20:20 ; Start 03/27/18 at 21:00; Stop 03/31/18 at 21:00; Status DC Lidocaine HCl (Viscous Lidocaine) 5 ml QIDACHS SWSW Last administered on 08:02; Start 03/27/18 at 21:00; Stop 04/01/18 at 12:18; Status DC Lisinopril (Prinivil) 10 mg DAILY PO Last administered on 04/15/18 08:17; Start 03/28/18 at 14:00 Olanzapine (ZyPREXA ZYDIS) 2.5 mg PRN Q2HR PRN PO ANXIETY / AGITATION Last administered on 04/15/18 14:50; Start 03/28/18 at 17:00 Trazodone HCl (Desyrel) 50 mg PRN QHS PRN PO INSOMNIA, MAY REPEAT X1 Last administered on 04/02/18 19:13; Start 03/28/18 at 17:00 Nystatin (Nystop) 1 majo BID TP Last administered on 04/15/18 20:35; Start at 09:00 Quetiapine Fumarate (SEROquel) 12.5 mg TID@0900,1700,2100 PO Last administered on 04/15/18 20:34; Start 03/31/18 at 21:00 Mirtazapine (Remeron) 7.5 mg QHS PO Last administered on 04/15/18 20:34; Start 04/03/18 at 21:00 Vitamin D (Vitamin D3) 50,000 unit WEEKLY PO Last administered on 04/11/18at 09: 47; Start 04/04/18 at 16:15 Duloxetine HCl (Cymbalta) 40 mg DAILY PO Last administered on 04/15/18at 08:17; Start 04/09/18 at 09:00 Tramadol HCl (Ultram) 50 mg QHS PO Last administered on 04/15/18at 20:34; Start 04/08/18 at 21:00 Furosemide (Lasix) 40 mg DAILY PO ; Start 04/14/18 at 09:00; Stop 04/14/18 at 09 :00; Status DC Active Scripts Active Reported Beng[place] (Menthol) 113 Gm Gel..gram. 113 Gm TP PRN QID PRN Milk Of Magnesia (Magnesium Hydroxide) 2,400 Mg/10 Ml Oral.susp 2,400 Mg PO PRN QHS PRN Advanced Antacid Liquid (Mag Hydrox/Al Hydrox/Simeth) 355 Ml Oral.susp 15 Ml PO PRN QID PRN Tylenol (Acetaminophen) 325 Mg Tablet 650 Mg PO PRN Q4HRS PRN D3-50 (Cholecalciferol (Vitamin D3)) 50,000 Unit Capsule 50,000 Unit PO WEEKLY Nystatin 15 Gm Powder 15 Gm TP BID Zyprexa Zydis (Olanzapine) 5 Mg Tab.rapdis 2.5 Mg PO PRN Q2HR PRN Trazodone Hcl 50 Mg Tablet 50 Mg PO PRN QHS PRN Remeron (Mirtazapine) 15 Mg Tablet 7.5 Mg PO HS Ultram (Tramadol HCl) 50 Mg Tablet 50 Mg PO HS Lisinopril 10 Mg Tablet 10 Mg PO DAILY Tramadol Hcl (Tramadol HCl) 50 Mg Tablet 50 Mg PO PRN Q6HRS PRN Seroquel (Quetiapine Fumarate) 25 Mg Tablet 12.5 Mg PO [id number] Namenda (Memantine Hcl) 10 Mg Tablet 10 Mg PO BID Melatonin 3 Mg Tablet 3 Mg PO HS Irbesartan 300 Mg Tablet 150 Mg PO DAILY Cymbalta (Duloxetine Hcl) 30 Mg Capsule. 40 Mg PO DAILY I have reviewed the current psychotropics carefully including drug interactions. Risk benefit ratio favors no change other than as noted in my dictated progress note. Diagnosis: Problems: (1) Dementia (2) Agitation (3) Anxiety disorder (4) Dementia, vascular, with delusions (5) Dementia, vascular, with depression (6) Dementia in Alzheimer's disease with depression (7) Dementia in Alzheimer's disease with delusions (8) Impulse control disorder DERICK LINARES MD Apr 15, 2018 22:38
[2018-04-16 06:53] VITALS: BP 131/84
[2018-04-16] MEDS: LISINOPRIL 10 MG TABLET PO SCH (08:01)
[2018-04-16] MEDS: DULoxetine HCL 20 MG CAPSULE.DR PO SCH (08:01)
[2018-04-16] MEDS: MEMANTINE 10 MG TABLET. PO SCH ×2 (08:01→21:12)
[2018-04-16] MEDS: QUEtiapine 25 MG TABLET. PO SCH ×3 (08:01→21:12)
[2018-04-16] MEDS: NYSTATIN TOPICAL POWDER 15GM BOTTLE. TP SCH ×2 (10:08→21:12)
[2018-04-16 16:16] VITALS: BP 103/60
[2018-04-16] MEDS: DIVALPROEX 125 MG CAP.SPRINK PO SCH (17:05)
[2018-04-16] MEDS ORDERED: BISACODYL 10 MG SUPP.RECT PR PRN (20:15)
[2018-04-16] MEDS: MIRTAZAPINE 7.5 MG TABLET. PO SCH (21:11)
[2018-04-16] MEDS: MELATONIN 3 MG TABLET PO SCH (21:11)
[2018-04-16] MEDS: ATORVASTATIN CALCIUM 10 MG TABLET. PO SCH (21:12)
[2018-04-16] MEDS: traMADol 50 MG TABLET PO SCH (21:12)
--- NOTE | 2018-04-16 22:33 | PDOC ---
Exam Note: Eddie Note: Please also refer to the separate dictated note~for this date of service dictated separately.~Patient seen individually. Discussed the patient with Nursing staff reviewed the chart.~Reviewed interim history and current functioning. Reviewed vital signs,~Labs/ Radiology~and current medications noted below. Continue current treatment with the changes noted in the dictated addendum note Assessment: Vital Signs: Vital Signs Date Time Temp Pulse Resp B/P (MAP) Pulse Ox O2 Delivery O2 Flow Rate FiO2 04/16/18 21:12 92 04/16/18 16:16 98.0 73 20 103/60 (74) 04/14/18 16:13 Room Air I&O Intake and Output 04/16/18 07:01 Intake Total 680 ml Balance 680 ml Intake Oral 680 ml Current Medications: Meds: Current Medications Trimethoprim/ Sulfamethoxazole (Bactrim Ds) 1 tab 1X ONCE PO Last administered on 03/27/18at 18:31; Start 03/27/18 at 18:00; Stop 03/28/18 at 14:01 ; Status DC Acetaminophen (Tylenol) 650 mg PRN Q6HRS PRN PO PAIN / TEMP; Start 03/27/18 at 18:15 Multi-Ingredient Ointment (Analgesic [place]) 1 majo PRN QID PRN TP MUSCLE PAIN; Start 03/27/18 at 18:15 Al Hydroxide/Mg Hydroxide (Mylanta Plus Xs) 15 ml PRN AFTMEALHC PRN PO DYSPEPSIA Last administered on 04/12/18at 12:33; Start 03/27/18 at 18:15 Magnesium Hydroxide (Milk Of Magnesia) 2,400 mg PRN QHS PRN PO CONSTIPATION Last administered on 04/15/18at 20:36; Start 03/27/18 at 18:15 Tramadol HCl (Ultram) 50 mg PRN Q6HRS PRN PO PAIN Last administered on at 11:14; Start 03/27/18 at 18:15 Atorvastatin Calcium (Lipitor) 10 mg QHS PO Last administered on 04/16/18at 21: 12; Start 03/27/18 at 21:00 Duloxetine HCl (Cymbalta) 30 mg DAILY PO Last administered on 04/08/18at 06:53; Start 03/28/18 at 09:00; Stop 04/08/18 at 16:56; Status DC Non-Formulary Medication (Irbesartan ) 150 mg DAILY PO ; Start 03/28/18 at 09:00 ; Stop 03/28/18 at 14:01; Status DC Melatonin 3 mg HS PO Last administered on 04/16/18 21:11; Start 03/27/18 at 21 :00 Memantine (Namenda) 10 mg BID PO Last administered on 04/16/18 21:12; Start at 21:00 Quetiapine Fumarate (SEROquel) 25 mg HS PO Last administered on 03/31/18 20:20 ; Start 03/27/18 at 21:00; Stop 03/31/18 at 21:00; Status DC Lidocaine HCl (Viscous Lidocaine) 5 ml QIDACHS SWSW Last administered on 08:02; Start 03/27/18 at 21:00; Stop 04/01/18 at 12:18; Status DC Lisinopril (Prinivil) 10 mg DAILY PO Last administered on 04/16/18 08:01; Start 03/28/18 at 14:00 Olanzapine (ZyPREXA ZYDIS) 2.5 mg PRN Q2HR PRN PO ANXIETY / AGITATION Last administered on 04/16/18 20:12; Start 03/28/18 at 17:00 Trazodone HCl (Desyrel) 50 mg PRN QHS PRN PO INSOMNIA, MAY REPEAT X1 Last administered on 04/02/18 19:13; Start 03/28/18 at 17:00 Nystatin (Nystop) 1 majo BID TP Last administered on 04/16/18 21:12; Start at 09:00 Quetiapine Fumarate (SEROquel) 12.5 mg TID@0900,1700,2100 PO Last administered on 04/16/18 21:12; Start 03/31/18 at 21:00 Mirtazapine (Remeron) 7.5 mg QHS PO Last administered on 04/16/18 21:11; Start 04/03/18 at 21:00 Vitamin D (Vitamin D3) 50,000 unit WEEKLY PO Last administered on 04/11/18at 09: 47; Start 04/04/18 at 16:15 Duloxetine HCl (Cymbalta) 40 mg DAILY PO Last administered on 04/16/18at 08:01; Start 04/09/18 at 09:00 Tramadol HCl (Ultram) 50 mg QHS PO Last administered on 04/16/18at 21:12; Start 04/08/18 at 21:00 Furosemide (Lasix) 40 mg DAILY PO ; Start 04/14/18 at 09:00; Stop 04/14/18 at 09 :00; Status DC Divalproex Sodium (Depakote Sprinkles) 125 mg BIDWMEALS PO Last administered on 04/16/18at 17:05; Start 04/16/18 at 17:00 Bisacodyl (Dulcolax Supp) 10 mg PRN DAILY PRN [place] CONSTIPATION; Start 04/16/18 at 20:15 Active Scripts Active Reported [place] (Menthol) 113 Gm Gel..gram. 113 Gm TP PRN QID PRN Milk Of Magnesia (Magnesium Hydroxide) 2,400 Mg/10 Ml Oral.susp 2,400 Mg PO PRN QHS PRN Advanced Antacid Liquid (Mag Hydrox/Al Hydrox/Simeth) 355 Ml Oral.susp 15 Ml PO PRN QID PRN Tylenol (Acetaminophen) 325 Mg Tablet 650 Mg PO PRN Q4HRS PRN D3-50 (Cholecalciferol (Vitamin D3)) 50,000 Unit Capsule 50,000 Unit PO WEEKLY Nystatin 15 Gm Powder 15 Gm TP BID Zyprexa Zydis (Olanzapine) 5 Mg Tab.rapdis 2.5 Mg PO PRN Q2HR PRN Trazodone Hcl 50 Mg Tablet 50 Mg PO PRN QHS PRN Remeron (Mirtazapine) 15 Mg Tablet 7.5 Mg PO HS Ultram (Tramadol HCl) 50 Mg Tablet 50 Mg PO HS Lisinopril 10 Mg Tablet 10 Mg PO DAILY Tramadol Hcl (Tramadol HCl) 50 Mg Tablet 50 Mg PO PRN Q6HRS PRN Seroquel (Quetiapine Fumarate) 25 Mg Tablet 12.5 Mg PO [id number] Namenda (Memantine Hcl) 10 Mg Tablet 10 Mg PO BID Melatonin 3 Mg Tablet 3 Mg PO HS Irbesartan 300 Mg Tablet 150 Mg PO DAILY Cymbalta (Duloxetine Hcl) 30 Mg Capsule.dr 40 Mg PO DAILY I have reviewed the current psychotropics carefully including drug interactions. Risk benefit ratio favors no change other than as noted in my dictated progress note. Diagnosis: Problems: (1) Dementia (2) Agitation (3) Anxiety disorder (4) Dementia, vascular, with delusions (5) Dementia, vascular, with depression (6) Dementia in Alzheimer's disease with depression (7) Dementia in Alzheimer's disease with delusions (8) Impulse control disorder DERICK LINARES MD Apr 16, 2018 22:33
[2018-04-17 06:26] VITALS: BP 137/83
[2018-04-17] MEDS: DULoxetine HCL 20 MG CAPSULE.DR PO SCH (07:47)
[2018-04-17] MEDS: MEMANTINE 10 MG TABLET. PO SCH ×3 (07:47→21:00)
[2018-04-17] MEDS: DIVALPROEX 125 MG CAP.SPRINK PO SCH ×2 (07:48→17:04)
[2018-04-17] MEDS: QUEtiapine 25 MG TABLET. PO SCH ×4 (07:48→21:00)
[2018-04-17] MEDS: LISINOPRIL 10 MG TABLET PO SCH (07:48)
[2018-04-17] MEDS: NYSTATIN TOPICAL POWDER 15GM BOTTLE. TP SCH ×2 (07:49→21:30)
[2018-04-17 16:07] VITALS: BP 115/67
[2018-04-17] MEDS: ATORVASTATIN CALCIUM 10 MG TABLET. PO SCH ×2 (19:47→21:00)
[2018-04-17] MEDS: MIRTAZAPINE 7.5 MG TABLET. PO SCH ×2 (19:47→21:00)
[2018-04-17] MEDS: MELATONIN 3 MG TABLET PO SCH ×2 (19:47→21:00)
[2018-04-17] MEDS: traMADol 50 MG TABLET PO SCH ×2 (19:48→21:00)
--- NOTE | 2018-04-17 21:11 | PN ---
DATE: 04/15/2018 PSYCHIATRIC PROGRESS NOTE This late entry 04/15/2018 covers elements, not covered in my initial note. SUBJECTIVE: I met with the patient in the evening. The patient slept 8 hours previous night. Plan was to transition her to snf on 04/15/2018, but she was quite agitated, yelling, screaming, and at 2:45 p.m., received Zyprexa p.r.n. She was agitated previous night as well. We will postpone the discharge. REVIEW OF SYSTEMS: Ambulation impaired, in wheelchair. No CV, , pulmonary, eye, ENT system symptoms on review. Reliability poor. MENTAL STATUS EXAM: Oriented to herself. Insight, judgment, recent and remote memory, attention, concentration, fund of knowledge poor, consistent with her diagnoses. IMPRESSION: Major neurocognitive disorder, Alzheimer, vascular with delusion, depression, behavioral disturbance. Rest unchanged. PLAN: Continue psychotropics from initial note. Seroquel will be held if she is sedated. We may have to add Depakote as a mood stabilizer, which will involve the family at treatment team meeting on 04/16/2018 and then decide. DERICK LINARES MD DR: HADLEY/maria elena JOB#: [id number] / [id number]
--- NOTE | 2018-04-17 22:59 | PDOC ---
Exam Note: Eddie Note: Please also refer to the separate dictated note~for this date of service dictated separately.~Patient seen individually. Discussed the patient with Nursing staff reviewed the chart.~Reviewed interim history and current functioning. Reviewed vital signs,~Labs/ Radiology~and current medications noted below. Continue current treatment with the changes noted in the dictated addendum note Assessment: Vital Signs: Vital Signs Date Time Temp Pulse Resp B/P (MAP) Pulse Ox O2 Delivery O2 Flow Rate FiO2 04/17/18 21:00 97 04/17/18 16:07 97.6 86 17 115/67 (83) Room Air I&O Intake and Output 04/17/18 07:01 Intake Total 845 ml Balance 845 ml Intake Oral 845 ml # Bowel Movements 1 Current Medications: Meds: Current Medications Trimethoprim/ Sulfamethoxazole (Bactrim Ds) 1 tab 1X ONCE PO Last administered on 03/27/18at 18:31; Start 03/27/18 at 18:00; Stop 03/28/18 at 14:01 ; Status DC Acetaminophen (Tylenol) 650 mg PRN Q6HRS PRN PO PAIN / TEMP; Start 03/27/18 at 18:15 Multi-Ingredient Ointment (Analgesic [place]) 1 majo PRN QID PRN TP MUSCLE PAIN; Start 03/27/18 at 18:15 Al Hydroxide/Mg Hydroxide (Mylanta Plus Xs) 15 ml PRN AFTMEALHC PRN PO DYSPEPSIA Last administered on 04/12/18at 12:33; Start 03/27/18 at 18:15 Magnesium Hydroxide (Milk Of Magnesia) 2,400 mg PRN QHS PRN PO CONSTIPATION Last administered on 04/15/18at 20:36; Start 03/27/18 at 18:15 Tramadol HCl (Ultram) 50 mg PRN Q6HRS PRN PO PAIN Last administered on at 11:14; Start 03/27/18 at 18:15 Atorvastatin Calcium (Lipitor) 10 mg QHS PO Last administered on 04/16/18at 21: 12; Start 03/27/18 at 21:00 Duloxetine HCl (Cymbalta) 30 mg DAILY PO Last administered on 04/08/18at 06:53; Start 03/28/18 at 09:00; Stop 04/08/18 at 16:56; Status DC Non-Formulary Medication (Irbesartan ) 150 mg DAILY PO ; Start 03/28/18 at 09:00 ; Stop 03/28/18 at 14:01; Status DC Melatonin 3 mg HS PO Last administered on 04/16/18 21:11; Start 03/27/18 at 21 :00 Memantine (Namenda) 10 mg BID PO Last administered on 04/17/18 07:47; Start 02/02 at 21:00 Quetiapine Fumarate (SEROquel) 25 mg HS PO Last administered on 03/31/18 20:20 ; Start 03/27/18 at 21:00; Stop 03/31/18 at 21:00; Status DC Lidocaine HCl (Viscous Lidocaine) 5 ml QIDACHS SWSW Last administered on 08:02; Start 03/27/18 at 21:00; Stop 04/01/18 at 12:18; Status DC Lisinopril (Prinivil) 10 mg DAILY PO Last administered on 04/17/18 07:48; Start 03/28/18 at 14:00 Olanzapine (ZyPREXA ZYDIS) 2.5 mg PRN Q2HR PRN PO ANXIETY / AGITATION Last administered on 04/16/18 20:12; Start 03/28/18 at 17:00 Trazodone HCl (Desyrel) 50 mg PRN QHS PRN PO INSOMNIA, MAY REPEAT X1 Last administered on 04/02/18 19:13; Start 03/28/18 at 17:00 Nystatin (Nystop) 1 majo BID TP Last administered on 04/17/18 21:30; Start 03/29 at 09:00 Quetiapine Fumarate (SEROquel) 12.5 mg TID@0900,1700,2100 PO Last administered on 04/17/18 17:04; Start 03/31/18 at 21:00 Mirtazapine (Remeron) 7.5 mg QHS PO Last administered on 04/16/18 21:11; Start 04/03/18 at 21:00 Vitamin D (Vitamin D3) 50,000 unit WEEKLY PO Last administered on 04/11/18 09: 47; Start 04/04/18 at 16:15 Duloxetine HCl (Cymbalta) 40 mg DAILY PO Last administered on 04/17/18at 07:47; Start 04/09/18 at 09:00 Tramadol HCl (Ultram) 50 mg QHS PO Last administered on 04/16/18at 21:12; Start 04/08/18 at 21:00 Furosemide (Lasix) 40 mg DAILY PO ; Start 04/14/18 at 09:00; Stop 04/14/18 at 09 :00; Status DC Divalproex Sodium (Depakote Sprinkles) 125 mg BIDWMEALS PO Last administered on 04/17/18at 17:04; Start 04/16/18 at 17:00 Bisacodyl (Dulcolax Supp) 10 mg PRN DAILY PRN [place] CONSTIPATION; Start 04/16/18 at 20:15 Active Scripts Active Reported [place] (Menthol) 113 Gm Gel..gram. 113 Gm TP PRN QID PRN Milk Of Magnesia (Magnesium Hydroxide) 2,400 Mg/10 Ml Oral.susp 2,400 Mg PO PRN QHS PRN Advanced Antacid Liquid (Mag Hydrox/Al Hydrox/Simeth) 355 Ml Oral.susp 15 Ml PO PRN QID PRN Tylenol (Acetaminophen) 325 Mg Tablet 650 Mg PO PRN Q4HRS PRN D3-50 (Cholecalciferol (Vitamin D3)) 50,000 Unit Capsule 50,000 Unit PO WEEKLY Nystatin 15 Gm Powder 15 Gm TP BID Zyprexa Zydis (Olanzapine) 5 Mg Tab.rapdis 2.5 Mg PO PRN Q2HR PRN Trazodone Hcl 50 Mg Tablet 50 Mg PO PRN QHS PRN Remeron (Mirtazapine) 15 Mg Tablet 7.5 Mg PO HS Ultram (Tramadol HCl) 50 Mg Tablet 50 Mg PO HS Lisinopril 10 Mg Tablet 10 Mg PO DAILY Tramadol Hcl (Tramadol HCl) 50 Mg Tablet 50 Mg PO PRN Q6HRS PRN Seroquel (Quetiapine Fumarate) 25 Mg Tablet 12.5 Mg PO [id number] Namenda (Memantine Hcl) 10 Mg Tablet 10 Mg PO BID Melatonin 3 Mg Tablet 3 Mg PO HS Irbesartan 300 Mg Tablet 150 Mg PO DAILY Cymbalta (Duloxetine Hcl) 30 Mg Capsule.dr 40 Mg PO DAILY I have reviewed the current psychotropics carefully including drug interactions. Risk benefit ratio favors no change other than as noted in my dictated progress note. Diagnosis: Problems: (1) Dementia (2) Agitation (3) Anxiety disorder (4) Dementia, vascular, with delusions (5) Dementia, vascular, with depression (6) Dementia in Alzheimer's disease with depression (7) Dementia in Alzheimer's disease with delusions (8) Impulse control disorder DERICK LINARES MD Apr 17, 2018 22:59
--- NOTE | 2018-04-18 04:25 | PN ---
DATE: 04/16/2018 PSYCHIATRIC PROGRESS NOTE This is a late entry of 04/16/2018, covers elements not covered in my initial note. SUBJECTIVE: I met with the patient in the evening. The patient slept 5 hours previous night. The patient was also staffed at a treatment team meeting with the entire team. This was a lengthy conference with the patient's daughter, Mayra, attending the conference. Mayra was concerned about the patient's ongoing behavioral dyscontrol, which prevents her going back to [facility] and may have her return back to if it persists. Family is agreeable to accepting some risk of sedation or over sedation to help control her behaviors, so that she can be managed back at [place]. She remained somewhat impulsive at times, anxious, labile. REVIEW OF SYSTEMS: Ambulation impaired, in wheelchair. No CV, , pulmonary, eye, ENT system symptoms on review. Reliability poor. MENTAL STATUS EXAM: Oriented to herself. Insight, judgment, recent and remote memory, attention, concentration, fund of knowledge poor, consistent with her diagnosis mentioned in my initial note. IMPRESSION: Major neurocognitive disorder, Alzheimer, vascular with delusion, depression, behavioral disturbance. Rest unchanged. PLAN: Start Depakote Sprinkles 125 mg b.i.d. Check CBC, CMP, valproic acid level in 3 days for impulse control. Continue rest unchanged from initial note. DERICK LINARES MD DR: HADLEY/maria elena JOB#: [id number] / [id number]
[2018-04-18 06:14] VITALS: BP 174/96
[2018-04-18] MEDS: DULoxetine HCL 20 MG CAPSULE.DR PO SCH (08:34)
[2018-04-18] MEDS: MEMANTINE 10 MG TABLET. PO SCH ×2 (08:35→19:50)
[2018-04-18] MEDS: QUEtiapine 25 MG TABLET. PO SCH ×3 (08:35→19:49)
[2018-04-18] MEDS: DIVALPROEX 125 MG CAP.SPRINK PO SCH ×2 (08:35→17:03)
[2018-04-18] MEDS: LISINOPRIL 10 MG TABLET PO SCH (08:36)
[2018-04-18] MEDS: CHOLECALCIFEROL (VITAMIN D3) 50,000 UNIT CAPSULE PO SCH (08:37)
[2018-04-18] MEDS: NYSTATIN TOPICAL POWDER 15GM BOTTLE. TP SCH ×2 (08:53→19:50)
[2018-04-18] MEDS: DOCUSATE 100 MG/10 ML SOLUTION. PO SCH ×2 (09:53→19:50)
[2018-04-18 16:01] VITALS: BP 140/90
[2018-04-18] MEDS: traMADol 50 MG TABLET PO SCH (19:49)
[2018-04-18] MEDS: MIRTAZAPINE 7.5 MG TABLET. PO SCH (19:49)
[2018-04-18] MEDS: ATORVASTATIN CALCIUM 10 MG TABLET. PO SCH (19:49)
[2018-04-18] MEDS: MELATONIN 3 MG TABLET PO SCH (19:50)
--- NOTE | 2018-04-18 22:25 | PDOC ---
Exam Note: Eddie Note: Please also refer to the separate dictated note~for this date of service dictated separately.~Patient seen individually. Discussed the patient with Nursing staff reviewed the chart.~Reviewed interim history and current functioning. Reviewed vital signs,~Labs/ Radiology~and current medications noted below. Continue current treatment with the changes noted in the dictated addendum note Assessment: Vital Signs: Vital Signs Date Time Temp Pulse Resp B/P (MAP) Pulse Ox O2 Delivery O2 Flow Rate FiO2 04/18/18 19:49 97 04/18/18 16:01 97.4 86 20 140/90 (107) Room Air I&O Intake and Output 04/18/18 07:01 Intake Total 480 ml Balance 480 ml Intake Oral 480 ml Current Medications: Meds: Current Medications Trimethoprim/ Sulfamethoxazole (Bactrim Ds) 1 tab 1X ONCE PO Last administered on 03/27/18at 18:31; Start 03/27/18 at 18:00; Stop 03/28/18 at 14:01 ; Status DC Acetaminophen (Tylenol) 650 mg PRN Q6HRS PRN PO PAIN / TEMP; Start 03/27/18 at 18:15 Multi-Ingredient Ointment (Analgesic [place]) 1 majo PRN QID PRN TP MUSCLE PAIN; Start 03/27/18 at 18:15 Al Hydroxide/Mg Hydroxide (Mylanta Plus Xs) 15 ml PRN AFTMEALHC PRN PO DYSPEPSIA Last administered on 04/12/18at 12:33; Start 03/27/18 at 18:15 Magnesium Hydroxide (Milk Of Magnesia) 2,400 mg PRN QHS PRN PO CONSTIPATION Last administered on 04/15/18at 20:36; Start 03/27/18 at 18:15 Tramadol HCl (Ultram) 50 mg PRN Q6HRS PRN PO PAIN Last administered on at 11:14; Start 03/27/18 at 18:15 Atorvastatin Calcium (Lipitor) 10 mg QHS PO Last administered on 04/18/18at 19:49 ; Start 03/27/18 at 21:00 Duloxetine HCl (Cymbalta) 30 mg DAILY PO Last administered on 04/08/18at 06:53; Start 03/28/18 at 09:00; Stop 04/08/18 at 16:56; Status DC Non-Formulary Medication (Irbesartan ) 150 mg DAILY PO ; Start 03/28/18 at 09:00 ; Stop 03/28/18 at 14:01; Status DC Melatonin 3 mg HS PO Last administered on 04/18/18 19:50; Start 03/27/18 at 21: 00 Memantine (Namenda) 10 mg BID PO Last administered on 04/18/18 19:50; Start 02/02 at 21:00 Quetiapine Fumarate (SEROquel) 25 mg HS PO Last administered on 03/31/18 20:20 ; Start 03/27/18 at 21:00; Stop 03/31/18 at 21:00; Status DC Lidocaine HCl (Viscous Lidocaine) 5 ml QIDACHS SWSW Last administered on 08:02; Start 03/27/18 at 21:00; Stop 04/01/18 at 12:18; Status DC Lisinopril (Prinivil) 10 mg DAILY PO Last administered on 04/18/18 08:36; Start 03/28/18 at 14:00 Olanzapine (ZyPREXA ZYDIS) 2.5 mg PRN Q2HR PRN PO ANXIETY / AGITATION Last administered on 04/18/18 09:53; Start 03/28/18 at 17:00 Trazodone HCl (Desyrel) 50 mg PRN QHS PRN PO INSOMNIA, MAY REPEAT X1 Last administered on 04/02/18 19:13; Start 03/28/18 at 17:00 Nystatin (Nystop) 1 majo BID TP Last administered on 04/18/18 19:50; Start 03/29 at 09:00 Quetiapine Fumarate (SEROquel) 12.5 mg TID@0900,1700,2100 PO Last administered on 04/18/18 19:49; Start 03/31/18 at 21:00 Mirtazapine (Remeron) 7.5 mg QHS PO Last administered on 04/18/18 19:49; Start 04/03/18 at 21:00 Vitamin D (Vitamin D3) 50,000 unit WEEKLY PO Last administered on 04/18/18 08: 37; Start 04/04/18 at 16:15 Duloxetine HCl (Cymbalta) 40 mg DAILY PO Last administered on 04/18/18 08:34; Start 04/09/18 at 09:00 Tramadol HCl (Ultram) 50 mg QHS PO Last administered on 04/18/18 19:49; Start 04/08/18 at 21:00 Furosemide (Lasix) 40 mg DAILY PO ; Start 04/14/18 at 09:00; Stop 04/14/18 at 09 :00; Status DC Divalproex Sodium (Depakote Sprinkles) 125 mg BIDWMEALS PO Last administered on 04/18/18at 17:03; Start 04/16/18 at 17:00 Bisacodyl (Dulcolax Supp) 10 mg PRN DAILY PRN [place] CONSTIPATION; Start 04/16/18 at 20:15 Docusate Sodium (Colace Solution) 100 mg BID PO Last administered on 04/18/18at 19:50; Start 04/18/18 at 10:00 Active Scripts Active Reported [place] (Menthol) 113 Gm Gel..gram. 113 Gm TP PRN QID PRN Milk Of Magnesia (Magnesium Hydroxide) 2,400 Mg/10 Ml Oral.susp 2,400 Mg PO PRN QHS PRN Advanced Antacid Liquid (Mag Hydrox/Al Hydrox/Simeth) 355 Ml Oral.susp 15 Ml PO PRN QID PRN Tylenol (Acetaminophen) 325 Mg Tablet 650 Mg PO PRN Q4HRS PRN D3-50 (Cholecalciferol (Vitamin D3)) 50,000 Unit Capsule 50,000 Unit PO WEEKLY Nystatin 15 Gm Powder 15 Gm TP BID Zyprexa Zydis (Olanzapine) 5 Mg Tab.rapdis 2.5 Mg PO PRN Q2HR PRN Trazodone Hcl 50 Mg Tablet 50 Mg PO PRN QHS PRN Remeron (Mirtazapine) 15 Mg Tablet 7.5 Mg PO HS Ultram (Tramadol HCl) 50 Mg Tablet 50 Mg PO HS Lisinopril 10 Mg Tablet 10 Mg PO DAILY Tramadol Hcl (Tramadol HCl) 50 Mg Tablet 50 Mg PO PRN Q6HRS PRN Seroquel (Quetiapine Fumarate) 25 Mg Tablet 12.5 Mg PO [id number] Namenda (Memantine Hcl) 10 Mg Tablet 10 Mg PO BID Melatonin 3 Mg Tablet 3 Mg PO HS Irbesartan 300 Mg Tablet 150 Mg PO DAILY Cymbalta (Duloxetine Hcl) 30 Mg Capsule. 40 Mg PO DAILY I have reviewed the current psychotropics carefully including drug interactions. Risk benefit ratio favors no change other than as noted in my dictated progress note. Diagnosis: Problems: (1) Dementia (2) Agitation (3) Anxiety disorder (4) Dementia, vascular, with delusions (5) Dementia, vascular, with depression (6) Dementia in Alzheimer's disease with depression (7) Dementia in Alzheimer's disease with delusions (8) Impulse control disorder DERICK LINARES MD Apr 18, 2018 22:25
[2018-04-19 05:44] LABS: CLARITY,URINE CLEAR; COLOR,URINE YELLOW
[2018-04-19 05:45] LABS: BACTERIA,URINE 0 /HPF (0-FEW); BILIRUBIN,URINE NEG (NEG); GLUCOSE,URINE NEG (NEG); HYALINE CASTS, URINE OCC /HPF; NITRITE,URINE NEG (NEG); SQUAMOUS EPITHELIAL CELL,UR FEW /LPF; UROBILINOGEN,URINE 0.2 mg/dL (0.2 mg/dL); WBC,URINE OCC /HPF (0-4)
[2018-04-19 06:04] VITALS: BP 151/84
[2018-04-19] MEDS: DOCUSATE 100 MG/10 ML SOLUTION. PO SCH ×2 (07:32→20:21)
[2018-04-19] MEDS: QUEtiapine 25 MG TABLET. PO SCH ×3 (07:33→20:20)
[2018-04-19] MEDS: DULoxetine HCL 20 MG CAPSULE.DR PO SCH (07:33)
[2018-04-19] MEDS: LISINOPRIL 10 MG TABLET PO SCH (07:33)
[2018-04-19] MEDS: NYSTATIN TOPICAL POWDER 15GM BOTTLE. TP SCH ×2 (07:33→20:21)
[2018-04-19] MEDS: DIVALPROEX 125 MG CAP.SPRINK PO SCH ×2 (07:33→16:46)
[2018-04-19] MEDS: MEMANTINE 10 MG TABLET. PO SCH ×2 (07:33→20:21)
[2018-04-19] MEDS: traMADol 50 MG TABLET PO PRN (09:29)
[2018-04-19 10:42] LABS: BASO # 0.1 x10^3/uL (0.0-0.2); BASO % 1 % (0-3); EOS # 0.2 x10^3/uL (0.0-0.7); EOS % 2 % (0-3); HEMATOCRIT 38.9 % (36.0-47.0); HEMOGLOBIN 12.9 g/dL (12.0-15.5); LYMPH # 1.9 x10^3/uL (1.0-4.8); LYMPH % 21 % (24-48); MEAN CORPUSCULAR HEMOGLOBIN 32 pg (25-35); MEAN CORPUSCULAR HGB CONC 33 g/dL (31-37); MEAN CORPUSCULAR VOLUME 95 fL (79-100); MONO # 0.8 x10^3/uL (0.0-1.1); MONO % 9 % (0-9); NEUT # 6.2 x10^3uL (1.8-7.7); NEUT % 68 % (31-73); PLATELET COUNT 223 x10^3/uL (140-400); RED CELL DISTRIBUTION WIDTH 12.9 % (11.5-14.5); WHITE BLOOD COUNT 9.2 x10^3/uL (4.0-11.0)
[2018-04-19 11:01] LABS: ALBUMIN 3.4 g/dL (3.4-5.0); ALBUMIN/GLOBULIN RATIO 0.9 (1.0-1.7); ALK PHOS 68 U/L (46-116); ALT (SGPT) 21 U/L (14-59); ANION GAP 9 (6-14); AST (SGOT) 16 U/L (15-37); BLOOD UREA NITROGEN 22 mg/dL (7-20); BUN/CREATININE RATIO 16 (6-20); CARBON DIOXIDE 29 mmol/L (21-32); CHLORIDE 106 mmol/L (98-107); CREATININE 1.4 mg/dL (0.6-1.0); GLUCOSE 120 mg/dL (70-99); POTASSIUM 4.3 mmol/L (3.5-5.1); SODIUM 144 mmol/L (136-145); TOTAL BILIRUBIN 0.8 mg/dL (0.2-1.0); TOTAL PROTEIN 7.3 g/dL (6.4-8.2)
[2018-04-19 11:05] LABS: VAL ACID 32 mcg/mL (50-100)
[2018-04-19 16:08] VITALS: BP 148/89
[2018-04-19] MEDS: MELATONIN 3 MG TABLET PO SCH (20:20)
[2018-04-19] MEDS: MIRTAZAPINE 7.5 MG TABLET. PO SCH (20:20)
[2018-04-19] MEDS: ATORVASTATIN CALCIUM 10 MG TABLET. PO SCH (20:21)
[2018-04-19] MEDS: traMADol 50 MG TABLET PO SCH (20:23)
--- NOTE | 2018-04-19 22:26 | PDOC ---
Exam Note: Eddie Note: Please also refer to the separate dictated note~for this date of service dictated separately.~Patient seen individually. Discussed the patient with Nursing staff reviewed the chart.~Reviewed interim history and current functioning. Reviewed vital signs,~Labs/ Radiology~and current medications noted below. Continue current treatment with the changes noted in the dictated addendum note Assessment: Vital Signs: Vital Signs Date Time Temp Pulse Resp B/P (MAP) Pulse Ox O2 Delivery O2 Flow Rate FiO2 04/19/18 20:23 96 04/19/18 16:08 97.4 79 18 148/89 (108) Room Air I&O Intake and Output 04/19/18 07:01 Intake Total 480 ml Balance 480 ml Intake Oral 480 ml Labs: Laboratory Tests Test 04/19/18 04:45 04/19/18 10:12 Urine Collection Type Unknown Urine Color Yellow Urine Clarity Clear Urine pH 8.0 Urine Specific [place] 1.015 Urine Protein Trace (NEG-TRACE) Urine Glucose (UA) Neg mg/dL (NEG) Urine Ketones (Stick) Neg mg/dL (NEG) Urine Blood Trace (NEG) Urine Nitrite Neg (NEG) Urine Bilirubin Neg (NEG) Urine Urobilinogen Dipstick 0.2 mg/dL (0.2 mg/dL) Urine Leukocyte Esterase Neg (NEG) Urine RBC 1-2 /HPF (0-2) Urine WBC Occ /HPF (0-4) Urine Squamous Epithelial Cells Few /LPF Urine Bacteria 0 /HPF (0-FEW) Urine Hyaline Casts Occ /HPF Urine Mucus Slight /LPF White Blood Count 9.2 x10^3/uL (4.0-11.0) Red Blood Count 4.10 x10^6/uL (3.50-5.40) Hemoglobin 12.9 g/dL (12.0-15.5) Hematocrit 38.9 % (36.0-47.0) Mean Corpuscular Volume 95 fL (79-100) Mean Corpuscular Hemoglobin 32 pg (25-35) Mean Corpuscular Hemoglobin Concent 33 g/dL (31-37) Red Cell Distribution Width 12.9 % (11.5-14.5) Platelet Count 223 x10^3/uL (140-400) Neutrophils (%) (Auto) 68 % (31-73) Lymphocytes (%) (Auto) 21 % (24-48) L Monocytes (%) (Auto) 9 % (0-9) Eosinophils (%) (Auto) 2 % (0-3) Basophils (%) (Auto) 1 % (0-3) Neutrophils # (Auto) 6.2 x10^3uL (1.8-7.7) Lymphocytes # (Auto) 1.9 x10^3/uL (1.0-4.8) Monocytes # (Auto) 0.8 x10^3/uL (0.0-1.1) Eosinophils # (Auto) 0.2 x10^3/uL (0.0-0.7) Basophils # (Auto) 0.1 x10^3/uL (0.0-0.2) Sodium Level 144 mmol/L (136-145) Potassium Level 4.3 mmol/L (3.5-5.1) Chloride Level 106 mmol/L (98-107) Carbon Dioxide Level 29 mmol/L (21-32) Anion Gap 9 (6-14) Blood Urea Nitrogen 22 mg/dL (7-20) H Creatinine 1.4 mg/dL (0.6-1.0) H Estimated GFR (Cockcroft-Gault) 36.0 BUN/Creatinine Ratio 16 (6-20) Glucose Level 120 mg/dL (70-99) H Calcium Level 10.0 mg/dL (8.5-10.1) Total Bilirubin 0.8 mg/dL (0.2-1.0) Aspartate Amino Transferase (AST) 16 U/L (15-37) Alanine Aminotransferase (ALT) 21 U/L (14-59) Alkaline Phosphatase 68 U/L (46-116) Total Protein 7.3 g/dL (6.4-8.2) Albumin 3.4 g/dL (3.4-5.0) Albumin/Globulin Ratio 0.9 (1.0-1.7) L Valproic Acid Level 32 mcg/mL (50-100) L Valproic Acid Last Dose Date 04/18/2018 Valproic Acid Last Dose Time 1700 Current Medications: Meds: Current Medications Trimethoprim/ Sulfamethoxazole (Bactrim Ds) 1 tab 1X ONCE PO Last administered on 03/27/18at 18:31; Start 03/27/18 at 18:00; Stop 03/28/18 at 14:01 ; Status DC Acetaminophen (Tylenol) 650 mg PRN Q6HRS PRN PO PAIN / TEMP; Start 03/27/18 at 18:15 Multi-Ingredient Ointment (Analgesic [place]) 1 majo PRN QID PRN TP MUSCLE PAIN; Start 03/27/18 at 18:15 Al Hydroxide/Mg Hydroxide (Mylanta Plus Xs) 15 ml PRN AFTMEALHC PRN PO DYSPEPSIA Last administered on 04/12/18 12:33; Start 03/27/18 at 18:15 Magnesium Hydroxide (Milk Of Magnesia) 2,400 mg PRN QHS PRN PO CONSTIPATION Last administered on 04/15/18 20:36; Start 03/27/18 at 18:15 Tramadol HCl (Ultram) 50 mg PRN Q6HRS PRN PO PAIN Last administered on 09:29; Start 03/27/18 at 18:15 Atorvastatin Calcium (Lipitor) 10 mg QHS PO Last administered on 04/19/18 20:21 ; Start 03/27/18 at 21:00 Duloxetine HCl (Cymbalta) 30 mg DAILY PO Last administered on 04/08/18 06:53; Start 03/28/18 at 09:00; Stop 04/08/18 at 16:56; Status DC Non-Formulary Medication (Irbesartan ) 150 mg DAILY PO ; Start 03/28/18 at 09:00 ; Stop 03/28/18 at 14:01; Status DC Melatonin 3 mg HS PO Last administered on 04/19/18 20:20; Start 03/27/18 at 21: 00 Memantine (Namenda) 10 mg BID PO Last administered on 04/19/18 20:21; Start 02/02 at 21:00 Quetiapine Fumarate (SEROquel) 25 mg HS PO Last administered on 03/31/18 20:20 ; Start 03/27/18 at 21:00; Stop 03/31/18 at 21:00; Status DC Lidocaine HCl (Viscous Lidocaine) 5 ml QIDACHS SWSW Last administered on 08:02; Start 03/27/18 at 21:00; Stop 04/01/18 at 12:18; Status DC Lisinopril (Prinivil) 10 mg DAILY PO Last administered on 04/19/18 07:33; Start 03/28/18 at 14:00 Olanzapine (ZyPREXA ZYDIS) 2.5 mg PRN Q2HR PRN PO ANXIETY / AGITATION Last administered on 04/19/18 16:53; Start 03/28/18 at 17:00 Trazodone HCl (Desyrel) 50 mg PRN QHS PRN PO INSOMNIA, MAY REPEAT X1 Last administered on 04/02/18 19:13; Start 03/28/18 at 17:00 Nystatin (Nystop) 1 majo BID TP Last administered on 04/19/18 20:21; Start 03/29 at 09:00 Quetiapine Fumarate (SEROquel) 12.5 mg TID@0900,1700,2100 PO Last administered on 04/19/18 20:20; Start 03/31/18 at 21:00 Mirtazapine (Remeron) 7.5 mg QHS PO Last administered on 04/19/18 20:20; Start 04/03/18 at 21:00 Vitamin D (Vitamin D3) 50,000 unit WEEKLY PO Last administered on 04/18/18 08: 37; Start 04/04/18 at 16:15 Duloxetine HCl (Cymbalta) 40 mg DAILY PO Last administered on 04/19/18 07:33; Start 04/09/18 at 09:00 Tramadol HCl (Ultram) 50 mg QHS PO Last administered on 04/19/18 20:23; Start 04/08/18 at 21:00 Furosemide (Lasix) 40 mg DAILY PO ; Start 04/14/18 at 09:00; Stop 04/14/18 at 09 :00; Status DC Divalproex Sodium (Depakote Sprinkles) 125 mg BIDWMEALS PO Last administered on 04/19/18 16:46; Start 04/16/18 at 17:00; Stop 04/19/18 at 19:06; Status DC Bisacodyl (Dulcolax Supp) 10 mg PRN DAILY PRN [place] CONSTIPATION; Start 04/16/18 at 20:15 Docusate Sodium (Colace Solution) 100 mg BID PO Last administered on 04/19/18 20:21; Start 04/18/18 at 10:00 Divalproex Sodium (Depakote Sprinkles) 250 mg BIDWMEALS PO ; Start 04/20/18 at 08 :00 Active Scripts Active Reported [place] (Menthol) 113 Gm Gel..gram. 113 Gm TP PRN QID PRN Milk Of Magnesia (Magnesium Hydroxide) 2,400 Mg/10 Ml Oral.susp 2,400 Mg PO PRN QHS PRN Advanced Antacid Liquid (Mag Hydrox/Al Hydrox/Simeth) 355 Ml Oral.susp 15 Ml PO PRN QID PRN Tylenol (Acetaminophen) 325 Mg Tablet 650 Mg PO PRN Q4HRS PRN D3-50 (Cholecalciferol (Vitamin D3)) 50,000 Unit Capsule 50,000 Unit PO WEEKLY Nystatin 15 Gm Powder 15 Gm TP BID Zyprexa Zydis (Olanzapine) 5 Mg Tab.rapdis 2.5 Mg PO PRN Q2HR PRN Trazodone Hcl 50 Mg Tablet 50 Mg PO PRN QHS PRN Remeron (Mirtazapine) 15 Mg Tablet 7.5 Mg PO HS Ultram (Tramadol HCl) 50 Mg Tablet 50 Mg PO HS Lisinopril 10 Mg Tablet 10 Mg PO DAILY Tramadol Hcl (Tramadol HCl) 50 Mg Tablet 50 Mg PO PRN Q6HRS PRN Seroquel (Quetiapine Fumarate) 25 Mg Tablet 12.5 Mg PO [id number] Namenda (Memantine Hcl) 10 Mg Tablet 10 Mg PO BID Melatonin 3 Mg Tablet 3 Mg PO HS Irbesartan 300 Mg Tablet 150 Mg PO DAILY Cymbalta (Duloxetine Hcl) 30 Mg Capsule.dr 40 Mg PO DAILY I have reviewed the current psychotropics carefully including drug interactions. Risk benefit ratio favors no change other than as noted in my dictated progress note. Diagnosis: Problems: (1) Dementia (2) Agitation (3) Anxiety disorder (4) Dementia, vascular, with delusions (5) Dementia, vascular, with depression (6) Dementia in Alzheimer's disease with depression (7) Dementia in Alzheimer's disease with delusions (8) Impulse control disorder DERICK LINARES MD Apr 19, 2018 22:26
--- NOTE | 2018-04-20 01:18 | PN ---
DATE: 04/17/2018 PSYCHIATRIC PROGRESS NOTE This is a late entry of 04/17/2018, covers elements that are not covered in my initial note. SUBJECTIVE: I met with the patient in the evening. The patient slept 5 hours previous night. She wheels herself in the hallway, has had some constipation and nursing staff have had to evacuate her digitally. REVIEW OF SYSTEMS: Ambulation impaired. No CV, , pulmonary, eye, ENT system symptoms on review. MENTAL STATUS EXAM: Oriented to herself. Insight, judgment, recent and remote memory, attention, concentration, fund of knowledge poor, consistent with her diagnosis mentioned in my initial note. PLAN: No change from initial note. DERICK LINARES MD DR: HADLEY/maria elena JOB#: [id number] / [id number]
[2018-04-20 06:11] VITALS: BP 177/94
[2018-04-20] MEDS: QUEtiapine 25 MG TABLET. PO SCH ×3 (07:28→21:00)
[2018-04-20] MEDS: MEMANTINE 10 MG TABLET. PO SCH ×2 (07:28→21:00)
[2018-04-20] MEDS: DOCUSATE 100 MG/10 ML SOLUTION. PO SCH ×2 (07:28→21:00)
[2018-04-20] MEDS: DULoxetine HCL 20 MG CAPSULE.DR PO SCH (07:28)
[2018-04-20] MEDS: LISINOPRIL 10 MG TABLET PO SCH (07:29)
[2018-04-20] MEDS: DIVALPROEX 125 MG CAP.SPRINK PO SCH ×2 (07:30→16:30)
[2018-04-20] MEDS: NYSTATIN TOPICAL POWDER 15GM BOTTLE. TP SCH ×2 (07:30→21:00)
[2018-04-20 11:09] LABS: BASO # 0.1 x10^3/uL (0.0-0.2); BASO % 1 % (0-3); EOS # 0.2 x10^3/uL (0.0-0.7); EOS % 2 % (0-3); HEMATOCRIT 40.8 % (36.0-47.0); HEMOGLOBIN 13.7 g/dL (12.0-15.5); LYMPH # 1.7 x10^3/uL (1.0-4.8); LYMPH % 21 % (24-48); MEAN CORPUSCULAR HEMOGLOBIN 32 pg (25-35); MEAN CORPUSCULAR HGB CONC 34 g/dL (31-37); MEAN CORPUSCULAR VOLUME 95 fL (79-100); MONO # 0.6 x10^3/uL (0.0-1.1); MONO % 8 % (0-9); NEUT # 5.4 x10^3uL (1.8-7.7); NEUT % 68 % (31-73); PLATELET COUNT 242 x10^3/uL (140-400); RED BLOOD COUNT 4.32 x10^6/uL (3.50-5.40); WHITE BLOOD COUNT 7.9 x10^3/uL (4.0-11.0)
--- NOTE | 2018-04-20 11:14 | RAD ---
AP chest radiograph 04/20/2018 CLINICAL HISTORY: Cough. An AP erect digital radiograph of the chest was obtained. Comparison study is dated 04/13/2018. The cardiac silhouette is normal in size. The thoracic aorta is tortuous. Emphysematous changes are seen involving both lungs. No acute pulmonary infiltrate is seen. No pleural effusion or pneumothorax is noted. The osseous structures are unchanged. IMPRESSION: No acute abnormality is seen. Electronically signed by: Moises Hadley MD (04/20/2018 11:10 AM) [id number]
[2018-04-20 11:19] LABS: ALBUMIN 3.6 g/dL (3.4-5.0); ALBUMIN/GLOBULIN RATIO 0.9 (1.0-1.7); CALCIUM 10.4 mg/dL (8.5-10.1); CREATININE 1.5 mg/dL (0.6-1.0); GFR 33.2; POTASSIUM 4.9 mmol/L (3.5-5.1); TOTAL BILIRUBIN 0.5 mg/dL (0.2-1.0); TOTAL PROTEIN 7.4 g/dL (6.4-8.2)
[2018-04-20 16:14] VITALS: BP 130/80
--- NOTE | 2018-04-20 20:09 | PN ---
DATE: 04/18/2018 PSYCHIATRIC PROGRESS NOTE This late entry 04/18/2018, covers elements not covered in my initial note. SUBJECTIVE: I met with the patient in the evening. The patient slept 8-1/2 hours previous night. She has been restless, combative, yelling at times. We will check a UA to make sure UTI is not worsening her agitation and we will repeat labs morning of 04/19/2018. REVIEW OF SYSTEMS: Ambulation impaired, in Broda chair. No CV, , pulmonary, eye, ENT system symptoms on review. Reliability poor. MENTAL STATUS EXAM: Oriented to herself. Insight, judgment, recent and remote memory, attention, concentration, fund of knowledge poor, consistent with her diagnosis mentioned in my initial note. PLAN: No change from initial note other than what is noted above. MAN Leonid LINARES MD DR: HADLEY/maria elena JOB#: [id number] / [id number]
[2018-04-20] MEDS: ATORVASTATIN CALCIUM 10 MG TABLET. PO SCH (21:00)
[2018-04-20] MEDS: MELATONIN 3 MG TABLET PO SCH (21:00)
[2018-04-20] MEDS: MIRTAZAPINE 7.5 MG TABLET. PO SCH (21:00)
[2018-04-20] MEDS: traMADol 50 MG TABLET PO SCH (21:00)
--- NOTE | 2018-04-20 22:32 | PDOC ---
Exam Note: Eddie Note: Please also refer to the separate dictated note~for this date of service dictated separately.~Patient seen individually. Discussed the patient with Nursing staff reviewed the chart.~Reviewed interim history and current functioning. Reviewed vital signs,~Labs/ Radiology~and current medications noted below. Continue current treatment with the changes noted in the dictated addendum note Assessment: Vital Signs: Vital Signs Date Time Temp Pulse Resp B/P (MAP) Pulse Ox O2 Delivery O2 Flow Rate FiO2 04/20/18 16:14 98.1 81 20 130/80 (97) 94 04/19/18 16:08 Room Air I&O Intake and Output 04/20/18 07:01 Intake Total 360 ml Balance 360 ml Intake Oral 360 ml Labs: Laboratory Tests Test 04/20/18 10:50 White Blood Count 7.9 x10^3/uL (4.0-11.0) Red Blood Count 4.32 x10^6/uL (3.50-5.40) Hemoglobin 13.7 g/dL (12.0-15.5) Hematocrit 40.8 % (36.0-47.0) Mean Corpuscular Volume 95 fL (79-100) Mean Corpuscular Hemoglobin 32 pg (25-35) Mean Corpuscular Hemoglobin Concent 34 g/dL (31-37) Red Cell Distribution Width 13.0 % (11.5-14.5) Platelet Count 242 x10^3/uL (140-400) Neutrophils (%) (Auto) 68 % (31-73) Lymphocytes (%) (Auto) 21 % (24-48) L Monocytes (%) (Auto) 8 % (0-9) Eosinophils (%) (Auto) 2 % (0-3) Basophils (%) (Auto) 1 % (0-3) Neutrophils # (Auto) 5.4 x10^3uL (1.8-7.7) Lymphocytes # (Auto) 1.7 x10^3/uL (1.0-4.8) Monocytes # (Auto) 0.6 x10^3/uL (0.0-1.1) Eosinophils # (Auto) 0.2 x10^3/uL (0.0-0.7) Basophils # (Auto) 0.1 x10^3/uL (0.0-0.2) Sodium Level 146 mmol/L (136-145) H Potassium Level 4.9 mmol/L (3.5-5.1) Chloride Level 109 mmol/L (98-107) H Carbon Dioxide Level 28 mmol/L (21-32) Anion Gap 9 (6-14) Blood Urea Nitrogen 23 mg/dL (7-20) H Creatinine 1.5 mg/dL (0.6-1.0) H Estimated GFR (Cockcroft-Gault) 33.2 BUN/Creatinine Ratio 15 (6-20) Glucose Level 107 mg/dL (70-99) H Calcium Level 10.4 mg/dL (8.5-10.1) H Total Bilirubin 0.5 mg/dL (0.2-1.0) Aspartate Amino Transferase (AST) 16 U/L (15-37) Alanine Aminotransferase (ALT) 23 U/L (14-59) Alkaline Phosphatase 69 U/L (46-116) Total Protein 7.4 g/dL (6.4-8.2) Albumin 3.6 g/dL (3.4-5.0) Albumin/Globulin Ratio 0.9 (1.0-1.7) L Current Medications: Meds: Current Medications Trimethoprim/ Sulfamethoxazole (Bactrim Ds) 1 tab 1X ONCE PO Last administered on 03/27/18at 18:31; Start 03/27/18 at 18:00; Stop 03/28/18 at 14:01 ; Status DC Acetaminophen (Tylenol) 650 mg PRN Q6HRS PRN PO PAIN / TEMP; Start 03/27/18 at 18:15 Multi-Ingredient Ointment (Analgesic [place]) 1 majo PRN QID PRN TP MUSCLE PAIN; Start 03/27/18 at 18:15 Al Hydroxide/Mg Hydroxide (Mylanta Plus Xs) 15 ml PRN AFTMEALHC PRN PO DYSPEPSIA Last administered on 04/12/18at 12:33; Start 03/27/18 at 18:15 Magnesium Hydroxide (Milk Of Magnesia) 2,400 mg PRN QHS PRN PO CONSTIPATION Last administered on 04/15/18at 20:36; Start 03/27/18 at 18:15 Tramadol HCl (Ultram) 50 mg PRN Q6HRS PRN PO PAIN Last administered on 09:29; Start 03/27/18 at 18:15 Atorvastatin Calcium (Lipitor) 10 mg QHS PO Last administered on 04/19/18 20:21 ; Start 03/27/18 at 21:00 Duloxetine HCl (Cymbalta) 30 mg DAILY PO Last administered on 04/08/18 06:53; Start 03/28/18 at 09:00; Stop 04/08/18 at 16:56; Status DC Non-Formulary Medication (Irbesartan ) 150 mg DAILY PO ; Start 03/28/18 at 09:00 ; Stop 03/28/18 at 14:01; Status DC Melatonin 3 mg HS PO Last administered on 04/19/18 20:20; Start 03/27/18 at 21: 00 Memantine (Namenda) 10 mg BID PO Last administered on 04/20/18 07:28; Start 02/02 at 21:00 Quetiapine Fumarate (SEROquel) 25 mg HS PO Last administered on 03/31/18 20:20 ; Start 03/27/18 at 21:00; Stop 03/31/18 at 21:00; Status DC Lidocaine HCl (Viscous Lidocaine) 5 ml QIDACHS SWSW Last administered on 08:02; Start 03/27/18 at 21:00; Stop 04/01/18 at 12:18; Status DC Lisinopril (Prinivil) 10 mg DAILY PO Last administered on 04/20/18 07:29; Start 03/28/18 at 14:00 Olanzapine (ZyPREXA ZYDIS) 2.5 mg PRN Q2HR PRN PO ANXIETY / AGITATION Last administered on 04/20/18 17:35; Start 03/28/18 at 17:00 Trazodone HCl (Desyrel) 50 mg PRN QHS PRN PO INSOMNIA, MAY REPEAT X1 Last administered on 04/02/18 19:13; Start 03/28/18 at 17:00 Nystatin (Nystop) 1 majo BID TP Last administered on 04/20/18 07:30; Start 03/29 at 09:00 Quetiapine Fumarate (SEROquel) 12.5 mg TID@0900,1700,2100 PO Last administered on 04/20/18 16:30; Start 03/31/18 at 21:00 Mirtazapine (Remeron) 7.5 mg QHS PO Last administered on 04/19/18 20:20; Start 04/03/18 at 21:00 Vitamin D (Vitamin D3) 50,000 unit WEEKLY PO Last administered on 04/18/18 08: 37; Start 04/04/18 at 16:15 Duloxetine HCl (Cymbalta) 40 mg DAILY PO Last administered on 04/20/18 07:28; Start 04/09/18 at 09:00 Tramadol HCl (Ultram) 50 mg QHS PO Last administered on 04/19/18 20:23; Start 04/08/18 at 21:00 Furosemide (Lasix) 40 mg DAILY PO ; Start 04/14/18 at 09:00; Stop 04/14/18 at 09 :00; Status DC Divalproex Sodium (Depakote Sprinkles) 125 mg BIDWMEALS PO Last administered on 04/19/18 16:46; Start 04/16/18 at 17:00; Stop 04/19/18 at 19:06; Status DC Bisacodyl (Dulcolax Supp) 10 mg PRN DAILY PRN [place] CONSTIPATION; Start 04/16/18 at 20:15 Docusate Sodium (Colace Solution) 100 mg BID PO Last administered on 04/20/18 07:28; Start 04/18/18 at 10:00 Divalproex Sodium (Depakote Sprinkles) 250 mg BIDWMEALS PO Last administered on 04/20/18 16:30; Start 04/20/18 at 08:00 Active Scripts Active Reported [place] (Menthol) 113 Gm Gel..gram. 113 Gm TP PRN QID PRN Milk Of Magnesia (Magnesium Hydroxide) 2,400 Mg/10 Ml Oral.susp 2,400 Mg PO PRN QHS PRN Advanced Antacid Liquid (Mag Hydrox/Al Hydrox/Simeth) 355 Ml Oral.susp 15 Ml PO PRN QID PRN Tylenol (Acetaminophen) 325 Mg Tablet 650 Mg PO PRN Q4HRS PRN D3-50 (Cholecalciferol (Vitamin D3)) 50,000 Unit Capsule 50,000 Unit PO WEEKLY Nystatin 15 Gm Powder 15 Gm TP BID Zyprexa Zydis (Olanzapine) 5 Mg Tab.rapdis 2.5 Mg PO PRN Q2HR PRN Trazodone Hcl 50 Mg Tablet 50 Mg PO PRN QHS PRN Remeron (Mirtazapine) 15 Mg Tablet 7.5 Mg PO HS Ultram (Tramadol HCl) 50 Mg Tablet 50 Mg PO HS Lisinopril 10 Mg Tablet 10 Mg PO DAILY Tramadol Hcl (Tramadol HCl) 50 Mg Tablet 50 Mg PO PRN Q6HRS PRN Seroquel (Quetiapine Fumarate) 25 Mg Tablet 12.5 Mg PO [id number] Namenda (Memantine Hcl) 10 Mg Tablet 10 Mg PO BID Melatonin 3 Mg Tablet 3 Mg PO HS Irbesartan 300 Mg Tablet 150 Mg PO DAILY Cymbalta (Duloxetine Hcl) 30 Mg Capsule.dr 40 Mg PO DAILY I have reviewed the current psychotropics carefully including drug interactions. Risk benefit ratio favors no change other than as noted in my dictated progress note. Diagnosis: Problems: (1) Dementia (2) Agitation (3) Anxiety disorder (4) Dementia, vascular, with delusions (5) Dementia, vascular, with depression (6) Dementia in Alzheimer's disease with depression (7) Dementia in Alzheimer's disease with delusions (8) Impulse control disorder DERICK LINARES MD Apr 20, 2018 22:32
--- NOTE | 2018-04-20 22:47 | PN ---
DATE: 04/19/2018 This late entry for 04/19/2018 covers elements not covered in my initial note. SUBJECTIVE: I met with the patient in the evening. The patient has had a difficult day. She has had a labile mood, been crying, using the F--- word, yelling at nursing staff, received Zyprexa at 09:15 with some relief of agitation and psychosis, tramadol at 09:30 and relief of pain helps her behaviors as well. REVIEW OF SYSTEMS: Ambulation impaired. No CV, , pulmonary, eye, ENT system symptoms on review. Reliability poor. MENTAL STATUS EXAM: Oriented to herself. Insight, judgment, recent and remote memory, attention, concentration, fund of knowledge poor, consistent with her diagnosis mentioned in my initial note. PLAN: Valproic acid level subtherapeutic at 32 on Depakote Sprinkles 125 mg b.i.d. We will increase to 250 mg b.i.d. Check CBC, CMP, valproic acid level in 3 days. Rest unchanged from initial note. MAN Leonid LINARES MD DR: HADLEY/maria elena JOB#: [id number] / [id number]
[2018-04-21] MEDS: traMADol 50 MG TABLET PO SCH ×2 (01:26→20:01)
[2018-04-21] MEDS: QUEtiapine 25 MG TABLET. PO SCH ×4 (01:26→19:59)
[2018-04-21] MEDS: traZODone 50 MG TABLET. PO PRN (01:27)
[2018-04-21] MEDS: MIRTAZAPINE 7.5 MG TABLET. PO SCH ×2 (01:27→19:59)
[2018-04-21 06:16] VITALS: BP 157/85
[2018-04-21] MEDS: MEMANTINE 10 MG TABLET. PO SCH ×2 (08:37→19:59)
[2018-04-21] MEDS: DIVALPROEX 125 MG CAP.SPRINK PO SCH ×2 (08:37→16:46)
[2018-04-21] MEDS: DULoxetine HCL 20 MG CAPSULE.DR PO SCH (08:37)
[2018-04-21] MEDS: DOCUSATE 100 MG/10 ML SOLUTION. PO SCH ×2 (08:38→19:59)
[2018-04-21] MEDS: LISINOPRIL 10 MG TABLET PO SCH (08:38)
[2018-04-21] MEDS: NYSTATIN TOPICAL POWDER 15GM BOTTLE. TP SCH ×2 (10:05→20:01)
[2018-04-21] MEDS: MAGNESIUM HYDROXIDE 2,400 MG/30 ML ORAL.SUSP. PO PRN (16:46)
[2018-04-21 17:04] VITALS: BP 155/80
[2018-04-21] MEDS: MELATONIN 3 MG TABLET PO SCH (19:59)
[2018-04-21] MEDS: ATORVASTATIN CALCIUM 10 MG TABLET. PO SCH (19:59)
--- NOTE | 2018-04-21 22:49 | PDOC ---
Exam Note: Eddie Note: Please also refer to the separate dictated note~for this date of service dictated separately.~Patient seen individually. Discussed the patient with Nursing staff reviewed the chart.~Reviewed interim history and current functioning. Reviewed vital signs,~Labs/ Radiology~and current medications noted below. Continue current treatment with the changes noted in the dictated addendum note Assessment: Vital Signs: Vital Signs Date Time Temp Pulse Resp B/P (MAP) Pulse Ox O2 Delivery O2 Flow Rate FiO2 04/21/18 20:01 18 Room Air 04/21/18 17:04 97.7 109 155/80 (105) 97 I&O Intake and Output 04/21/18 07:01 Intake Total 120 ml Balance 120 ml Intake Oral 120 ml Current Medications: Meds: Current Medications Trimethoprim/ Sulfamethoxazole (Bactrim Ds) 1 tab 1X ONCE PO Last administered on 03/27/18at 18:31; Start 03/27/18 at 18:00; Stop 03/28/18 at 14:01 ; Status DC Acetaminophen (Tylenol) 650 mg PRN Q6HRS PRN PO PAIN / TEMP; Start 03/27/18 at 18:15 Multi-Ingredient Ointment (Analgesic [place]) 1 majo PRN QID PRN TP MUSCLE PAIN; Start 03/27/18 at 18:15 Al Hydroxide/Mg Hydroxide (Mylanta Plus Xs) 15 ml PRN AFTMEALHC PRN PO DYSPEPSIA Last administered on 04/12/18at 12:33; Start 03/27/18 at 18:15 Magnesium Hydroxide (Milk Of Magnesia) 2,400 mg PRN QHS PRN PO CONSTIPATION Last administered on 04/21/18at 16:46; Start 03/27/18 at 18:15 Tramadol HCl (Ultram) 50 mg PRN Q6HRS PRN PO PAIN Last administered on 09:29; Start 03/27/18 at 18:15 Atorvastatin Calcium (Lipitor) 10 mg QHS PO Last administered on 04/21/18at 19:59 ; Start 03/27/18 at 21:00 Duloxetine HCl (Cymbalta) 30 mg DAILY PO Last administered on 04/08/18at 06:53; Start 03/28/18 at 09:00; Stop 04/08/18 at 16:56; Status DC Non-Formulary Medication (Irbesartan ) 150 mg DAILY PO ; Start 03/28/18 at 09:00 ; Stop 03/28/18 at 14:01; Status DC Melatonin 3 mg HS PO Last administered on 04/21/18 19:59; Start 03/27/18 at 21: 00 Memantine (Namenda) 10 mg BID PO Last administered on 04/21/18 19:59; Start 02/02 at 21:00 Quetiapine Fumarate (SEROquel) 25 mg HS PO Last administered on 03/31/18 20:20 ; Start 03/27/18 at 21:00; Stop 03/31/18 at 21:00; Status DC Lidocaine HCl (Viscous Lidocaine) 5 ml QIDACHS SWSW Last administered on 08:02; Start 03/27/18 at 21:00; Stop 04/01/18 at 12:18; Status DC Lisinopril (Prinivil) 10 mg DAILY PO Last administered on 04/21/18 08:38; Start 03/28/18 at 14:00 Olanzapine (ZyPREXA ZYDIS) 2.5 mg PRN Q2HR PRN PO ANXIETY / AGITATION Last administered on 04/21/18 06:37; Start 03/28/18 at 17:00 Trazodone HCl (Desyrel) 50 mg PRN QHS PRN PO INSOMNIA, MAY REPEAT X1 Last administered on 04/21/18 01:27; Start 03/28/18 at 17:00 Nystatin (Nystop) 1 majo BID TP Last administered on 04/21/18 20:01; Start 03/29 at 09:00 Quetiapine Fumarate (SEROquel) 12.5 mg TID@0900,1700,2100 PO Last administered on 04/21/18 19:59; Start 03/31/18 at 21:00 Mirtazapine (Remeron) 7.5 mg QHS PO Last administered on 04/21/18 19:59; Start 04/03/18 at 21:00 Vitamin D (Vitamin D3) 50,000 unit WEEKLY PO Last administered on 04/18/18 08: 37; Start 04/04/18 at 16:15 Duloxetine HCl (Cymbalta) 40 mg DAILY PO Last administered on 04/21/18 08:37; Start 04/09/18 at 09:00 Tramadol HCl (Ultram) 50 mg QHS PO Last administered on 04/21/18 20:01; Start 04/08/18 at 21:00 Furosemide (Lasix) 40 mg DAILY PO ; Start 04/14/18 at 09:00; Stop 04/14/18 at 09 :00; Status DC Divalproex Sodium (Depakote Sprinkles) 125 mg BIDWMEALS PO Last administered on 04/19/18 16:46; Start 04/16/18 at 17:00; Stop 04/19/18 at 19:06; Status DC Bisacodyl (Dulcolax Supp) 10 mg PRN DAILY PRN [place] CONSTIPATION; Start 04/16/18 at 20:15 Docusate Sodium (Colace Solution) 100 mg BID PO Last administered on 04/21/18 19:59; Start 04/18/18 at 10:00 Divalproex Sodium (Depakote Sprinkles) 250 mg BIDWMEALS PO Last administered on 04/21/18 16:46; Start 04/20/18 at 08:00 Active Scripts Active Reported [place] (Menthol) 113 Gm Gel..gram. 113 Gm TP PRN QID PRN Milk Of Magnesia (Magnesium Hydroxide) 2,400 Mg/10 Ml Oral.susp 2,400 Mg PO PRN QHS PRN Advanced Antacid Liquid (Mag Hydrox/Al Hydrox/Simeth) 355 Ml Oral.susp 15 Ml PO PRN QID PRN Tylenol (Acetaminophen) 325 Mg Tablet 650 Mg PO PRN Q4HRS PRN D3-50 (Cholecalciferol (Vitamin D3)) 50,000 Unit Capsule 50,000 Unit PO WEEKLY Nystatin 15 Gm Powder 15 Gm TP BID Zyprexa Zydis (Olanzapine) 5 Mg Tab.rapdis 2.5 Mg PO PRN Q2HR PRN Trazodone Hcl 50 Mg Tablet 50 Mg PO PRN QHS PRN Remeron (Mirtazapine) 15 Mg Tablet 7.5 Mg PO HS Ultram (Tramadol HCl) 50 Mg Tablet 50 Mg PO HS Lisinopril 10 Mg Tablet 10 Mg PO DAILY Tramadol Hcl (Tramadol HCl) 50 Mg Tablet 50 Mg PO PRN Q6HRS PRN Seroquel (Quetiapine Fumarate) 25 Mg Tablet 12.5 Mg PO [id number] Namenda (Memantine Hcl) 10 Mg Tablet 10 Mg PO BID Melatonin 3 Mg Tablet 3 Mg PO HS Irbesartan 300 Mg Tablet 150 Mg PO DAILY Cymbalta (Duloxetine Hcl) 30 Mg Capsule.dr 40 Mg PO DAILY I have reviewed the current psychotropics carefully including drug interactions. Risk benefit ratio favors no change other than as noted in my dictated progress note. Diagnosis: Problems: (1) Dementia (2) Agitation (3) Anxiety disorder (4) Dementia, vascular, with delusions (5) Dementia, vascular, with depression (6) Dementia in Alzheimer's disease with depression (7) Dementia in Alzheimer's disease with delusions (8) Impulse control disorder DERICK LINARES MD Apr 21, 2018 22:49
--- NOTE | 2018-04-21 23:27 | PN ---
DATE: 04/20/2018 PSYCHIATRIC PROGRESS NOTE This late entry 04/20/2018 covers elements not covered in my initial note. SUBJECTIVE: I met with the patient in the evening. The patient slept 9-1/2 hours previous night. In the morning, she was somewhat drowsy, refused breakfast, took meds and vanilla pudding. Later, she was having coughing and oxygen sats were low. Chest x-ray shows emphysema and lunch time, she was awake. We will defer medical management to Dr. Goss. REVIEW OF SYSTEMS: Ambulation impaired, in Broda chair. No CV, , pulmonary, eye, ENT system symptoms on review. Reliability poor. MENTAL STATUS EXAM: Oriented to herself. Insight, judgment, recent and remote memory, attention, concentration, fund of knowledge poor, consistent with her diagnosis mentioned in my initial note. PLAN: No change from initial note. MAN Leonid LINARES MD DR: HADLEY/maria elena JOB#: [id number] / [id number]
[2018-04-22 05:51] VITALS: BP 147/93
[2018-04-22] MEDS: DOCUSATE 100 MG/10 ML SOLUTION. PO SCH ×3 (07:47→20:40)
[2018-04-22] MEDS: DIVALPROEX 125 MG CAP.SPRINK PO SCH ×3 (07:47→18:06)
[2018-04-22] MEDS: MEMANTINE 10 MG TABLET. PO SCH ×2 (07:48→20:40)
[2018-04-22] MEDS: QUEtiapine 25 MG TABLET. PO SCH ×4 (07:49→20:36)
[2018-04-22] MEDS: DULoxetine HCL 20 MG CAPSULE.DR PO SCH (07:49)
[2018-04-22] MEDS: LISINOPRIL 10 MG TABLET PO SCH (07:49)
[2018-04-22] MEDS: NYSTATIN TOPICAL POWDER 15GM BOTTLE. TP SCH ×3 (07:50→20:39)
[2018-04-22 16:03] VITALS: BP 152/88
[2018-04-22 19:47] VITALS: BP 131/84
[2018-04-22] MEDS: MELATONIN 3 MG TABLET PO SCH (20:35)
[2018-04-22] MEDS: traMADol 50 MG TABLET PO SCH (20:39)
[2018-04-22] MEDS: ATORVASTATIN CALCIUM 10 MG TABLET. PO SCH (20:40)
[2018-04-22] MEDS: MIRTAZAPINE 7.5 MG TABLET. PO SCH (20:40)
--- NOTE | 2018-04-22 22:49 | PDOC ---
Exam Note: Eddie Note: Please also refer to the separate dictated note~for this date of service dictated separately.~Patient seen individually. Discussed the patient with Nursing staff reviewed the chart.~Reviewed interim history and current functioning. Reviewed vital signs,~Labs/ Radiology~and current medications noted below. Continue current treatment with the changes noted in the dictated addendum note Assessment: Vital Signs: Vital Signs Date Time Temp Pulse Resp B/P (MAP) Pulse Ox O2 Delivery O2 Flow Rate FiO2 04/22/18 20:39 18 Room Air 04/22/18 19:47 98.4 89 131/84 (100) 99 I&O Intake and Output 04/22/18 07:01 Intake Total 360 ml Balance 360 ml Intake Oral 360 ml Current Medications: Meds: Current Medications Trimethoprim/ Sulfamethoxazole (Bactrim Ds) 1 tab 1X ONCE PO Last administered on 03/27/18at 18:31; Start 03/27/18 at 18:00; Stop 03/28/18 at 14:01 ; Status DC Acetaminophen (Tylenol) 650 mg PRN Q6HRS PRN PO PAIN / TEMP; Start 03/27/18 at 18:15 Multi-Ingredient Ointment (Analgesic [place]) 1 majo PRN QID PRN TP MUSCLE PAIN; Start 03/27/18 at 18:15 Al Hydroxide/Mg Hydroxide (Mylanta Plus Xs) 15 ml PRN AFTMEALHC PRN PO DYSPEPSIA Last administered on 04/12/18at 12:33; Start 03/27/18 at 18:15 Magnesium Hydroxide (Milk Of Magnesia) 2,400 mg PRN QHS PRN PO CONSTIPATION Last administered on 04/21/18at 16:46; Start 03/27/18 at 18:15 Tramadol HCl (Ultram) 50 mg PRN Q6HRS PRN PO PAIN Last administered on 09:29; Start 03/27/18 at 18:15 Atorvastatin Calcium (Lipitor) 10 mg QHS PO Last administered on 04/22/18at 20:40 ; Start 03/27/18 at 21:00 Duloxetine HCl (Cymbalta) 30 mg DAILY PO Last administered on 04/08/18at 06:53; Start 03/28/18 at 09:00; Stop 04/08/18 at 16:56; Status DC Non-Formulary Medication (Irbesartan ) 150 mg DAILY PO ; Start 03/28/18 at 09:00 ; Stop 03/28/18 at 14:01; Status DC Melatonin 3 mg HS PO Last administered on 04/21/18 19:59; Start 03/27/18 at 21: 00 Memantine (Namenda) 10 mg BID PO Last administered on 04/22/18 07:48; Start 02/02 at 21:00 Quetiapine Fumarate (SEROquel) 25 mg HS PO Last administered on 03/31/18 20:20 ; Start 03/27/18 at 21:00; Stop 03/31/18 at 21:00; Status DC Lidocaine HCl (Viscous Lidocaine) 5 ml QIDACHS SWSW Last administered on 08:02; Start 03/27/18 at 21:00; Stop 04/01/18 at 12:18; Status DC Lisinopril (Prinivil) 10 mg DAILY PO Last administered on 04/22/18 07:49; Start 03/28/18 at 14:00 Olanzapine (ZyPREXA ZYDIS) 2.5 mg PRN Q2HR PRN PO ANXIETY / AGITATION Last administered on 04/21/18 06:37; Start 03/28/18 at 17:00 Trazodone HCl (Desyrel) 50 mg PRN QHS PRN PO INSOMNIA, MAY REPEAT X1 Last administered on 04/21/18 01:27; Start 03/28/18 at 17:00 Nystatin (Nystop) 1 majo BID TP Last administered on 04/22/18 20:39; Start 03/29 at 09:00 Quetiapine Fumarate (SEROquel) 12.5 mg TID@0900,1700,2100 PO Last administered on 04/22/18 18:06; Start 03/31/18 at 21:00 Mirtazapine (Remeron) 7.5 mg QHS PO Last administered on 04/21/18 19:59; Start 04/03/18 at 21:00 Vitamin D (Vitamin D3) 50,000 unit WEEKLY PO Last administered on 04/18/18 08: 37; Start 04/04/18 at 16:15 Duloxetine HCl (Cymbalta) 40 mg DAILY PO Last administered on 04/22/18 07:49; Start 04/09/18 at 09:00 Tramadol HCl (Ultram) 50 mg QHS PO Last administered on 04/22/18 20:39; Start 04/08/18 at 21:00 Furosemide (Lasix) 40 mg DAILY PO ; Start 04/14/18 at 09:00; Stop 04/14/18 at 09 :00; Status DC Divalproex Sodium (Depakote Sprinkles) 125 mg BIDWMEALS PO Last administered on 04/19/18 16:46; Start 04/16/18 at 17:00; Stop 04/19/18 at 19:06; Status DC Bisacodyl (Dulcolax Supp) 10 mg PRN DAILY PRN [place] CONSTIPATION; Start 04/16/18 at 20:15 Docusate Sodium (Colace Solution) 100 mg BID PO Last administered on 04/22/18 20:40; Start 04/18/18 at 10:00 Divalproex Sodium (Depakote Sprinkles) 250 mg BIDWMEALS PO Last administered on 04/22/18 18:06; Start 04/20/18 at 08:00 Active Scripts Active Reported [place] (Menthol) 113 Gm Gel..gram. 113 Gm TP PRN QID PRN Milk Of Magnesia (Magnesium Hydroxide) 2,400 Mg/10 Ml Oral.susp 2,400 Mg PO PRN QHS PRN Advanced Antacid Liquid (Mag Hydrox/Al Hydrox/Simeth) 355 Ml Oral.susp 15 Ml PO PRN QID PRN Tylenol (Acetaminophen) 325 Mg Tablet 650 Mg PO PRN Q4HRS PRN D3-50 (Cholecalciferol (Vitamin D3)) 50,000 Unit Capsule 50,000 Unit PO WEEKLY Nystatin 15 Gm Powder 15 Gm TP BID Zyprexa Zydis (Olanzapine) 5 Mg Tab.rapdis 2.5 Mg PO PRN Q2HR PRN Trazodone Hcl 50 Mg Tablet 50 Mg PO PRN QHS PRN Remeron (Mirtazapine) 15 Mg Tablet 7.5 Mg PO HS Ultram (Tramadol HCl) 50 Mg Tablet 50 Mg PO HS Lisinopril 10 Mg Tablet 10 Mg PO DAILY Tramadol Hcl (Tramadol HCl) 50 Mg Tablet 50 Mg PO PRN Q6HRS PRN Seroquel (Quetiapine Fumarate) 25 Mg Tablet 12.5 Mg PO [id number] Namenda (Memantine Hcl) 10 Mg Tablet 10 Mg PO BID Melatonin 3 Mg Tablet 3 Mg PO HS Irbesartan 300 Mg Tablet 150 Mg PO DAILY Cymbalta (Duloxetine Hcl) 30 Mg Capsule.dr 40 Mg PO DAILY I have reviewed the current psychotropics carefully including drug interactions. Risk benefit ratio favors no change other than as noted in my dictated progress note. Diagnosis: Problems: (1) Dementia (2) Agitation (3) Anxiety disorder (4) Dementia, vascular, with delusions (5) Dementia, vascular, with depression (6) Dementia in Alzheimer's disease with depression (7) Dementia in Alzheimer's disease with delusions (8) Impulse control disorder DERICK LINARES MD Apr 22, 2018 22:49
--- NOTE | 2018-04-22 23:16 | PN ---
DATE: 04/21/2018 PSYCHIATRIC PROGRESS NOTE This late entry for 04/21/2018 covers elements not covered in my initial note. SUBJECTIVE: I met with the patient in the evening. The patient slept 5 hours previous night. She was calling out most of the night, hallucinating at times, intrusive, remains in a Broda chair, somewhat sedated in the morning. Medications were held. Later in the morning, she was awake and quiet in the evening. REVIEW OF SYSTEMS: Ambulation impaired, in Broda chair. No CV, , pulmonary, eye, ENT system symptoms on review. Reliability poor. MENTAL STATUS EXAM: Oriented to herself. Insight, judgment, recent and remote memory, attention, concentration, fund of knowledge poor, consistent with her diagnosis mentioned in my initial note. PLAN: No change from initial note. MAN Leonid LINARES MD DR: HADLEY/maria elena JOB#: [id number] / [id number]
[2018-04-23] MEDS: DOCUSATE 100 MG/10 ML SOLUTION. PO SCH ×2 (07:47→19:25)
[2018-04-23] MEDS: DIVALPROEX 125 MG CAP.SPRINK PO SCH ×2 (07:48→16:28)
[2018-04-23] MEDS: QUEtiapine 25 MG TABLET. PO SCH ×3 (07:49→19:26)
[2018-04-23] MEDS: MEMANTINE 10 MG TABLET. PO SCH ×2 (07:49→19:26)
[2018-04-23] MEDS: DULoxetine HCL 20 MG CAPSULE.DR PO SCH (07:49)
[2018-04-23] MEDS: LISINOPRIL 10 MG TABLET PO SCH (07:49)
[2018-04-23] MEDS: NYSTATIN TOPICAL POWDER 15GM BOTTLE. TP SCH ×2 (07:53→19:27)
[2018-04-23 07:56] LABS: BASO # 0.1 x10^3/uL (0.0-0.2); BASO % 1 % (0-3); EOS # 0.1 x10^3/uL (0.0-0.7); EOS % 1 % (0-3); HEMATOCRIT 39.8 % (36.0-47.0); HEMOGLOBIN 13.3 g/dL (12.0-15.5); LYMPH # 1.5 x10^3/uL (1.0-4.8); LYMPH % 16 % (24-48); MEAN CORPUSCULAR HEMOGLOBIN 32 pg (25-35); MEAN CORPUSCULAR HGB CONC 33 g/dL (31-37); MEAN CORPUSCULAR VOLUME 95 fL (79-100); MONO # 0.6 x10^3/uL (0.0-1.1); MONO % 7 % (0-9); NEUT # 7.2 x10^3uL (1.8-7.7); NEUT % 76 % (31-73); PLATELET COUNT 223 x10^3/uL (140-400); RED CELL DISTRIBUTION WIDTH 13.4 % (11.5-14.5); WHITE BLOOD COUNT 9.4 x10^3/uL (4.0-11.0)
[2018-04-23 08:13] LABS: ALBUMIN 3.5 g/dL (3.4-5.0); ALBUMIN/GLOBULIN RATIO 0.8 (1.0-1.7); CALCIUM 10.5 mg/dL (8.5-10.1); CREATININE 1.5 mg/dL (0.6-1.0); GFR 33.2; POTASSIUM 4.5 mmol/L (3.5-5.1); TOTAL BILIRUBIN 0.6 mg/dL (0.2-1.0); TOTAL PROTEIN 8.1 g/dL (6.4-8.2)
[2018-04-23 08:15] LABS: VAL ACID 66 mcg/mL (50-100)
[2018-04-23 16:51] VITALS: BP 129/74
[2018-04-23] MEDS: MIRTAZAPINE 7.5 MG TABLET. PO SCH (19:25)
[2018-04-23] MEDS: MELATONIN 3 MG TABLET PO SCH (19:25)
[2018-04-23] MEDS: ATORVASTATIN CALCIUM 10 MG TABLET. PO SCH (19:25)
[2018-04-23] MEDS: traMADol 50 MG TABLET PO SCH (19:27)
--- NOTE | 2018-04-23 22:27 | PDOC ---
Exam Note: Eddie Note: Please also refer to the separate dictated note~for this date of service dictated separately.~Patient seen individually. Discussed the patient with Nursing staff reviewed the chart.~Reviewed interim history and current functioning. Reviewed vital signs,~Labs/ Radiology~and current medications noted below. Continue current treatment with the changes noted in the dictated addendum note Assessment: Vital Signs: Vital Signs Date Time Temp Pulse Resp B/P (MAP) Pulse Ox O2 Delivery O2 Flow Rate FiO2 04/23/18 21:36 18 Room Air 04/23/18 16:51 98.9 104 129/74 (92) 98 I&O Intake and Output 04/23/18 07:01 Intake Total 120 ml Balance 120 ml Intake Oral 120 ml Labs: Laboratory Tests Test 04/23/18 07:34 White Blood Count 9.4 x10^3/uL (4.0-11.0) Red Blood Count 4.20 x10^6/uL (3.50-5.40) Hemoglobin 13.3 g/dL (12.0-15.5) Hematocrit 39.8 % (36.0-47.0) Mean Corpuscular Volume 95 fL (79-100) Mean Corpuscular Hemoglobin 32 pg (25-35) Mean Corpuscular Hemoglobin Concent 33 g/dL (31-37) Red Cell Distribution Width 13.4 % (11.5-14.5) Platelet Count 223 x10^3/uL (140-400) Neutrophils (%) (Auto) 76 % (31-73) H Lymphocytes (%) (Auto) 16 % (24-48) L Monocytes (%) (Auto) 7 % (0-9) Eosinophils (%) (Auto) 1 % (0-3) Basophils (%) (Auto) 1 % (0-3) Neutrophils # (Auto) 7.2 x10^3uL (1.8-7.7) Lymphocytes # (Auto) 1.5 x10^3/uL (1.0-4.8) Monocytes # (Auto) 0.6 x10^3/uL (0.0-1.1) Eosinophils # (Auto) 0.1 x10^3/uL (0.0-0.7) Basophils # (Auto) 0.1 x10^3/uL (0.0-0.2) Sodium Level 147 mmol/L (136-145) H Potassium Level 4.5 mmol/L (3.5-5.1) Chloride Level 109 mmol/L (98-107) H Carbon Dioxide Level 28 mmol/L (21-32) Anion Gap 10 (6-14) Blood Urea Nitrogen 38 mg/dL (7-20) H Creatinine 1.5 mg/dL (0.6-1.0) H Estimated GFR (Cockcroft-Gault) 33.2 BUN/Creatinine Ratio 25 (6-20) H Glucose Level 93 mg/dL (70-99) Calcium Level 10.5 mg/dL (8.5-10.1) H Total Bilirubin 0.6 mg/dL (0.2-1.0) Aspartate Amino Transferase (AST) 17 U/L (15-37) Alanine Aminotransferase (ALT) 19 U/L (14-59) Alkaline Phosphatase 64 U/L (46-116) Total Protein 8.1 g/dL (6.4-8.2) Albumin 3.5 g/dL (3.4-5.0) Albumin/Globulin Ratio 0.8 (1.0-1.7) L Valproic Acid Level 66 mcg/mL (50-100) Valproic Acid Last Dose Date 04/19/2018 Valproic Acid Last Dose Time 1700 Current Medications: Meds: Current Medications Trimethoprim/ Sulfamethoxazole (Bactrim Ds) 1 tab 1X ONCE PO Last administered on 03/27/18at 18:31; Start 03/27/18 at 18:00; Stop 03/28/18 at 14:01 ; Status DC Acetaminophen (Tylenol) 650 mg PRN Q6HRS PRN PO PAIN / TEMP; Start 03/27/18 at 18:15 Multi-Ingredient Ointment (Analgesic [place]) 1 majo PRN QID PRN TP MUSCLE PAIN; Start 03/27/18 at 18:15 Al Hydroxide/Mg Hydroxide (Mylanta Plus Xs) 15 ml PRN AFTMEALHC PRN PO DYSPEPSIA Last administered on 04/12/18at 12:33; Start 03/27/18 at 18:15 Magnesium Hydroxide (Milk Of Magnesia) 2,400 mg PRN QHS PRN PO CONSTIPATION Last administered on 04/21/18at 16:46; Start 03/27/18 at 18:15 Tramadol HCl (Ultram) 50 mg PRN Q6HRS PRN PO PAIN Last administered on 09:29; Start 03/27/18 at 18:15 Atorvastatin Calcium (Lipitor) 10 mg QHS PO Last administered on 04/23/18 19:25 ; Start 03/27/18 at 21:00 Duloxetine HCl (Cymbalta) 30 mg DAILY PO Last administered on 04/08/18 06:53; Start 03/28/18 at 09:00; Stop 04/08/18 at 16:56; Status DC Non-Formulary Medication (Irbesartan ) 150 mg DAILY PO ; Start 03/28/18 at 09:00 ; Stop 03/28/18 at 14:01; Status DC Melatonin 3 mg HS PO Last administered on 04/23/18 19:25; Start 03/27/18 at 21: 00 Memantine (Namenda) 10 mg BID PO Last administered on 04/23/18 19:26; Start 02/02 at 21:00 Quetiapine Fumarate (SEROquel) 25 mg HS PO Last administered on 03/31/18 20:20 ; Start 03/27/18 at 21:00; Stop 03/31/18 at 21:00; Status DC Lidocaine HCl (Viscous Lidocaine) 5 ml QIDACHS SWSW Last administered on 08:02; Start 03/27/18 at 21:00; Stop 04/01/18 at 12:18; Status DC Lisinopril (Prinivil) 10 mg DAILY PO Last administered on 04/23/18 07:49; Start 03/28/18 at 14:00 Olanzapine (ZyPREXA ZYDIS) 2.5 mg PRN Q2HR PRN PO ANXIETY / AGITATION Last administered on 04/21/18 06:37; Start 03/28/18 at 17:00 Trazodone HCl (Desyrel) 50 mg PRN QHS PRN PO INSOMNIA, MAY REPEAT X1 Last administered on 04/21/18 01:27; Start 03/28/18 at 17:00 Nystatin (Nystop) 1 majo BID TP Last administered on 04/23/18 19:27; Start 03/29 at 09:00 Quetiapine Fumarate (SEROquel) 12.5 mg TID@0900,1700,2100 PO Last administered on 04/23/18 19:26; Start 03/31/18 at 21:00 Mirtazapine (Remeron) 7.5 mg QHS PO Last administered on 04/23/18 19:25; Start 04/03/18 at 21:00 Vitamin D (Vitamin D3) 50,000 unit WEEKLY PO Last administered on 04/18/18 08: 37; Start 04/04/18 at 16:15 Duloxetine HCl (Cymbalta) 40 mg DAILY PO Last administered on 04/23/18 07:49; Start 04/09/18 at 09:00 Tramadol HCl (Ultram) 50 mg QHS PO Last administered on 04/23/18 19:27; Start 04/08/18 at 21:00 Furosemide (Lasix) 40 mg DAILY PO ; Start 04/14/18 at 09:00; Stop 04/14/18 at 09 :00; Status DC Divalproex Sodium (Depakote Sprinkles) 125 mg BIDWMEALS PO Last administered on 04/19/18 16:46; Start 04/16/18 at 17:00; Stop 04/19/18 at 19:06; Status DC Bisacodyl (Dulcolax Supp) 10 mg PRN DAILY PRN [place] CONSTIPATION; Start 04/16/18 at 20:15 Docusate Sodium (Colace Solution) 100 mg BID PO Last administered on 04/23/18 19:25; Start 04/18/18 at 10:00 Divalproex Sodium (Depakote Sprinkles) 250 mg BIDWMEALS PO Last administered on 04/23/18 16:28; Start 04/20/18 at 08:00 Active Scripts Active Reported [place] (Menthol) 113 Gm Gel..gram. 113 Gm TP PRN QID PRN Milk Of Magnesia (Magnesium Hydroxide) 2,400 Mg/10 Ml Oral.susp 2,400 Mg PO PRN QHS PRN Advanced Antacid Liquid (Mag Hydrox/Al Hydrox/Simeth) 355 Ml Oral.susp 15 Ml PO PRN QID PRN Tylenol (Acetaminophen) 325 Mg Tablet 650 Mg PO PRN Q4HRS PRN D3-50 (Cholecalciferol (Vitamin D3)) 50,000 Unit Capsule 50,000 Unit PO WEEKLY Nystatin 15 Gm Powder 15 Gm TP BID Zyprexa Zydis (Olanzapine) 5 Mg Tab.rapdis 2.5 Mg PO PRN Q2HR PRN Trazodone Hcl 50 Mg Tablet 50 Mg PO PRN QHS PRN Remeron (Mirtazapine) 15 Mg Tablet 7.5 Mg PO HS Ultram (Tramadol HCl) 50 Mg Tablet 50 Mg PO HS Lisinopril 10 Mg Tablet 10 Mg PO DAILY Tramadol Hcl (Tramadol HCl) 50 Mg Tablet 50 Mg PO PRN Q6HRS PRN Seroquel (Quetiapine Fumarate) 25 Mg Tablet 12.5 Mg PO [id number] Namenda (Memantine Hcl) 10 Mg Tablet 10 Mg PO BID Melatonin 3 Mg Tablet 3 Mg PO HS Irbesartan 300 Mg Tablet 150 Mg PO DAILY Cymbalta (Duloxetine Hcl) 30 Mg Capsule.dr 40 Mg PO DAILY I have reviewed the current psychotropics carefully including drug interactions. Risk benefit ratio favors no change other than as noted in my dictated progress note. Diagnosis: Problems: (1) Dementia (2) Agitation (3) Anxiety disorder (4) Dementia, vascular, with delusions (5) Dementia, vascular, with depression (6) Dementia in Alzheimer's disease with depression (7) Dementia in Alzheimer's disease with delusions (8) Impulse control disorder DERICK LINARES MD Apr 23, 2018 22:27
--- NOTE | 2018-04-23 22:55 | PN ---
DATE: 04/22/2018 PSYCHIATRIC PROGRESS NOTE This late entry 04/22/2018 covers elements not covered in my initial note. SUBJECTIVE: I met with the patient in the evening and staffed at a treatment team meeting with the entire team earlier in the day. The patient slept 6-1/2 hours. Appetite around 50%, somewhat tired, withdrawn, sleeps all day, but less aggressive. REVIEW OF SYSTEMS: Ambulation impaired. No CV, , pulmonary, eye, ENT system symptoms on review. MENTAL STATUS EXAM: Oriented to herself. Insight, judgment, recent and remote memory, attention, concentration, fund of knowledge poor, consistent with her diagnosis mentioned in my initial note. PLAN: No change from initial note. DERICK LINARES MD DR: HADLEY/maria elena JOB#: [id number] / [id number]
[2018-04-24 05:53] VITALS: BP 122/70
[2018-04-24] MEDS: MEMANTINE 10 MG TABLET. PO SCH ×2 (09:32→20:02)
[2018-04-24] MEDS: QUEtiapine 25 MG TABLET. PO SCH ×3 (09:32→20:02)
[2018-04-24] MEDS: DULoxetine HCL 20 MG CAPSULE.DR PO SCH (09:32)
[2018-04-24] MEDS: DOCUSATE 100 MG/10 ML SOLUTION. PO SCH ×2 (09:32→20:02)
[2018-04-24] MEDS: LISINOPRIL 10 MG TABLET PO SCH (09:32)
[2018-04-24] MEDS: DIVALPROEX 125 MG CAP.SPRINK PO SCH ×2 (09:32→17:00)
[2018-04-24] MEDS: NYSTATIN TOPICAL POWDER 15GM BOTTLE. TP SCH ×2 (09:33→20:03)
[2018-04-24 16:42] VITALS: BP 154/88
[2018-04-24] MEDS: MIRTAZAPINE 7.5 MG TABLET. PO SCH (20:02)
[2018-04-24] MEDS: ATORVASTATIN CALCIUM 10 MG TABLET. PO SCH (20:03)
[2018-04-24] MEDS: MELATONIN 3 MG TABLET PO SCH (20:03)
[2018-04-24] MEDS: traMADol 50 MG TABLET PO SCH (20:03)
--- NOTE | 2018-04-24 22:19 | PN ---
DATE: 04/23/2018 This late entry for 04/23/2018 covers elements not covered in my initial note. SUBJECTIVE: I met with the patient in the evening. The patient has been more awake during the day, but still quite a bit weaker as we have adjusted her psychotropics for mood lability and agitation. She took a nap after lunch. Valproic acid level is 66. She got her tramadol at 02:40 a.m. and pain worsens her behaviors and agitation. REVIEW OF SYSTEMS: Ambulation impaired. No CV, , pulmonary, eye, ENT system symptoms on review. Reliability poor. MENTAL STATUS EXAM: Oriented to herself. Insight, judgment, recent and remote memory, attention, concentration, fund of knowledge poor, consistent with her diagnosis mentioned in my initial note. PLAN: No change from initial note. MAN Leonid LINARES MD DR: HADLEY/maria elena JOB#: [id number] / [id number]
--- NOTE | 2018-04-24 22:36 | PDOC ---
Exam Note: Eddie Note: Please also refer to the separate dictated note~for this date of service dictated separately.~Patient seen individually. Discussed the patient with Nursing staff reviewed the chart.~Reviewed interim history and current functioning. Reviewed vital signs,~Labs/ Radiology~and current medications noted below. Continue current treatment with the changes noted in the dictated addendum note Assessment: Vital Signs: Vital Signs Date Time Temp Pulse Resp B/P (MAP) Pulse Ox O2 Delivery O2 Flow Rate FiO2 04/24/18 21:03 Room Air 04/24/18 16:42 97.2 92 18 154/88 (110) 97 I&O Intake and Output 04/24/18 07:01 Intake Total 660 ml Balance 660 ml Intake Oral 660 ml # Bowel Movements 1 Current Medications: Meds: Current Medications Trimethoprim/ Sulfamethoxazole (Bactrim Ds) 1 tab 1X ONCE PO Last administered on 03/27/18at 18:31; Start 03/27/18 at 18:00; Stop 03/28/18 at 14:01 ; Status DC Acetaminophen (Tylenol) 650 mg PRN Q6HRS PRN PO PAIN / TEMP; Start 03/27/18 at 18:15 Multi-Ingredient Ointment (Analgesic [place]) 1 majo PRN QID PRN TP MUSCLE PAIN; Start 03/27/18 at 18:15 Al Hydroxide/Mg Hydroxide (Mylanta Plus Xs) 15 ml PRN AFTMEALHC PRN PO DYSPEPSIA Last administered on 04/12/18at 12:33; Start 03/27/18 at 18:15 Magnesium Hydroxide (Milk Of Magnesia) 2,400 mg PRN QHS PRN PO CONSTIPATION Last administered on 04/21/18at 16:46; Start 03/27/18 at 18:15 Tramadol HCl (Ultram) 50 mg PRN Q6HRS PRN PO PAIN Last administered on 09:29; Start 03/27/18 at 18:15 Atorvastatin Calcium (Lipitor) 10 mg QHS PO Last administered on 04/24/18at 20:03 ; Start 03/27/18 at 21:00 Duloxetine HCl (Cymbalta) 30 mg DAILY PO Last administered on 04/08/18at 06:53; Start 03/28/18 at 09:00; Stop 04/08/18 at 16:56; Status DC Non-Formulary Medication (Irbesartan ) 150 mg DAILY PO ; Start 03/28/18 at 09:00 ; Stop 03/28/18 at 14:01; Status DC Melatonin 3 mg HS PO Last administered on 04/24/18 20:03; Start 03/27/18 at 21: 00 Memantine (Namenda) 10 mg BID PO Last administered on 04/24/18 20:02; Start 02/02 at 21:00 Quetiapine Fumarate (SEROquel) 25 mg HS PO Last administered on 03/31/18 20:20 ; Start 03/27/18 at 21:00; Stop 03/31/18 at 21:00; Status DC Lidocaine HCl (Viscous Lidocaine) 5 ml QIDACHS SWSW Last administered on 08:02; Start 03/27/18 at 21:00; Stop 04/01/18 at 12:18; Status DC Lisinopril (Prinivil) 10 mg DAILY PO Last administered on 04/24/18 09:32; Start 03/28/18 at 14:00 Olanzapine (ZyPREXA ZYDIS) 2.5 mg PRN Q2HR PRN PO ANXIETY / AGITATION Last administered on 04/21/18 06:37; Start 03/28/18 at 17:00 Trazodone HCl (Desyrel) 50 mg PRN QHS PRN PO INSOMNIA, MAY REPEAT X1 Last administered on 04/21/18 01:27; Start 03/28/18 at 17:00 Nystatin (Nystop) 1 majo BID TP Last administered on 04/24/18 20:03; Start 03/29 at 09:00 Quetiapine Fumarate (SEROquel) 12.5 mg TID@0900,1700,2100 PO Last administered on 04/24/18 20:02; Start 03/31/18 at 21:00 Mirtazapine (Remeron) 7.5 mg QHS PO Last administered on 04/24/18 20:02; Start 04/03/18 at 21:00 Vitamin D (Vitamin D3) 50,000 unit WEEKLY PO Last administered on 04/18/18 08: 37; Start 04/04/18 at 16:15 Duloxetine HCl (Cymbalta) 40 mg DAILY PO Last administered on 04/24/18 09:32; Start 04/09/18 at 09:00 Tramadol HCl (Ultram) 50 mg QHS PO Last administered on 04/24/18 20:03; Start 04/08/18 at 21:00 Furosemide (Lasix) 40 mg DAILY PO ; Start 04/14/18 at 09:00; Stop 04/14/18 at 09 :00; Status DC Divalproex Sodium (Depakote Sprinkles) 125 mg BIDWMEALS PO Last administered on 04/19/18 16:46; Start 04/16/18 at 17:00; Stop 04/19/18 at 19:06; Status DC Bisacodyl (Dulcolax Supp) 10 mg PRN DAILY PRN [place] CONSTIPATION Last administered on 04/23/18 23:25; Start 04/16/18 at 20:15 Docusate Sodium (Colace Solution) 100 mg BID PO Last administered on 04/24/18 20:02; Start 04/18/18 at 10:00 Divalproex Sodium (Depakote Sprinkles) 250 mg BIDWMEALS PO Last administered on 04/24/18 17:00; Start 04/20/18 at 08:00 Active Scripts Active Reported [place] (Menthol) 113 Gm Gel..gram. 113 Gm TP PRN QID PRN Milk Of Magnesia (Magnesium Hydroxide) 2,400 Mg/10 Ml Oral.susp 2,400 Mg PO PRN QHS PRN Advanced Antacid Liquid (Mag Hydrox/Al Hydrox/Simeth) 355 Ml Oral.susp 15 Ml PO PRN QID PRN Tylenol (Acetaminophen) 325 Mg Tablet 650 Mg PO PRN Q4HRS PRN D3-50 (Cholecalciferol (Vitamin D3)) 50,000 Unit Capsule 50,000 Unit PO WEEKLY Nystatin 15 Gm Powder 15 Gm TP BID Zyprexa Zydis (Olanzapine) 5 Mg Tab.rapdis 2.5 Mg PO PRN Q2HR PRN Trazodone Hcl 50 Mg Tablet 50 Mg PO PRN QHS PRN Remeron (Mirtazapine) 15 Mg Tablet 7.5 Mg PO HS Ultram (Tramadol HCl) 50 Mg Tablet 50 Mg PO HS Lisinopril 10 Mg Tablet 10 Mg PO DAILY Tramadol Hcl (Tramadol HCl) 50 Mg Tablet 50 Mg PO PRN Q6HRS PRN Seroquel (Quetiapine Fumarate) 25 Mg Tablet 12.5 Mg PO [id number] Namenda (Memantine Hcl) 10 Mg Tablet 10 Mg PO BID Melatonin 3 Mg Tablet 3 Mg PO HS Irbesartan 300 Mg Tablet 150 Mg PO DAILY Cymbalta (Duloxetine Hcl) 30 Mg Capsule.dr 40 Mg PO DAILY I have reviewed the current psychotropics carefully including drug interactions. Risk benefit ratio favors no change other than as noted in my dictated progress note. Diagnosis: Problems: (1) Dementia (2) Agitation (3) Anxiety disorder (4) Dementia, vascular, with delusions (5) Dementia, vascular, with depression (6) Dementia in Alzheimer's disease with depression (7) Dementia in Alzheimer's disease with delusions (8) Impulse control disorder DERICK LINARES MD Apr 24, 2018 22:35
[2018-04-25 06:40] VITALS: BP 159/94
[2018-04-25] MEDS: DIVALPROEX 125 MG CAP.SPRINK PO SCH ×2 (08:05→17:00)
[2018-04-25] MEDS: DOCUSATE 100 MG/10 ML SOLUTION. PO SCH ×2 (08:05→21:23)
[2018-04-25] MEDS: CHOLECALCIFEROL (VITAMIN D3) 50,000 UNIT CAPSULE PO SCH (08:06)
[2018-04-25] MEDS: DULoxetine HCL 20 MG CAPSULE.DR PO SCH (08:06)
[2018-04-25] MEDS: LISINOPRIL 10 MG TABLET PO SCH (08:06)
[2018-04-25] MEDS: MEMANTINE 10 MG TABLET. PO SCH ×2 (08:06→21:23)
[2018-04-25] MEDS: QUEtiapine 25 MG TABLET. PO SCH ×3 (08:06→21:25)
[2018-04-25] MEDS: NYSTATIN TOPICAL POWDER 15GM BOTTLE. TP SCH ×2 (08:07→21:25)
[2018-04-25 16:44] VITALS: BP 153/72
[2018-04-25] MEDS: MELATONIN 3 MG TABLET PO SCH (21:23)
[2018-04-25] MEDS: MIRTAZAPINE 7.5 MG TABLET. PO SCH (21:24)
[2018-04-25] MEDS: traMADol 50 MG TABLET PO SCH (21:25)
[2018-04-25] MEDS: ATORVASTATIN CALCIUM 10 MG TABLET. PO SCH (21:26)
--- NOTE | 2018-04-25 21:56 | PDOC ---
Exam Note: Eddie Note: Please also refer to the separate dictated note~for this date of service dictated separately.~Patient seen individually. Discussed the patient with Nursing staff reviewed the chart.~Reviewed interim history and current functioning. Reviewed vital signs,~Labs/ Radiology~and current medications noted below. Continue current treatment with the changes noted in the dictated addendum note Assessment: Vital Signs: Vital Signs Date Time Temp Pulse Resp B/P (MAP) Pulse Ox O2 Delivery O2 Flow Rate FiO2 04/25/18 21:25 20 100 Room Air 04/25/18 16:44 97.6 101 153/72 (99) I&O Intake and Output 04/25/18 07:01 Intake Total 240 ml Balance 240 ml Intake Oral 240 ml Current Medications: Meds: Current Medications Trimethoprim/ Sulfamethoxazole (Bactrim Ds) 1 tab 1X ONCE PO Last administered on 03/27/18at 18:31; Start 03/27/18 at 18:00; Stop 03/28/18 at 14:01 ; Status DC Acetaminophen (Tylenol) 650 mg PRN Q6HRS PRN PO PAIN / TEMP; Start 03/27/18 at 18:15 Multi-Ingredient Ointment (Analgesic [place]) 1 majo PRN QID PRN TP MUSCLE PAIN; Start 03/27/18 at 18:15 Al Hydroxide/Mg Hydroxide (Mylanta Plus Xs) 15 ml PRN AFTMEALHC PRN PO DYSPEPSIA Last administered on 04/12/18at 12:33; Start 03/27/18 at 18:15 Magnesium Hydroxide (Milk Of Magnesia) 2,400 mg PRN QHS PRN PO CONSTIPATION Last administered on 04/21/18at 16:46; Start 03/27/18 at 18:15 Tramadol HCl (Ultram) 50 mg PRN Q6HRS PRN PO PAIN Last administered on 09:29; Start 03/27/18 at 18:15 Atorvastatin Calcium (Lipitor) 10 mg QHS PO Last administered on 04/25/18at 21:26 ; Start 03/27/18 at 21:00 Duloxetine HCl (Cymbalta) 30 mg DAILY PO Last administered on 04/08/18at 06:53; Start 03/28/18 at 09:00; Stop 04/08/18 at 16:56; Status DC Non-Formulary Medication (Irbesartan ) 150 mg DAILY PO ; Start 03/28/18 at 09:00 ; Stop 03/28/18 at 14:01; Status DC Melatonin 3 mg HS PO Last administered on 04/25/18 21:23; Start 03/27/18 at 21: 00 Memantine (Namenda) 10 mg BID PO Last administered on 04/25/18 21:23; Start 02/02 at 21:00 Quetiapine Fumarate (SEROquel) 25 mg HS PO Last administered on 03/31/18 20:20 ; Start 03/27/18 at 21:00; Stop 03/31/18 at 21:00; Status DC Lidocaine HCl (Viscous Lidocaine) 5 ml QIDACHS SWSW Last administered on 08:02; Start 03/27/18 at 21:00; Stop 04/01/18 at 12:18; Status DC Lisinopril (Prinivil) 10 mg DAILY PO Last administered on 04/25/18 08:06; Start 03/28/18 at 14:00 Olanzapine (ZyPREXA ZYDIS) 2.5 mg PRN Q2HR PRN PO ANXIETY / AGITATION Last administered on 04/21/18 06:37; Start 03/28/18 at 17:00 Trazodone HCl (Desyrel) 50 mg PRN QHS PRN PO INSOMNIA, MAY REPEAT X1 Last administered on 04/21/18 01:27; Start 03/28/18 at 17:00 Nystatin (Nystop) 1 majo BID TP Last administered on 04/25/18 21:25; Start 03/29 at 09:00 Quetiapine Fumarate (SEROquel) 12.5 mg TID@0900,1700,2100 PO Last administered on 04/25/18 21:25; Start 03/31/18 at 21:00 Mirtazapine (Remeron) 7.5 mg QHS PO Last administered on 04/25/18 21:24; Start 04/03/18 at 21:00 Vitamin D (Vitamin D3) 50,000 unit WEEKLY PO Last administered on 04/25/18 08: 06; Start 04/04/18 at 16:15 Duloxetine HCl (Cymbalta) 40 mg DAILY PO Last administered on 04/25/18 08:06; Start 04/09/18 at 09:00 Tramadol HCl (Ultram) 50 mg QHS PO Last administered on 04/25/18 21:25; Start 04/08/18 at 21:00 Furosemide (Lasix) 40 mg DAILY PO ; Start 04/14/18 at 09:00; Stop 04/14/18 at 09 :00; Status DC Divalproex Sodium (Depakote Sprinkles) 125 mg BIDWMEALS PO Last administered on 04/19/18at 16:46; Start 04/16/18 at 17:00; Stop 04/19/18 at 19:06; Status DC Bisacodyl (Dulcolax Supp) 10 mg PRN DAILY PRN [place] CONSTIPATION Last administered on 04/23/18 23:25; Start 04/16/18 at 20:15 Docusate Sodium (Colace Solution) 100 mg BID PO Last administered on 04/25/18 21:23; Start 04/18/18 at 10:00 Divalproex Sodium (Depakote Sprinkles) 250 mg BIDWMEALS PO Last administered on 04/25/18 08:05; Start 04/20/18 at 08:00 Active Scripts Active Reported Bengay (Menthol) 113 Gm Gel..gram. 113 Gm TP PRN QID PRN Milk Of Magnesia (Magnesium Hydroxide) 2,400 Mg/10 Ml Oral.susp 2,400 Mg PO PRN QHS PRN Advanced Antacid Liquid (Mag Hydrox/Al Hydrox/Simeth) 355 Ml Oral.susp 15 Ml PO PRN QID PRN Tylenol (Acetaminophen) 325 Mg Tablet 650 Mg PO PRN Q4HRS PRN D3-50 (Cholecalciferol (Vitamin D3)) 50,000 Unit Capsule 50,000 Unit PO WEEKLY Nystatin 15 Gm Powder 15 Gm TP BID Zyprexa Zydis (Olanzapine) 5 Mg Tab.rapdis 2.5 Mg PO PRN Q2HR PRN Trazodone Hcl 50 Mg Tablet 50 Mg PO PRN QHS PRN Remeron (Mirtazapine) 15 Mg Tablet 7.5 Mg PO HS Ultram (Tramadol HCl) 50 Mg Tablet 50 Mg PO HS Lisinopril 10 Mg Tablet 10 Mg PO DAILY Tramadol Hcl (Tramadol HCl) 50 Mg Tablet 50 Mg PO PRN Q6HRS PRN Seroquel (Quetiapine Fumarate) 25 Mg Tablet 12.5 Mg PO [id number] Namenda (Memantine Hcl) 10 Mg Tablet 10 Mg PO BID Melatonin 3 Mg Tablet 3 Mg PO HS Irbesartan 300 Mg Tablet 150 Mg PO DAILY Cymbalta (Duloxetine Hcl) 30 Mg Capsule.dr 40 Mg PO DAILY I have reviewed the current psychotropics carefully including drug interactions. Risk benefit ratio favors no change other than as noted in my dictated progress note. Diagnosis: Problems: (1) Dementia (2) Agitation (3) Anxiety disorder (4) Dementia, vascular, with delusions (5) Dementia, vascular, with depression (6) Dementia in Alzheimer's disease with depression (7) Dementia in Alzheimer's disease with delusions (8) Impulse control disorder DERICK LINARES MD Apr 25, 2018 21:56
--- NOTE | 2018-04-25 23:35 | PN ---
DATE: 04/24/2018 PSYCHIATRIC PROGRESS NOTE This late entry for 04/24/2018 covers elements not covered in my initial note. SUBJECTIVE: I met with the patient in the evening. The patient slept 5-1/2 hours previous night. She was not up for breakfast, but compliant with medications, not trying to get up out of the Broda chair. REVIEW OF SYSTEMS: No CV, , pulmonary, eye, ENT system symptoms on review. Reliability poor. MENTAL STATUS EXAM: Oriented to herself. Insight, judgment, recent and remote memory, attention, concentration, and fund of knowledge poor, consistent with her diagnosis mentioned in my initial note. Valproic acid level is therapeutic at 66, hematocrit 39.8. She had a large amount of stool that had to be manually removed and then was less agitated. IMPRESSION: Unchanged from initial note. No CV, , eye, ENT or pulmonary system symptoms on review. MENTAL STATUS EXAM: Oriented to herself. Insight, judgment, recent and remote memory, attention, concentration, fund of knowledge poor, consistent with her diagnosis. PLAN: No change from initial note. DERICK LINARES MD DR: HADLEY/maria elena JOB#: [id number] / [id number]
[2018-04-26 06:46] VITALS: BP 138/80
[2018-04-26] MEDS: MEMANTINE 10 MG TABLET. PO SCH ×2 (07:50→21:00)
[2018-04-26] MEDS: DULoxetine HCL 20 MG CAPSULE.DR PO SCH (07:50)
[2018-04-26] MEDS: DOCUSATE 100 MG/10 ML SOLUTION. PO SCH ×2 (07:50→21:00)
[2018-04-26] MEDS: DIVALPROEX 125 MG CAP.SPRINK PO SCH ×2 (07:50→17:00)
[2018-04-26] MEDS: LISINOPRIL 10 MG TABLET PO SCH (07:50)
[2018-04-26] MEDS: NYSTATIN TOPICAL POWDER 15GM BOTTLE. TP SCH ×2 (07:51→21:00)
[2018-04-26] MEDS: QUEtiapine 25 MG TABLET. PO SCH ×3 (07:51→22:53)
[2018-04-26 17:00] VITALS: BP 138/87
[2018-04-26] MEDS: ATORVASTATIN CALCIUM 10 MG TABLET. PO SCH (21:00)
--- NOTE | 2018-04-26 22:45 | PDOC ---
Exam Note: Eddie Note: Please also refer to the separate dictated note~for this date of service dictated separately.~Patient seen individually. Discussed the patient with Nursing staff reviewed the chart.~Reviewed interim history and current functioning. Reviewed vital signs,~Labs/ Radiology~and current medications noted below. Continue current treatment with the changes noted in the dictated addendum note Assessment: Vital Signs: Vital Signs Date Time Temp Pulse Resp B/P (MAP) Pulse Ox O2 Delivery O2 Flow Rate FiO2 04/26/18 17:00 97.6 105 20 138/87 (104) 95 04/26/18 06:46 Room Air I&O Intake and Output 04/26/18 07:01 Intake Total 480 ml Balance 480 ml Intake Oral 480 ml # Voids 1 Current Medications: Meds: Current Medications Trimethoprim/ Sulfamethoxazole (Bactrim Ds) 1 tab 1X ONCE PO Last administered on 03/27/18at 18:31; Start 03/27/18 at 18:00; Stop 03/28/18 at 14:01 ; Status DC Acetaminophen (Tylenol) 650 mg PRN Q6HRS PRN PO PAIN / TEMP; Start 03/27/18 at 18:15 Multi-Ingredient Ointment (Analgesic [place]) 1 majo PRN QID PRN TP MUSCLE PAIN; Start 03/27/18 at 18:15 Al Hydroxide/Mg Hydroxide (Mylanta Plus Xs) 15 ml PRN AFTMEALHC PRN PO DYSPEPSIA Last administered on 04/12/18at 12:33; Start 03/27/18 at 18:15 Magnesium Hydroxide (Milk Of Magnesia) 2,400 mg PRN QHS PRN PO CONSTIPATION Last administered on 04/21/18at 16:46; Start 03/27/18 at 18:15 Tramadol HCl (Ultram) 50 mg PRN Q6HRS PRN PO PAIN Last administered on 09:29; Start 03/27/18 at 18:15 Atorvastatin Calcium (Lipitor) 10 mg QHS PO Last administered on 04/25/18at 21:26 ; Start 03/27/18 at 21:00 Duloxetine HCl (Cymbalta) 30 mg DAILY PO Last administered on 04/08/18at 06:53; Start 03/28/18 at 09:00; Stop 04/08/18 at 16:56; Status DC Non-Formulary Medication (Irbesartan ) 150 mg DAILY PO ; Start 03/28/18 at 09:00 ; Stop 03/28/18 at 14:01; Status DC Melatonin 3 mg HS PO Last administered on 04/25/18 21:23; Start 03/27/18 at 21: 00 Memantine (Namenda) 10 mg BID PO Last administered on 04/26/18 07:50; Start at 21:00 Quetiapine Fumarate (SEROquel) 25 mg HS PO Last administered on 03/31/18 20:20 ; Start 03/27/18 at 21:00; Stop 03/31/18 at 21:00; Status DC Lidocaine HCl (Viscous Lidocaine) 5 ml QIDACHS SWSW Last administered on 08:02; Start 03/27/18 at 21:00; Stop 04/01/18 at 12:18; Status DC Lisinopril (Prinivil) 10 mg DAILY PO Last administered on 04/26/18 07:50; Start 03/28/18 at 14:00 Olanzapine (ZyPREXA ZYDIS) 2.5 mg PRN Q2HR PRN PO ANXIETY / AGITATION Last administered on 04/21/18 06:37; Start 03/28/18 at 17:00 Trazodone HCl (Desyrel) 50 mg PRN QHS PRN PO INSOMNIA, MAY REPEAT X1 Last administered on 04/21/18 01:27; Start 03/28/18 at 17:00 Nystatin (Nystop) 1 majo BID TP Last administered on 04/26/18 07:51; Start at 09:00 Quetiapine Fumarate (SEROquel) 12.5 mg TID@0900,1700,2100 PO Last administered on 04/26/18 07:51; Start 03/31/18 at 21:00 Mirtazapine (Remeron) 7.5 mg QHS PO Last administered on 04/25/18 21:24; Start 04/03/18 at 21:00 Vitamin D (Vitamin D3) 50,000 unit WEEKLY PO Last administered on 04/25/18 08: 06; Start 04/04/18 at 16:15 Duloxetine HCl (Cymbalta) 40 mg DAILY PO Last administered on 04/26/18 07:50; Start 04/09/18 at 09:00 Tramadol HCl (Ultram) 50 mg QHS PO Last administered on 04/25/18 21:25; Start 04/08/18 at 21:00 Furosemide (Lasix) 40 mg DAILY PO ; Start 04/14/18 at 09:00; Stop 04/14/18 at 09 :00; Status DC Divalproex Sodium (Depakote Sprinkles) 125 mg BIDWMEALS PO Last administered on 04/19/18at 16:46; Start 04/16/18 at 17:00; Stop 04/19/18 at 19:06; Status DC Bisacodyl (Dulcolax Supp) 10 mg PRN DAILY PRN [place] CONSTIPATION Last administered on 04/23/18 23:25; Start 04/16/18 at 20:15 Docusate Sodium (Colace Solution) 100 mg BID PO Last administered on 04/26/18 07:50; Start 04/18/18 at 10:00 Divalproex Sodium (Depakote Sprinkles) 250 mg BIDWMEALS PO Last administered on 04/26/18 07:50; Start 04/20/18 at 08:00 Active Scripts Active Reported [place] (Menthol) 113 Gm Gel..gram. 113 Gm TP PRN QID PRN Milk Of Magnesia (Magnesium Hydroxide) 2,400 Mg/10 Ml Oral.susp 2,400 Mg PO PRN QHS PRN Advanced Antacid Liquid (Mag Hydrox/Al Hydrox/Simeth) 355 Ml Oral.susp 15 Ml PO PRN QID PRN Tylenol (Acetaminophen) 325 Mg Tablet 650 Mg PO PRN Q4HRS PRN D3-50 (Cholecalciferol (Vitamin D3)) 50,000 Unit Capsule 50,000 Unit PO WEEKLY Nystatin 15 Gm Powder 15 Gm TP BID Zyprexa Zydis (Olanzapine) 5 Mg Tab.rapdis 2.5 Mg PO PRN Q2HR PRN Trazodone Hcl 50 Mg Tablet 50 Mg PO PRN QHS PRN Remeron (Mirtazapine) 15 Mg Tablet 7.5 Mg PO HS Ultram (Tramadol HCl) 50 Mg Tablet 50 Mg PO HS Lisinopril 10 Mg Tablet 10 Mg PO DAILY Tramadol Hcl (Tramadol HCl) 50 Mg Tablet 50 Mg PO PRN Q6HRS PRN Seroquel (Quetiapine Fumarate) 25 Mg Tablet 12.5 Mg PO [id number] Namenda (Memantine Hcl) 10 Mg Tablet 10 Mg PO BID Melatonin 3 Mg Tablet 3 Mg PO HS Irbesartan 300 Mg Tablet 150 Mg PO DAILY Cymbalta (Duloxetine Hcl) 30 Mg Capsule.dr 40 Mg PO DAILY I have reviewed the current psychotropics carefully including drug interactions. Risk benefit ratio favors no change other than as noted in my dictated progress note. Diagnosis: Problems: (1) Dementia (2) Agitation (3) Anxiety disorder (4) Dementia, vascular, with delusions (5) Dementia, vascular, with depression (6) Dementia in Alzheimer's disease with depression (7) Dementia in Alzheimer's disease with delusions (8) Impulse control disorder DERICK LINARES MD Apr 26, 2018 22:45
[2018-04-26] MEDS: traMADol 50 MG TABLET PO SCH (22:52)
[2018-04-26] MEDS: MELATONIN 3 MG TABLET PO SCH (22:53)
[2018-04-26] MEDS: MIRTAZAPINE 7.5 MG TABLET. PO SCH (22:53)
--- NOTE | 2018-04-27 00:17 | PN ---
DATE: 04/25/2018 PSYCHIATRIC PROGRESS NOTE This late entry 04/25/2018 covers elements not covered in my initial note. SUBJECTIVE: I met with the patient in the evening. The patient slept 8-1/4 hours previous night. She remains confused, withdrawn, less aggressive. Oral intake is poor. We will check labs in the morning. REVIEW OF SYSTEMS: No CV, , pulmonary, eye, ENT system symptoms on review. Reliability poor. MENTAL STATUS EXAM: Oriented to herself. Insight, judgment, recent and remote memory, attention, concentration, fund of knowledge poor, consistent with her diagnosis mentioned in my initial note. PLAN: No change from initial note. DERICK LINARES MD DR: HADLEY/maria elena JOB#: [id number] / [id number]
[2018-04-27] MEDS ORDERED: BISA10SU4 RC (02:41)
[2018-04-27] MEDS ORDERED: ATOR10TA60 PO (02:44)
[2018-04-27] MEDS ORDERED: DIVA125C2 PO (02:45)
[2018-04-27] MEDS ORDERED: DOCU50LI PO (02:47)
[2018-04-27 06:06] VITALS: BP 149/88
[2018-04-27 07:38] LABS: BASO % 0 % (0-3); EOS % 0 % (0-3); HEMATOCRIT 42.6 % (36.0-47.0); LYMPH # 1.8 x10^3/uL (1.0-4.8); LYMPH % 16 % (24-48); MEAN CORPUSCULAR HEMOGLOBIN 31 pg (25-35); MEAN CORPUSCULAR HGB CONC 33 g/dL (31-37); MEAN CORPUSCULAR VOLUME 95 fL (79-100); MONO # 0.8 x10^3/uL (0.0-1.1); MONO % 7 % (0-9); NEUT # 8.8 x10^3uL (1.8-7.7); NEUT % 77 % (31-73); PLATELET COUNT 251 x10^3/uL (140-400); RED BLOOD COUNT 4.48 x10^6/uL (3.50-5.40); RED CELL DISTRIBUTION WIDTH 13.2 % (11.5-14.5); WHITE BLOOD COUNT 11.3 x10^3/uL (4.0-11.0)
[2018-04-27 07:48] LABS: ALBUMIN 3.6 g/dL (3.4-5.0); ALBUMIN/GLOBULIN RATIO 0.8 (1.0-1.7); CALCIUM 10.8 mg/dL (8.5-10.1); CREATININE 1.6 mg/dL (0.6-1.0); GFR 30.8; POTASSIUM 4.3 mmol/L (3.5-5.1); TOTAL BILIRUBIN 0.5 mg/dL (0.2-1.0); TOTAL PROTEIN 8.2 g/dL (6.4-8.2)
[2018-04-27] MEDS: MEMANTINE 10 MG TABLET. PO SCH (08:33)
[2018-04-27] MEDS: DULoxetine HCL 20 MG CAPSULE.DR PO SCH (08:33)
[2018-04-27 08:34] VITALS: BP 149/88
[2018-04-27] MEDS: LISINOPRIL 10 MG TABLET PO SCH (08:34)
[2018-04-27] MEDS: QUEtiapine 25 MG TABLET. PO SCH (08:34)
[2018-04-27] MEDS: NYSTATIN TOPICAL POWDER 15GM BOTTLE. TP SCH (08:35)
[2018-04-27] MEDS: DIVALPROEX 125 MG CAP.SPRINK PO SCH (08:35)
[2018-04-27] MEDS: DOCUSATE 100 MG/10 ML SOLUTION. PO SCH (08:35)
--- NOTE | 2018-04-27 18:58 | PDOC ---
Exam Note: Eddie Note: Please also refer to the separate dictated note~for this date of service dictated separately.~Patient seen individually. Discussed the patient with Nursing staff reviewed the chart.~Reviewed interim history and current functioning. Reviewed vital signs,~Labs/ Radiology~and current medications noted below. Continue current treatment with the changes noted in the dictated addendum note Assessment: Vital Signs: Vital Signs Date Time Temp Pulse Resp B/P (MAP) Pulse Ox O2 Delivery O2 Flow Rate FiO2 04/27/18 08:34 82 149/88 04/27/18 06:06 97.4 16 97 04/26/18 06:46 Room Air I&O Intake and Output 04/27/18 07:01 Intake Total 60 ml Balance 60 ml Intake Oral 60 ml Labs: Laboratory Tests Test 04/27/18 06:53 White Blood Count 11.3 x10^3/uL (4.0-11.0) H Red Blood Count 4.48 x10^6/uL (3.50-5.40) Hemoglobin 14.0 g/dL (12.0-15.5) Hematocrit 42.6 % (36.0-47.0) Mean Corpuscular Volume 95 fL (79-100) Mean Corpuscular Hemoglobin 31 pg (25-35) Mean Corpuscular Hemoglobin Concent 33 g/dL (31-37) Red Cell Distribution Width 13.2 % (11.5-14.5) Platelet Count 251 x10^3/uL (140-400) Neutrophils (%) (Auto) 77 % (31-73) H Lymphocytes (%) (Auto) 16 % (24-48) L Monocytes (%) (Auto) 7 % (0-9) Eosinophils (%) (Auto) 0 % (0-3) Basophils (%) (Auto) 0 % (0-3) Neutrophils # (Auto) 8.8 x10^3uL (1.8-7.7) H Lymphocytes # (Auto) 1.8 x10^3/uL (1.0-4.8) Monocytes # (Auto) 0.8 x10^3/uL (0.0-1.1) Eosinophils # (Auto) 0.0 x10^3/uL (0.0-0.7) Basophils # (Auto) 0.0 x10^3/uL (0.0-0.2) Sodium Level 153 mmol/L (136-145) H Potassium Level 4.3 mmol/L (3.5-5.1) Chloride Level 114 mmol/L (98-107) H Carbon Dioxide Level 30 mmol/L (21-32) Anion Gap 9 (6-14) Blood Urea Nitrogen 56 mg/dL (7-20) H Creatinine 1.6 mg/dL (0.6-1.0) H Estimated GFR (Cockcroft-Gault) 30.8 BUN/Creatinine Ratio 35 (6-20) H Glucose Level 106 mg/dL (70-99) H Calcium Level 10.8 mg/dL (8.5-10.1) H Total Bilirubin 0.5 mg/dL (0.2-1.0) Aspartate Amino Transferase (AST) 18 U/L (15-37) Alanine Aminotransferase (ALT) 24 U/L (14-59) Alkaline Phosphatase 61 U/L (46-116) Total Protein 8.2 g/dL (6.4-8.2) Albumin 3.6 g/dL (3.4-5.0) Albumin/Globulin Ratio 0.8 (1.0-1.7) L Current Medications: Meds: Current Medications Trimethoprim/ Sulfamethoxazole (Bactrim Ds) 1 tab 1X ONCE PO Last administered on 03/27/18at 18:31; Start 03/27/18 at 18:00; Stop 03/28/18 at 14:01 ; Status DC Acetaminophen (Tylenol) 650 mg PRN Q6HRS PRN PO PAIN / TEMP; Start 03/27/18 at 18:15; Stop 04/27/18 at 13:19; Status DC Multi-Ingredient Ointment (Analgesic [place]) 1 majo PRN QID PRN TP MUSCLE PAIN; Start 03/27/18 at 18:15; Stop 04/27/18 at 13:19; Status DC Al Hydroxide/Mg Hydroxide (Mylanta Plus Xs) 15 ml PRN AFTMEALHC PRN PO DYSPEPSIA Last administered on 04/12/18at 12:33; Start 03/27/18 at 18:15; Stop at 13:19; Status DC Magnesium Hydroxide (Milk Of Magnesia) 2,400 mg PRN QHS PRN PO CONSTIPATION Last administered on 04/21/18 16:46; Start 03/27/18 at 18:15; Stop 04/27/18 at 13:19; Status DC Tramadol HCl (Ultram) 50 mg PRN Q6HRS PRN PO PAIN Last administered on 09:29; Start 03/27/18 at 18:15; Stop 04/27/18 at 13:19; Status DC Atorvastatin Calcium (Lipitor) 10 mg QHS PO Last administered on 04/25/18 21:26 ; Start 03/27/18 at 21:00; Stop 04/27/18 at 13:19; Status DC Duloxetine HCl (Cymbalta) 30 mg DAILY PO Last administered on 04/08/18 06:53; Start 03/28/18 at 09:00; Stop 04/08/18 at 16:56; Status DC Non-Formulary Medication (Irbesartan ) 150 mg DAILY PO ; Start 03/28/18 at 09:00 ; Stop 03/28/18 at 14:01; Status DC Melatonin 3 mg HS PO Last administered on 04/26/18at 22:53; Start 03/27/18 at 21 :00; Stop 04/27/18 at 13:19; Status DC Memantine (Namenda) 10 mg BID PO Last administered on 04/27/18 08:33; Start at 21:00; Stop 04/27/18 at 13:19; Status DC Quetiapine Fumarate (SEROquel) 25 mg HS PO Last administered on 03/31/18 20:20 ; Start 03/27/18 at 21:00; Stop 03/31/18 at 21:00; Status DC Lidocaine HCl (Viscous Lidocaine) 5 ml QIDACHS SWSW Last administered on 08:02; Start 03/27/18 at 21:00; Stop 04/01/18 at 12:18; Status DC Lisinopril (Prinivil) 10 mg DAILY PO Last administered on 04/27/18 08:34; Start 03/28/18 at 14:00; Stop 04/27/18 at 13:19; Status DC Olanzapine (ZyPREXA ZYDIS) 2.5 mg PRN Q2HR PRN PO ANXIETY / AGITATION Last administered on 2/5/19at 06:37; Start 03/28/18 at 17:00; Stop 04/27/18 at 13:19 ; Status DC Trazodone HCl (Desyrel) 50 mg PRN QHS PRN PO INSOMNIA, MAY REPEAT X1 Last administered on 04/21/18at 01:27; Start 03/28/18 at 17:00; Stop 04/27/18 at 13:19 ; Status DC Nystatin (Nystop) 1 majo BID TP Last administered on 04/27/18at 08:35; Start at 09:00; Stop 04/27/18 at 13:19; Status DC Quetiapine Fumarate (SEROquel) 12.5 mg TID@0900,1700,2100 PO Last administered on 04/27/18at 08:34; Start 03/31/18 at 21:00; Stop 04/27/18 at 13:19; Status DC Mirtazapine (Remeron) 7.5 mg QHS PO Last administered on 04/26/18at 22:53; Start 04/03/18 at 21:00; Stop 04/27/18 at 13:19; Status DC Vitamin D (Vitamin D3) 50,000 unit WEEKLY PO Last administered on 04/25/18at 08: 06; Start 04/04/18 at 16:15; Stop 04/27/18 at 13:19; Status DC Duloxetine HCl (Cymbalta) 40 mg DAILY PO Last administered on 04/27/18at 08:33; Start 04/09/18 at 09:00; Stop 04/27/18 at 13:19; Status DC Tramadol HCl (Ultram) 50 mg QHS PO Last administered on 04/26/18at 22:52; Start 04/08/18 at 21:00; Stop 04/27/18 at 13:19; Status DC Furosemide (Lasix) 40 mg DAILY PO ; Start 04/14/18 at 09:00; Stop 04/14/18 at 09 :00; Status DC Divalproex Sodium (Depakote Sprinkles) 125 mg BIDWMEALS PO Last administered on 04/19/18at 16:46; Start 04/16/18 at 17:00; Stop 04/19/18 at 19:06; Status DC Bisacodyl (Dulcolax Supp) 10 mg PRN DAILY PRN [place] CONSTIPATION Last administered on 04/23/18at 23:25; Start 04/16/18 at 20:15; Stop 04/27/18 at 13:19 ; Status DC Docusate Sodium (Colace Solution) 100 mg BID PO Last administered on 04/27/18at 08:35; Start 04/18/18 at 10:00; Stop 04/27/18 at 13:19; Status DC Divalproex Sodium (Depakote Sprinkles) 250 mg BIDWMEALS PO Last administered on 04/27/18at 08:35; Start 04/20/18 at 08:00; Stop 04/27/18 at 13:19; Status DC Active Scripts Active Reported Docusate Sodium 50 Mg/5 Ml Liquid 100 Mg PO BID Depakote Sprinkle (Divalproex Sodium) 125 Mg Cap.sprink 250 Mg PO BIDWMEALS Atorvastatin Calcium 10 Mg Tablet 10 Mg PO QHS Bisacodyl 10 Mg Supp.rect 10 Mg RC PRN DAILY PRN [place]ay (Menthol) 113 Gm Gel..gram. 113 Gm TP PRN QID PRN Milk Of Magnesia (Magnesium Hydroxide) 2,400 Mg/10 Ml Oral.susp 2,400 Mg PO PRN QHS PRN Advanced Antacid Liquid (Mag Hydrox/Al Hydrox/Simeth) 355 Ml Oral.susp 15 Ml PO PRN QID PRN Tylenol (Acetaminophen) 325 Mg Tablet 650 Mg PO PRN Q4HRS PRN D3-50 (Cholecalciferol (Vitamin D3)) 50,000 Unit Capsule 50,000 Unit PO WEEKLY Nystatin 15 Gm Powder 15 Gm TP BID Zyprexa Zydis (Olanzapine) 5 Mg Tab.rapdis 2.5 Mg PO PRN Q2HR PRN Trazodone Hcl 50 Mg Tablet 50 Mg PO PRN QHS PRN Remeron (Mirtazapine) 15 Mg Tablet 7.5 Mg PO HS Ultram (Tramadol HCl) 50 Mg Tablet 50 Mg PO HS Lisinopril 10 Mg Tablet 10 Mg PO DAILY Tramadol Hcl (Tramadol HCl) 50 Mg Tablet 50 Mg PO PRN Q6HRS PRN Seroquel (Quetiapine Fumarate) 25 Mg Tablet 12.5 Mg PO TID@0900,1700,2100 Namenda (Memantine Hcl) 10 Mg Tablet 10 Mg PO BID Melatonin 3 Mg Tablet 3 Mg PO HS Cymbalta (Duloxetine Hcl) 30 Mg Capsule. 40 Mg PO DAILY I have reviewed the current psychotropics carefully including drug interactions. Risk benefit ratio favors no change other than as noted in my dictated progress note. Diagnosis: Problems: (1) Impulse control disorder (2) Dementia in Alzheimer's disease with delusions (3) Dementia in Alzheimer's disease with depression (4) Dementia, vascular, with depression (5) Dementia, vascular, with delusions (6) Anxiety disorder DERICK LINARES MD Apr 27, 2018 18:58
--- NOTE | 2018-04-27 21:15 | PN ---
DATE: 04/26/2018 PSYCHIATRIC PROGRESS NOTE This late entry 04/26/2018 covers elements not covered in my initial note. SUBJECTIVE: I met with the patient in the evening. The patient slept 7-1/4 hours previous night. She is somewhat dehydrated. We will check labs in the morning. We will defer to Dr. Goss. Withdrawn, remains in a Broda chair. REVIEW OF SYSTEMS: No CV, , pulmonary, eye system symptoms on review. MENTAL STATUS EXAM: Oriented to herself. Insight, judgment, recent and remote memory, attention, concentration, fund of knowledge poor, consistent with her diagnosis mentioned in my initial note. PLAN: No change from initial note with discharge plan for 04/27/2018. Labs to be checked 04/27/2018. Defer to Dr. Goss. MAN Leonid LINARES MD DR: HADLEY/maria elena JOB#: [id number] / [id number]
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
--- NOTE | 2018-04-28 22:48 | PDOC ---
Exam Note: Eddie Note: Please also refer to the separate dictated note~for this date of service dictated separately.~Patient seen individually. Discussed the patient with Nursing staff reviewed the chart.~Reviewed interim history and current functioning. Reviewed vital signs,~Labs/ Radiology~and current medications noted below. Continue current treatment with the changes noted in the dictated addendum note Assessment: Vital Signs: Vital Signs Date Time Temp Pulse Resp B/P (MAP) Pulse Ox O2 Delivery O2 Flow Rate FiO2 04/27/18 08:34 82 149/88 04/27/18 06:06 97.4 16 97 04/26/18 06:46 Room Air Current Medications: Meds: Current Medications Trimethoprim/ Sulfamethoxazole (Bactrim Ds) 1 tab 1X ONCE PO Last administered on 03/27/18at 18:31; Start 03/27/18 at 18:00; Stop 03/28/18 at 14:01 ; Status DC Acetaminophen (Tylenol) 650 mg PRN Q6HRS PRN PO PAIN / TEMP; Start 03/27/18 at 18:15; Stop 04/27/18 at 13:19; Status DC Multi-Ingredient Ointment (Analgesic Snyder) 1 majo PRN QID PRN TP MUSCLE PAIN; Start 03/27/18 at 18:15; Stop 04/27/18 at 13:19; Status DC Al Hydroxide/Mg Hydroxide (Mylanta Plus Xs) 15 ml PRN AFTMEALHC PRN PO DYSPEPSIA Last administered on 04/12/18at 12:33; Start 03/27/18 at 18:15; Stop at 13:19; Status DC Magnesium Hydroxide (Milk Of Magnesia) 2,400 mg PRN QHS PRN PO CONSTIPATION Last administered on 04/21/18 16:46; Start 03/27/18 at 18:15; Stop 04/27/18 at 13:19; Status DC Tramadol HCl (Ultram) 50 mg PRN Q6HRS PRN PO PAIN Last administered on 09:29; Start 03/27/18 at 18:15; Stop 04/27/18 at 13:19; Status DC Atorvastatin Calcium (Lipitor) 10 mg QHS PO Last administered on 04/25/18 21:26 ; Start 03/27/18 at 21:00; Stop 04/27/18 at 13:19; Status DC Duloxetine HCl (Cymbalta) 30 mg DAILY PO Last administered on 04/08/18at 06:53; Start 03/28/18 at 09:00; Stop 04/08/18 at 16:56; Status DC Non-Formulary Medication (Irbesartan ) 150 mg DAILY PO ; Start 03/28/18 at 09:00 ; Stop 03/28/18 at 14:01; Status DC Melatonin 3 mg HS PO Last administered on 04/26/18at 22:53; Start 03/27/18 at 21 :00; Stop 04/27/18 at 13:19; Status DC Memantine (Namenda) 10 mg BID PO Last administered on 04/27/18at 08:33; Start at 21:00; Stop 04/27/18 at 13:19; Status DC Quetiapine Fumarate (SEROquel) 25 mg HS PO Last administered on 03/31/18at 20:20 ; Start 03/27/18 at 21:00; Stop 03/31/18 at 21:00; Status DC Lidocaine HCl (Viscous Lidocaine) 5 ml QIDACHS SWSW Last administered on at 08:02; Start 03/27/18 at 21:00; Stop 04/01/18 at 12:18; Status DC Lisinopril (Prinivil) 10 mg DAILY PO Last administered on 04/27/18at 08:34; Start 03/28/18 at 14:00; Stop 04/27/18 at 13:19; Status DC Olanzapine (ZyPREXA ZYDIS) 2.5 mg PRN Q2HR PRN PO ANXIETY / AGITATION Last administered on 04/21/18at 06:37; Start 03/28/18 at 17:00; Stop 04/27/18 at 13:19 ; Status DC Trazodone HCl (Desyrel) 50 mg PRN QHS PRN PO INSOMNIA, MAY REPEAT X1 Last administered on 04/21/18at 01:27; Start 03/28/18 at 17:00; Stop 04/27/18 at 13:19 ; Status DC Nystatin (Nystop) 1 majo BID TP Last administered on 04/27/18at 08:35; Start at 09:00; Stop 04/27/18 at 13:19; Status DC Quetiapine Fumarate (SEROquel) 12.5 mg TID@0900,1700,2100 PO Last administered on 04/27/18at 08:34; Start 03/31/18 at 21:00; Stop 04/27/18 at 13:19; Status DC Mirtazapine (Remeron) 7.5 mg QHS PO Last administered on 04/26/18 22:53; Start 04/03/18 at 21:00; Stop 04/27/18 at 13:19; Status DC Vitamin D (Vitamin D3) 50,000 unit WEEKLY PO Last administered on 04/25/18 08: 06; Start 04/04/18 at 16:15; Stop 04/27/18 at 13:19; Status DC Duloxetine HCl (Cymbalta) 40 mg DAILY PO Last administered on 04/27/18at 08:33; Start 04/09/18 at 09:00; Stop 04/27/18 at 13:19; Status DC Tramadol HCl (Ultram) 50 mg QHS PO Last administered on 04/26/18at 22:52; Start 04/08/18 at 21:00; Stop 04/27/18 at 13:19; Status DC Furosemide (Lasix) 40 mg DAILY PO ; Start 04/14/18 at 09:00; Stop 04/14/18 at 09 :00; Status DC Divalproex Sodium (Depakote Sprinkles) 125 mg BIDWMEALS PO Last administered on 04/19/18at 16:46; Start 04/16/18 at 17:00; Stop 04/19/18 at 19:06; Status DC Bisacodyl (Dulcolax Supp) 10 mg PRN DAILY PRN MD CONSTIPATION Last administered on 04/23/18at 23:25; Start 04/16/18 at 20:15; Stop 04/27/18 at 13:19 ; Status DC Docusate Sodium (Colace Solution) 100 mg BID PO Last administered on 04/27/18at 08:35; Start 04/18/18 at 10:00; Stop 04/27/18 at 13:19; Status DC Divalproex Sodium (Depakote Sprinkles) 250 mg BIDWMEALS PO Last administered on 04/27/18at 08:35; Start 04/20/18 at 08:00; Stop 04/27/18 at 13:19; Status DC Active Scripts Active Reported Docusate Sodium 50 Mg/5 Ml Liquid 100 Mg PO BID Depakote Sprinkle (Divalproex Sodium) 125 Mg Cap.sprink 250 Mg PO BIDWMEALS Atorvastatin Calcium 10 Mg Tablet 10 Mg PO QHS Bisacodyl 10 Mg Supp.rect 10 Mg RC PRN DAILY PRN Bengay (Menthol) 113 Gm Gel..gram. 113 Gm TP PRN QID PRN Milk Of Magnesia (Magnesium Hydroxide) 2,400 Mg/10 Ml Oral.susp 2,400 Mg PO PRN QHS PRN Advanced Antacid Liquid (Mag Hydrox/Al Hydrox/Simeth) 355 Ml Oral.susp 15 Ml PO PRN QID PRN Tylenol (Acetaminophen) 325 Mg Tablet 650 Mg PO PRN Q4HRS PRN D3-50 (Cholecalciferol (Vitamin D3)) 50,000 Unit Capsule 50,000 Unit PO WEEKLY Nystatin 15 Gm Powder 15 Gm TP BID Zyprexa Zydis (Olanzapine) 5 Mg Tab.rapdis 2.5 Mg PO PRN Q2HR PRN Trazodone Hcl 50 Mg Tablet 50 Mg PO PRN QHS PRN Remeron (Mirtazapine) 15 Mg Tablet 7.5 Mg PO HS Ultram (Tramadol HCl) 50 Mg Tablet 50 Mg PO HS Lisinopril 10 Mg Tablet 10 Mg PO DAILY Tramadol Hcl (Tramadol HCl) 50 Mg Tablet 50 Mg PO PRN Q6HRS PRN Seroquel (Quetiapine Fumarate) 25 Mg Tablet 12.5 Mg PO TID@0900,1700,2100 Namenda (Memantine Hcl) 10 Mg Tablet 10 Mg PO BID Melatonin 3 Mg Tablet 3 Mg PO HS Cymbalta (Duloxetine Hcl) 30 Mg Capsule. 40 Mg PO DAILY I have reviewed the current psychotropics carefully including drug interactions. Risk benefit ratio favors no change other than as noted in my dictated progress note. 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
== END 2018-04-27 12:40 | disposition hospice, inpatient (51) | DRG 57 ==
LOC: ER 16:18 → GEROPSY 17:44
PROVIDERS: ADMIT Psychiatry & Neurology Psychiatry; ATTEND Psychiatry & Neurology Psychiatry
DX: G30.9 Alzheimer's disease, unspecified (principal); F01.51 Vascular dementia, unspecified severity, with behavioral disturbance; F02.81 Dementia in other diseases classified elsewhere, unspecified severity, with behavioral disturbance; F41.1 Generalized anxiety disorder; F32.9 Major depressive disorder, single episode, unspecified; G20 Parkinson's disease; E21.3 Hyperparathyroidism, unspecified; E78.5 Hyperlipidemia, unspecified; E86.0 Dehydration; G89.29 Other chronic pain; I10 Essential (primary) hypertension; F63.9 Impulse disorder, unspecified; I45.10 Unspecified right bundle-branch block; J43.9 Emphysema, unspecified; K59.00 Constipation, unspecified; M10.9 Gout, unspecified; M48.00 Spinal stenosis, site unspecified; M54.16 Radiculopathy, lumbar region; Z98.41 Cataract extraction status, right eye; Z98.42 Cataract extraction status, left eye; Z79.899 Other long term (current) drug therapy; Z88.8 Allergy status to other drugs, medicaments and biological substances
CPT/HCPCS: 36415; 71045; 71046; 80053; 80061; 80164; 81001; 82306; 82607; 83036; 83540; 83550; 83735; 84436; 84443; 84480; 85025; 86592; 87086; 93005; 92610; 99285-25